=== PATIENT | female | born 1985 | race Caucasian/White ===

== ENCOUNTER 2017-03-30 08:35 | Emergency (ER) | payer OTHER ==
[~2017-03-30] VITALS: Ht 162.6 cm; Wt 95.3 kg
--- NOTE | 2017-03-30 09:12 | PHYS DOC ---
Past History Past Medical History: Asthma Past Surgical History: , Other Additional Past Surgical Histo: right ovarian removal for an ectopic Smoking: Non-smoker Alcohol Use: None Drug Use: None Adult General Chief Complaint Chief Complaint: FLU SYMPTOM HPI HPI Otherwise healthy 31-year-old female who complains of a 3 week history of intermittent cough that is nonproductive. About 3 weeks ago she was seen by her primary care doctor and placed on ten-day course of Augmentin for suspected bronchitis and a sinus infection. She had intermittent increased pressure nose as well as drainage from her throat causing a productive cough. Over the last several weeks this got better but now she's had return of symptoms. She works in a [employer] and she is exposed to sick contacts. SHE'S BEEN ATTEMPTING TO USE HER INHALER AT HOME TO TREAT HER TIGHTNESS ACROSS HER CHEST only to have the coughing causes chest pain with every cough. Patient says the pain is sharp and achy when she takes deep breaths since and coughs. There is no documented fever , chills, headache, neck pain. She does have a slight sore throat with every time she coughs. She's had no change in voice no anterior neck stiffness or pain. Patient denies any abdominal pain other than some soreness from all the coughing. Patient denies any recent travel outside the country, denies any need for steroids, denies any recent surgeries. Patient is not truly short of breath just hurts to breathe. Patient's has never been intubated for her asthma. Differential diagnosis: Acute myocardial ischemia, heart failure, cardiac tamponade, bronchospasm, pulmonary embolism, pneumothorax, pulmonary infection i.e. bronchitis or pneumonia, upper airway obstruction, anaphylaxis, aspiration , psychogenic, pulmonary contusion, toxidrome, pneumomediastinum, noncardiogenic pulmonary edema or ARDS, COPD, tuberculosis, cystic fibrosis, asthma, high altitude pulmonary edema, valvular dysfunction, cardiac dysrhythmia , stroke, neuromuscular diseases like myasthenia gravis gravis, ALS, Guillain- Castro syndrome, metabolic acidosis to include diabetic ketoacidosis, sepsis, and obstructive disorders like massive obesity Review of Systems Review of Systems Constitutional: Positive for subjective fevers and chills Eyes: Denies change in visual acuity, redness, or eye pain [] HENT: Positive for nasal congestion and sore throat Respiratory: Positive for cough that is productive without clear shortness of breath Cardiovascular: No additional information not addressed in HPI [] GI: Negative for abdominal pain, nausea, vomiting, bloody stools or diarrhea [] : Denies dysuria or hematuria [] Musculoskeletal: Denies back pain or joint pain patient does claim to have myalgias [] Integument: Denies rash or skin lesions [] Neurologic: Denies headache, focal weakness or sensory changes [] Endocrine: Denies polyuria or polydipsia [] All other systems were reviewed and found to be within normal limits, except as documented in this note. Current Medications Current Medications Current Medications Medications (Trade) Dose Ordered Sig/Dayna Start Time Stop Time Status Last Admin Dose Admin Guaifenesin (MUCINEX ER with DM) 1 tab BID 03/30/17 21:00 UNV Ketorolac Tromethamine (Toradol) 60 mg 1X ONCE 03/30/17 09:15 03/30/17 09:16 UNV Physical Exam Physical Exam Other vital signs recorded the chart patient noted to be not mildly tachypnea not hypoxic not tachycardic. Constitutional: Well developed, well nourished, patient is obese no acute distress, non-toxic appearance. [] HENT: Normocephalic, atraumatic, bilateral external ears normal, oropharynx moist there is mild erythema, no oral exudates, nose normal. Patient's turbinates are boggy but no mucoid discharge. Patient has no facial tenderness over the frontomaxillary sinuses [] Eyes: PERRLA, EOMI, conjunctiva normal, no discharge. [] Neck: Normal range of motion, no tenderness, supple, no stridor. No anterior lymphadenopathy [] Cardiovascular:Heart rate regular rhythm, no murmur [] Lungs & Thorax: Bilateral breath sounds clear to auscultation clear to auscultation bilaterally no wheezes rhonchi rales or crackles, no accessory muscle use no retractions[] Abdomen: Bowel sounds normal, soft, no tenderness, no masses, no pulsatile masses. [] Skin: Warm, dry, no erythema, no rash. Neurologic: Alert and oriented X 3, normal motor function, normal sensory function, no focal deficits noted. [] Psychologic: Affect normal, judgement normal, mood normal. [] Current Patient Data Vital Signs Vital Signs Date Time Temp Pulse Resp B/P (MAP) Pulse Ox O2 Delivery O2 Flow Rate FiO2 03/30/17 08:57 97.8 68 22 99 Room Air EKG EKG [] Radiology/Procedures Radiology/Procedures [] Course & Med Decision Making Course & Med Decision Making Pertinent Labs and Imaging studies reviewed. (See chart for details) Patient presents like URI-like symptoms with a nonproductive intermittently productive cough with sinus drainage sore throat and cough and chest wall pain from cough. Patient's lungs are clear to auscultation given recent antibiotics we will complete a PA and lateral chest x-ray as well as influenza swab. We will give her a dose of Toradol and some guaifenesin here while she waits for his results [] Time Is now 9:45 AM patient's chest x-ray reviewed by me read by radiology demonstrates no acute infiltrate. [address] [address] IMAGING REPORT Signed PATIENT: MINDI GARCIA ACCOUNT: [id number] : 1985 LOCATION: ER AGE: 31 SEX: F EXAM STATUS: REG ER ORD. PHYSICIAN: CHRIS THOMSON MD REASON: cough PROCEDURE: CHEST PA & LATERAL Chest, 2 views, 03/30/2017: History: Cough The heart size and pulmonary vascularity are normal. No pulmonary infiltrates are seen. There is no evidence of pleural fluid. Mild scattered spurs are present in the spine. IMPRESSION: No acute cardiopulmonary abnormality is detected. DICTATED AND SIGNED BY: BOZENA LEVI MD DATE: 03/30/17 0926 CC: CHRIS THOMSON MD; LESLIE NASCIMENTO DO ~ She is resting quietly as she waits for influenza swab results. Time is now 10:20 AM patient informs as well as negative for flu. Patient is resting quietly and will treat her as an upper respiratory tract infection with supportive medications discharge: I've spoken with the patient and/or caregivers. I've explained the patient's condition, diagnosis and treatment plan based on information available to me at this time. I've answered the patient's and/or caregivers questions and addressed any concerns. The patient and/or caregivers have a good understanding the patient's diagnosis, condition and treatment plan as can be expected at this point. Vital signs have been stabilized. The patient's condition is stable for discharge from the emergency department. The patient will pursue further outpatient evaluation with her primary care provider or other designated consulting physician as outlined in the discharge instructions. Patient and/or caregivers are agreeable to this plan of care and follow-up instructions have been explained in detail. The patient and/or caregivers have received these instructions in written format and expressed understanding of these discharge instructions. The patient and her caregivers are aware that if any significant change in condition or worsening of symptoms should prompt him to immediately return to this of the closest emergency department. If an emergent department is not readily available I would encourage him to call 911. Dragon Disclaimer Dragon Disclaimer This electronic medical record was generated, in whole or in part, using a voice recognition dictation system. Departure Departure: Impression: Primary Impression: Upper respiratory infection Disposition: HOME, SELF-CARE Condition: IMPROVED Referrals: LESLIE NASCIMENTO DO (PCP) Patient Instructions: Upper Respiratory Infection, Adult Additional Instructions: discharge: I've spoken with the patient and/or caregivers. I've explained the patient's condition, diagnosis and treatment plan based on information available to me at this time. I've answered the patient's and/or caregivers questions and addressed any concerns. The patient and/or caregivers have a good understanding the patient's diagnosis, condition and treatment plan as can be expected at this point. Vital signs have been stabilized. The patient's condition is stable for discharge from the emergency department. The patient will pursue further outpatient evaluation with her primary care provider or other designated consulting physician as outlined in the discharge instructions. Patient and/or caregivers are agreeable to this plan of care and follow-up instructions have been explained in detail. The patient and/or caregivers have received these instructions in written format and expressed understanding of these discharge instructions. The patient and her caregivers are aware that if any significant change in condition or worsening of symptoms should prompt him to immediately return to this of the closest emergency department. If an emergent department is not readily available I would encourage him to call 911. Scripts Naproxen Sodium (NAPROXEN SODIUM) 275 Mg Tablet 275 MG PO BID for 7 Days, #14 TAB Prov: CHRIS THOMSON MD 03/30/17 Guaifenesin/Dextromethorphan (MUCINEX DM ER 1,200-60 MG TAB) 1 Each Tbmp.12hr 1 TAB PO BID, #20 TAB 1 Refill Prov: CHRIS THOMSON MD 03/30/17 Diphenhydramine Hcl (BENADRYL) 25 Mg Capsule 25 MG PO QID for 7 Days, #28 CAP Prov: CHRIS THOMSON MD 03/30/17 CHRIS THOMSON MD Mar 30, 2017 09:12
--- NOTE | 2017-03-30 09:30 | RAD ---
Chest, 2 views, 03/30/2017: History: Cough The heart size and pulmonary vascularity are normal. No pulmonary infiltrates are seen. There is no evidence of pleural fluid. Mild scattered spurs are present in the spine. IMPRESSION: No acute cardiopulmonary abnormality is detected.
[2017-03-30] MEDS ORDERED: guaiFENesin DM 600/30MG 1 TAB TAB.ER.12H PO ONE (09:45)
[2017-03-30] MEDS ORDERED: KETOROLAC 60 MG/2 ML VIAL. IM ONE (09:45)
[2017-03-30 10:18] LABS: INFLUENZA A PATIENT NEGATIVE (NEGATIVE); INFLUENZA B PATIENT NEGATIVE (NEGATIVE)
[2017-03-30] MEDS ORDERED: NAPR275T59 PO (10:21)
[2017-03-30] MEDS ORDERED: DIPH25CA58 PO (10:21)
[2017-03-30] MEDS ORDERED: GUAI1TBM10 PO (10:21)
[2017-03-30 10:50] VITALS: BP 138/86
== END 2017-03-30 10:50 | disposition home or self-care (01) ==
LOC: ER 08:35
DX: J06.9 Acute upper respiratory infection, unspecified (principal); J45.909 Unspecified asthma, uncomplicated
CPT/HCPCS: 71046; 87804; 96372; 99285; J1885

== ENCOUNTER 2017-08-11 11:30 | Emergency (ER) | payer OTHER ==
[~2017-08-11] VITALS: Ht 162.6 cm; Wt 107.5 kg
[~2017-08-11 11:30] MED LIST: DIPH25CA58 PO; GUAI1TBM10 PO; NAPR275T59 PO
[2017-08-11] MEDS ORDERED: IV NORMAL SALINE 1,000ML 1,000 ML IV ONE (12:15)
[2017-08-11] MEDS ORDERED: ONDANSETRON PF 4 MG/2 ML VIAL. IV ONE (12:45)
[2017-08-11 12:47] LABS: BASO % 1 % (0-3); EOS # 0.1 x10^3/uL (0.0-0.7); EOS % 2 % (0-3); HEMATOCRIT 40.2 % (36.0-47.0); HEMOGLOBIN 14.1 g/dL (12.0-15.5); LYMPH # 1.8 x10^3/uL (1.0-4.8); LYMPH % 37 % (24-48); MEAN CORPUSCULAR HEMOGLOBIN 36 pg (25-35); MEAN CORPUSCULAR HGB CONC 35 g/dL (31-37); MEAN CORPUSCULAR VOLUME 102 fL (79-100); MONO # 0.4 x10^3/uL (0.0-1.1); MONO % 7 % (0-9); NEUT # 2.7 x10^3uL (1.8-7.7); NEUT % 54 % (31-73); PLATELET COUNT 213 x10^3/uL (140-400); RED BLOOD COUNT 3.96 x10^6/uL (3.50-5.40); RED CELL DISTRIBUTION WIDTH 12.5 % (11.5-14.5); WHITE BLOOD COUNT 5.1 x10^3/uL (4.0-11.0)
[2017-08-11 12:54] LABS: PREG TEST PT QUAL NEGATIVE (NEG)
[2017-08-11 12:58] LABS: BACTERIA,URINE 0 /HPF (0-FEW); BILIRUBIN,URINE NEG (NEG); CLARITY,URINE CLEAR; COLOR,URINE YELLOW; GLUCOSE,URINE NEG (NEG); NITRITE,URINE NEG (NEG); SQUAMOUS EPITHELIAL CELL,UR OCC /LPF; UROBILINOGEN,URINE 0.2 mg/dL (0.2 mg/dL); WBC,URINE 0 /HPF (0-4)
[2017-08-11 12:59] LABS: ALBUMIN 3.9 g/dL (3.4-5.0); ALBUMIN/GLOBULIN RATIO 1.3 (1.0-1.7); AMORPHOUS SEDIMENT,UR PRESENT /HPF; CALCIUM 8.5 mg/dL (8.5-10.1); CREATININE 0.6 mg/dL (0.6-1.0); GFR 115.9; POTASSIUM 3.9 mmol/L (3.5-5.1); TOTAL BILIRUBIN 0.5 mg/dL (0.2-1.0)
--- NOTE | 2017-08-11 13:59 | ED.ADGEN ---
Past History Past Medical History: Asthma Past Surgical History: , Other Additional Past Surgical Histo: right ovarian removal for an ectopic Smoking: Non-smoker Alcohol Use: None Drug Use: None Adult General Chief Complaint Chief Complaint Right-sided abdominal pain HPI HPI Patient is a 31-year-old female who presents with right-sided abdominal pain, nausea. Symptoms began yesterday gradually progress to a. Pain is described as aching is rated moderate to severe. It is worse palpation movement and ambulation. It is partially relieved with rest. No fever chills, no vomiting. No constipation arrives diarrhea. No material. No other acute symptoms or complaints. Review of Systems Review of Systems Review symptoms as per history of present illness. All other review symptoms are negative. All other systems were reviewed and found to be within normal limits, except as documented in this note. Current Medications Current Medications Current Medications Medications (Trade) Dose Ordered Sig/Dayna Start Time Stop Time Status Last Admin Dose Admin Fentanyl Citrate (Fentanyl 2ml Vial) 75 mcg 1X ONCE 08/11/17 12:45 08/11/17 12:46 DC 08/11/17 12:31 75 MCG Iohexol (Omnipaque 300 Mg/ml) 75 ml 1X ONCE 08/11/17 14:00 08/11/17 14:01 DC 08/11/17 13:48 75 ML Ondansetron HCl (Zofran) 4 mg 1X ONCE 08/11/17 12:45 08/11/17 12:46 DC 08/11/17 12:31 4 MG Sodium Chloride 1,000 ml @ 1,000 mls/hr 1X ONCE 08/11/17 12:15 08/11/17 13:14 DC 08/11/17 12:31 1,000 MLS/HR Allergies Allergies Allergies Coded Allergies Type Severity Reaction Last Updated Verified No Known Drug Allergies 03/30/17 No Physical Exam Physical Exam Constitutional: Well developed, well nourished anxious, moderate discomfort secondary to pain. [] HENT: Normocephalic, atraumatic, bilateral external ears normal, oropharynx moist, nose normal. [] Eyes: PERRLA, EOMI, conjunctiva normal, no discharge. [] Neck: Normal range of motion, no tenderness, supple, no stridor. [] Cardiovascular:Heart rate regular rhythm, no murmur [] Lungs & Thorax: Bilateral breath sounds clear to auscultation [] Abdomen: Bowel sounds normal, soft, fused right sided/flank pain, tenderness, obesity compromising exam.[] Skin: Warm, dry, no erythema, no rash. [] Back:R CVA tenderness. [] Extremities: No tenderness, no cyanosis, no clubbing, ROM intact, no edema. [] Neurologic: Alert and oriented X 3, normal motor function, normal sensory function, no focal deficits noted. [] Psychologic: Affect normal, judgement normal, mood normal. [] Current Patient Data Vital Signs Vital Signs Date Time Temp Pulse Resp B/P (MAP) Pulse Ox O2 Delivery O2 Flow Rate FiO2 08/11/17 15:33 70 18 136/71 (92) 98 Room Air 08/11/17 11:40 98.4 Lab Results Laboratory Tests Test 08/11/17 12:24 White Blood Count 5.1 x10^3/uL (4.0-11.0) Red Blood Count 3.96 x10^6/uL (3.50-5.40) Hemoglobin 14.1 g/dL (12.0-15.5) Hematocrit 40.2 % (36.0-47.0) Mean Corpuscular Volume 102 fL (79-100) H Mean Corpuscular Hemoglobin 36 pg (25-35) H Mean Corpuscular Hemoglobin Concent 35 g/dL (31-37) Red Cell Distribution Width 12.5 % (11.5-14.5) Platelet Count 213 x10^3/uL (140-400) Neutrophils (%) (Auto) 54 % (31-73) Lymphocytes (%) (Auto) 37 % (24-48) Monocytes (%) (Auto) 7 % (0-9) Eosinophils (%) (Auto) 2 % (0-3) Basophils (%) (Auto) 1 % (0-3) Neutrophils # (Auto) 2.7 x10^3uL (1.8-7.7) Lymphocytes # (Auto) 1.8 x10^3/uL (1.0-4.8) Monocytes # (Auto) 0.4 x10^3/uL (0.0-1.1) Eosinophils # (Auto) 0.1 x10^3/uL (0.0-0.7) Basophils # (Auto) 0.0 x10^3/uL (0.0-0.2) Urine Collection Type Unknown Urine Color Yellow Urine Clarity Clear Urine pH 7.5 Urine Specific Bradley 1.020 Urine Protein Neg (NEG-TRACE) Urine Glucose (UA) Neg mg/dL (NEG) Urine Ketones (Stick) Neg mg/dL (NEG) Urine Blood Mod (NEG) Urine Nitrite Neg (NEG) Urine Bilirubin Neg (NEG) Urine Urobilinogen Dipstick 0.2 mg/dL (0.2 mg/dL) Urine Leukocyte Esterase Neg (NEG) Urine RBC 1-2 /HPF (0-2) Urine WBC 0 /HPF (0-4) Urine Squamous Epithelial Cells Occ /LPF Urine Renal Epithelial Cells Occ /LPF Urine Amorphous Sediment Present /HPF Urine Bacteria 0 /HPF (0-FEW) Urine Mucus Slight /LPF Sodium Level 139 mmol/L (136-145) Potassium Level 3.9 mmol/L (3.5-5.1) Chloride Level 104 mmol/L (98-107) Carbon Dioxide Level 28 mmol/L (21-32) Anion Gap 7 (6-14) Blood Urea Nitrogen 10 mg/dL (7-20) Creatinine 0.6 mg/dL (0.6-1.0) Estimated GFR (Cockcroft-Gault) 115.9 BUN/Creatinine Ratio 17 (6-20) Glucose Level 98 mg/dL (70-99) Calcium Level 8.5 mg/dL (8.5-10.1) Total Bilirubin 0.5 mg/dL (0.2-1.0) Aspartate Amino Transferase (AST) 21 U/L (15-37) Alanine Aminotransferase (ALT) 34 U/L (14-59) Alkaline Phosphatase 59 U/L (46-116) Total Protein 7.0 g/dL (6.4-8.2) Albumin 3.9 g/dL (3.4-5.0) Albumin/Globulin Ratio 1.3 (1.0-1.7) Lipase 84 U/L (73-393) Serum Test, Qualitative Negative (NEG) Microbiology 08/11/17 Wet Prep - Final, Complete EKG EKG [] Radiology/Procedures Radiology/Procedures [CT abdomen pelvis: 6 cm right adnexal cyst, normal appendix, fatty infiltration of the liver. Ultrasound pelvis: Normal blood flow to ovaries, moderate distress right-sized ovarian cyst] Course & Med Decision Making Course & Med Decision Making Pertinent Labs and Imaging studies reviewed. (See chart for details) [Right pelvic pain with evidence of right ovarian cyst with good blood flow, clinical bacterial vaginosis with positive wet prep. Antibiotics and pain medication given with PCP/LEGAL ADMINISTRATOR follow-up recommended. Return precautions reviewed.] Final Impression Final Impression [1. Pelvic pain 2. R Ovarian cyst 3. Bacterial endocarditis] Dragon Disclaimer Dragon Disclaimer This electronic medical record was generated, in whole or in part, using a voice recognition dictation system. PHAN MORAN DO Aug 11, 2017 13:59
[2017-08-11] MEDS ORDERED: IOHEXOL 300 MG/ML 75 ML VIAL. IV ONE (14:00)
--- NOTE | 2017-08-11 14:07 | RAD ---
PQRS Compliance Statement: One or more of the following individualized dose reduction techniques were utilized for this examination: 1. Automated exposure control 2. Adjustment of the mA and/or kV according to patient size 3. Use of iterative reconstruction technique CT ABD PELV W/ IV CONTRST ONLY Clinical Indication: RIGHT FLANK PAIN FOR 3 DAYS Comparison: None. Technique: Helical CT imaging of the abdomen and pelvis is performed after 78 cc Omnipaque 300 IV contrast. Oral contrast not given. Findings: Lung bases clear. Cardiac size normal. Mild fatty infiltration of the liver, focal fatty sparing along the gallbladder fossa. Gallbladder, spleen, pancreas, adrenal glands, abdominal aorta, and kidneys are normal. Stomach unremarkable. No dilated small bowel. The appendix is normal. There is no colon wall thickening. No abdominal adenopathy or free fluid. The urinary bladder is normal. Uterus is normal. There is a 6 cm right adnexal cyst. Origin is probably ovarian. Left ovary unremarkable. No pelvic free fluid. No acute bone abnormality. IMPRESSION: 1. 6 cm right adnexal cyst. Suggest pelvic ultrasound for further evaluation. 2. Mild fatty infiltration of the liver. 3. The appendix is normal. Electronically signed by: Jd Jones MD (08/11/2017 2:03 PM) [id number]
--- NOTE | 2017-08-11 15:41 | RAD ---
US PELVIS W/TV Clinical Indication: Abnormality on CT. Right lower quadrant pain. Comparison: CT abdomen and pelvis with contrast, earlier same day. TECHNIQUE: Real-time ultrasound imaging of the pelvis using transabdominal and transvaginal window is performed. Findings: Uterus measures 10.1 x 5.5 x 4.1 cm transabdominally. The ovaries are identified transabdominally but are better evaluated transvaginally. Transvaginally the endometrial stripe measures 5 mm. There is an 8 mm nabothian cyst. There is right ovary functional cyst measuring 4.9 x 5.1 x 4.4 cm. Right ovary measures 6.2 x 5.7 x 5.8 cm. Left ovary measures 2.7 x 1.8 x 3.3 cm. There is normal blood flow in the ovaries. No cul-de-sac free fluid. No evidence of adnexal mass. IMPRESSION: Normal blood flow in the ovaries. There is a moderate sized right ovary functional cyst. Electronically signed by: Jd Jones MD (08/11/2017 3:37 PM) [id number]
[2017-08-11] MEDS ORDERED: METR500T PO (16:03)
[2017-08-11] MEDS ORDERED: HYDR-971 PO (16:03)
[2017-08-11 16:09] VITALS: BP 142/86
[2017-08-12 13:13] LABS: CHLAMYDIA PROBE Negative (Negative)
== END 2017-08-11 16:10 | disposition home or self-care (01) ==
LOC: ER 11:30
DX: N83.201 Unspecified ovarian cyst, right side (principal); I33.0 Acute and subacute infective endocarditis; J45.909 Unspecified asthma, uncomplicated
CPT/HCPCS: 36415; 74177; 76830; 76856; 80053; 81001; 83690; 84703; 85025; 87070; 87491; 87591; 96374; 96375; 99285; J2405; J3010; Q0111; Q9967; J7030

== ENCOUNTER 2017-09-03 14:57 | Emergency (ER) | payer SELFPAY ==
[~2017-09-03] VITALS: Ht 162.6 cm; Wt 107.5 kg
[~2017-09-03 14:57] MED LIST changes: +HYDR-971 PO; +METR500T PO
[2017-09-03] MEDS ORDERED: cloNIDine HCL 0.1 MG TABLET PO ONE (15:45)
[2017-09-03] MEDS ORDERED: ACETAMINOPHEN 500 MG TABLET PO ONE (15:45)
[2017-09-03] MEDS ORDERED: ONDANSETRON ODT 4 MG TAB.RAPDIS PO ONE (15:45)
--- NOTE | 2017-09-03 16:14 | ED.ADGEN ---
Past History Past Medical History: Asthma, Other Past Surgical History: , Other Additional Past Surgical Histo: right ovarian removal for an ectopic Smoking: Non-smoker Alcohol Use: None Drug Use: None Adult General Chief Complaint Chief Complaint Headache, nausea, dizziness HPI HPI Patient is a 32-year-old female presents with multiple medical complaints. Patient was evaluated at this ED one month ago and at [facility] yesterday for pelvic pain and diagnosed with bacterial vaginosis and ovarian cysts. States today while at work, she developed a headache began to feel lightheaded dizzy. Reports nausea. No sick. Near syncopal episodes. No blurred vision, chest pain shortness of breath. Reports lower abdominal pain unchanged from yesterday. Patient noted be hypertensive blood pressure 200s over 100s. Patient tearful and anxious. No other acute symptoms or complaints. Patient states she had extensive workup yesterday which was unremarkable at [facility].[] Review of Systems Review of Systems ROS as per HPI All other systems were reviewed and found to be within normal limits, except as documented in this note. Current Medications Current Medications Current Medications Medications (Trade) Dose Ordered Sig/Dayna Start Time Stop Time Status Last Admin Dose Admin Acetaminophen (Tylenol) 1,000 mg 1X ONCE 09/03/17 15:45 09/03/17 15:46 DC 09/03/17 15:53 1,000 MG Clonidine HCl (Catapres) 0.2 mg 1X ONCE 09/03/17 15:45 09/03/17 15:46 DC Ondansetron HCl (Zofran Odt) 4 mg 1X ONCE 09/03/17 15:45 09/03/17 15:46 DC 09/03/17 15:53 4 MG Allergies Allergies Allergies Coded Allergies Type Severity Reaction Last Updated Verified No Known Drug Allergies 03/30/17 No Physical Exam Physical Exam Constitutional: Well developed, well nourished, anxious, tearful. [] HENT: Normocephalic, atraumatic, bilateral external ears normal, oropharynx moist, , nose normal. [] Eyes: PERRLA, EOMI, conjunctiva normal, no discharge. [] Neck: Normal range of motion, no tenderness, supple, no stridor. [] Cardiovascular:Heart rate regular rhythm, no murmur [] Lungs & Thorax: Bilateral breath sounds clear to auscultation [] Abdomen: Bowel sounds normal, lower abdominal pains, habitus obscuring exam.[] Skin: Warm, dry, no erythema, no rash. [] Back: No tenderness, no CVA tenderness. [] Extremities: No tenderness no edema. [] Neurologic: Alert and oriented X 3, normal motor function, normal sensory function, no focal deficits noted. [] Psychologic: Affect normal, judgement normal, mood normal. [] Current Patient Data Vital Signs Vital Signs Date Time Temp Pulse Resp B/P (MAP) Pulse Ox O2 Delivery O2 Flow Rate FiO2 09/03/17 15:38 58 22 128/68 (88) 98 09/03/17 15:10 98.4 Room Air EKG EKG [] Radiology/Procedures Radiology/Procedures [] Course & Med Decision Making Course & Med Decision Making Pertinent Labs and Imaging studies reviewed. (See chart for details) [Patient anxious, tearful and hyperventilating likely contributing to dizziness. Symptoms addressed similar to previous migraines/anxiety attacks. Outpatient records from yesterday requested reviewed. Outpatient treatment PCP follow-up recommended..] Final Impression Final Impression [1. Chronic recurrent migraine [place] 2. Anxiety attak] Dragon Disclaimer Dragon Disclaimer This electronic medical record was generated, in whole or in part, using a voice recognition dictation system. PHAN MORAN DO Sep 03, 2017 16:14
[2017-09-03] MEDS ORDERED: PROC10TA57 PO (16:42)
[2017-09-03] MEDS ORDERED: BUTA1CAP31 PO (16:42)
[2017-09-03 16:50] VITALS: BP 140/75
== END 2017-09-03 16:52 | disposition home or self-care (01) ==
LOC: ER 14:57
DX: G43.909 Migraine, unspecified, not intractable, without status migrainosus (principal); R10.2 Pelvic and perineal pain; F41.9 Anxiety disorder, unspecified; J45.909 Unspecified asthma, uncomplicated
CPT/HCPCS: 99283; Q0162

== ENCOUNTER 2017-09-07 09:48 | Emergency (ER) | payer SELFPAY ==
[~2017-09-07] VITALS: Ht 162.6 cm; Wt 107.5 kg
[~2017-09-07 09:48] MED LIST changes: +BUTA1CAP31 PO; +PROC10TA57 PO
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
--- NOTE | 2017-09-07 10:14 | EKG ---
[address] [address] Test Date: 2017-09-07 Test Time: 10:08:33 Pat Name: MINDI GARCIA Department: Room: Gender: F Education Faculty Member: FLORECITA : 1985 Requested By: JOSSELYN ADKINS Order Number: [id number] Reading MD: Measurements Intervals [place] Rate: 60 P: 53 TX: 150 QRS: 56 QRSD: 78 T: 64 QT: 388 QTc: 388 Interpretive Statements SINUS RHYTHM NORMAL ECG RI6.01 No previous ECG available for comparison
--- NOTE | 2017-09-07 10:16 | RAD ---
Chest, 2 views, 09/07/2017: HISTORY: Shortness of breath, anxiety The heart size is normal. The lungs are clear. There is no evidence of pleural fluid. Mild spurring is present in the spine. IMPRESSION: No acute cardiopulmonary abnormality is detected. Electronically signed by: Miguel Roach MD (09/07/2017 10:13 AM) [facility]
[2017-09-07] MEDS ORDERED: ALBU8.5H8 INH (10:21)
[2017-09-07 10:34] VITALS: BP 156/100
== END 2017-09-07 10:30 | disposition home or self-care (01) ==
LOC: ER 09:48
DX: F41.9 Anxiety disorder, unspecified (principal); J45.909 Unspecified asthma, uncomplicated
CPT/HCPCS: 71046; 93005; 99284

== ENCOUNTER 2017-09-21 10:35 | Emergency (ER) | payer SELFPAY ==
[~2017-09-21] VITALS: Ht 162.6 cm; Wt 95.3 kg
[~2017-09-21 10:35] MED LIST changes: +ALBU8.5H8 INH
[2017-09-21] MEDS ORDERED: IV NORMAL SALINE 1,000ML 1,000 ML IV SCH (10:57)
[2017-09-21 11:23] LABS: BASO # 0.1 x10^3/uL (0.0-0.2); BASO % 1 % (0-3); EOS # 0.1 x10^3/uL (0.0-0.7); EOS % 3 % (0-3); HEMATOCRIT 41.5 % (36.0-47.0); HEMOGLOBIN 14.4 g/dL (12.0-15.5); LYMPH # 1.6 x10^3/uL (1.0-4.8); LYMPH % 33 % (24-48); MEAN CORPUSCULAR HEMOGLOBIN 35 pg (25-35); MEAN CORPUSCULAR HGB CONC 35 g/dL (31-37); MEAN CORPUSCULAR VOLUME 102 fL (79-100); MONO # 0.4 x10^3/uL (0.0-1.1); MONO % 8 % (0-9); NEUT # 2.6 x10^3uL (1.8-7.7); NEUT % 55 % (31-73); PLATELET COUNT 196 x10^3/uL (140-400); RED BLOOD COUNT 4.07 x10^6/uL (3.50-5.40); RED CELL DISTRIBUTION WIDTH 12.3 % (11.5-14.5); WHITE BLOOD COUNT 4.7 x10^3/uL (4.0-11.0)
[2017-09-21 11:29] LABS: AMPHETAMINE/METHAMPHETAMINE NEG (NEG); BARBITURATES NEG (NEG); BENZODIAZEPINES NEG (NEG); CANNABINOIDS POS (NEG); COCAINE NEG (NEG); METHADONE NEG (NEG); OPIATES NEG (NEG); PHENCYCLIDINE NEG (NEG)
[2017-09-21 11:34] LABS: BACTERIA,URINE FEW /HPF (0-FEW); BILIRUBIN,URINE NEG (NEG); CLARITY,URINE CLEAR; COLOR,URINE YELLOW; GLUCOSE,URINE NEG (NEG); NITRITE,URINE NEG (NEG); RBC,URINE 0 /HPF (0-2); SQUAMOUS EPITHELIAL CELL,UR OCC /LPF; UROBILINOGEN,URINE 0.2 mg/dL (0.2 mg/dL); WBC,URINE RARE /HPF (0-4)
[2017-09-21 11:39] LABS: ALBUMIN 3.7 g/dL (3.4-5.0); ALBUMIN/GLOBULIN RATIO 1.2 (1.0-1.7); CALCIUM 8.7 mg/dL (8.5-10.1); CREATININE 0.7 mg/dL (0.6-1.0); GFR 96.4; POTASSIUM 3.8 mmol/L (3.5-5.1); TOTAL BILIRUBIN 0.4 mg/dL (0.2-1.0); TOTAL PROTEIN 6.7 g/dL (6.4-8.2)
[2017-09-21] MEDS ORDERED: diphenhydrAMINE 50 MG/ML VIAL IVP ONE (12:00)
[2017-09-21] MEDS ORDERED: ONDANSETRON PF 4 MG/2 ML VIAL. IV ONE (12:00)
[2017-09-21] MEDS ORDERED: KETOROLAC 30 MG/ML VIAL. IV ONE (12:00)
[2017-09-21 12:29] VITALS: BP 151/100
--- NOTE | 2017-09-21 12:43 | RAD ---
Right lower extremity venous Doppler ultrasound History: Right thigh pain x3 days. Comparison: None. Procedure: Color flow Doppler, Doppler spectral analysis, and 2D images are obtained with and without compression in the area of the common femoral vein, superficial femoral vein - femoral vein junction, main femoral vein (superficial femoral vein) and popliteal vein. Veins of the proximal calf are also imaged. Findings: There is normal color flow, augmentation, and compressibility of all visualized vein segments. No evidence of deep venous thrombus is present. IMPRESSION: No evidence of right lower extremity deep venous thrombosis. Electronically signed by: Jd Jones MD (09/21/2017 12:39 PM) [id number]
[2017-09-21] MEDS ORDERED: percogesic PO (12:48)
[2017-09-21] MEDS ORDERED: ONDA4TAB10 SL (12:48)
--- NOTE | 2017-09-21 12:49 | PHYS DOC ---
Past History Past Medical History: Asthma, Migraines Past Surgical History: Additional Past Surgical Histo: right ovarian removal for an ectopic Smoking: Non-smoker Alcohol Use: None Drug Use: None Adult General Chief Complaint Chief Complaint: abdominal pain, headache, extremity pain [facility] HPI 32-year-old female patient complaining of multiple medical problem. Patient complaining of right lower quadrant and right side of abdominal pain as a chronic pain for 1.5 month that getting worse for the last 3 days and rated her pain 8/10. Patient complaining of nausea and anorexia without fever and chills, vomiting, diarrhea and constipation, urinary symptom. She also states she has history of migraine headache and for the last 3 days she has left parietal headache as a constant throbbing pain with phobia nausea. Rated her headache 6/ 10. Patient also complaining of right thigh pain for the last 2 days without injury that getting worse with activity rated her pain 8/10 without focal neuro deficit. Review of Systems Review of Systems Constitutional: Denies fever or chills [] Eyes: Denies change in visual acuity, redness, or eye pain [] HENT: Denies nasal congestion or sore throat [] Respiratory: Denies cough or shortness of breath [] Cardiovascular: No additional information not addressed in HPI [] GI: Reports abdominal pain, nausea, denies vomiting, bloody stools or diarrhea [ ] : Denies dysuria or hematuria [] Musculoskeletal: Denies back pain or joint pain [] Integument: Denies rash or skin lesions [] Neurologic: Reports headache, denies focal weakness or sensory changes [] Endocrine: Denies polyuria or polydipsia [] All other systems were reviewed and found to be within normal limits, except as documented in this note. Current Medications Current Medications Current Medications Medications (Trade) Dose Ordered Sig/Dayna Start Time Stop Time Status Last Admin Dose Admin Alprazolam (Xanax) 1 mg 1X ONCE 09/21/17 13:00 09/21/17 13:01 09/21/17 12:40 1 MG Diphenhydramine HCl (Benadryl) 50 mg 1X ONCE 09/21/17 12:00 09/21/17 12:01 DC 09/21/17 11:39 50 MG Ketorolac Tromethamine (Toradol) 30 mg 1X ONCE 09/21/17 12:00 09/21/17 12:01 DC 09/21/17 11:39 30 MG Ondansetron HCl (Zofran) 4 mg 1X ONCE 09/21/17 12:00 09/21/17 12:01 DC 09/21/17 11:38 4 MG Sodium Chloride 1,000 ml @ 1,000 mls/hr Q1H 09/21/17 10:57 09/21/17 11:56 DC 09/21/17 11:18 1,000 MLS/HR Allergies Allergies Allergies Coded Allergies Type Severity Reaction Last Updated Verified No Known Drug Allergies 03/30/17 No Physical Exam Physical Exam Constitutional: Well nourished, no acute distress, non-toxic appearance, obese . [] HENT: Normocephalic, atraumatic, oropharynx moist, no oral exudates, nose normal. [] Eyes: PERRLA, EOMI, conjunctiva normal, no discharge. [] Neck: Normal range of motion, no tenderness, supple, no stridor. [] Cardiovascular:Heart rate regular rhythm, no murmur [] Lungs & Thorax: Bilateral breath sounds clear to auscultation [] Abdomen: Bowel sounds normal, soft, suprapubic and recent of abdominal voluntary guarding, no tenderness, no masses, no pulsatile masses. [] Skin: Warm, dry, no erythema, no rash. [] Back: No tenderness, no CVA tenderness. [] Extremities: No tenderness, no cyanosis, no clubbing, ROM intact, no edema. [] Neurologic: Alert and oriented X 3, normal motor function, normal sensory function, no focal deficits noted. [] Psychologic: Affect normal, judgement normal, mood normal. [] Current Patient Data Vital Signs Vital Signs Date Time Temp Pulse Resp B/P (MAP) Pulse Ox O2 Delivery O2 Flow Rate FiO2 09/21/17 12:29 51 20 151/100 (117) 97 Room Air 09/21/17 10:35 97.6 Lab Results Laboratory Tests Test 09/21/17 10:11 09/21/17 10:55 09/21/17 11:05 POC Urine HCG, Qualitative hcg negative (Negative) Urine Collection Type Unknown Urine Color Yellow Urine Clarity Clear Urine pH 8.5 Urine Specific [place] 1.020 Urine Protein Neg (NEG-TRACE) Urine Glucose (UA) Neg mg/dL (NEG) Urine Ketones (Stick) Neg mg/dL (NEG) Urine Blood Trace (NEG) Urine Nitrite Neg (NEG) Urine Bilirubin Neg (NEG) Urine Urobilinogen Dipstick 0.2 mg/dL (0.2 mg/dL) Urine Leukocyte Esterase Neg (NEG) Urine RBC 0 /HPF (0-2) Urine WBC Rare /HPF (0-4) Urine Squamous Epithelial Cells Occ /LPF Urine Bacteria Few /HPF (0-FEW) Urine Mucus Slight /LPF Urine Opiates Screen Neg (NEG) Urine Methadone Screen Neg (NEG) Urine Barbiturates Neg (NEG) Urine Phencyclidine Screen Neg (NEG) Urine Amphetamine/Methamphetamine Neg (NEG) Urine Benzodiazepines Screen Neg (NEG) Urine Cocaine Screen Neg (NEG) Urine Cannabinoids Screen Pos (NEG) Urine Ethyl Alcohol Neg (NEG) White Blood Count 4.7 x10^3/uL (4.0-11.0) Red Blood Count 4.07 x10^6/uL (3.50-5.40) Hemoglobin 14.4 g/dL (12.0-15.5) Hematocrit 41.5 % (36.0-47.0) Mean Corpuscular Volume 102 fL (79-100) H Mean Corpuscular Hemoglobin 35 pg (25-35) Mean Corpuscular Hemoglobin Concent 35 g/dL (31-37) Red Cell Distribution Width 12.3 % (11.5-14.5) Platelet Count 196 x10^3/uL (140-400) Neutrophils (%) (Auto) 55 % (31-73) Lymphocytes (%) (Auto) 33 % (24-48) Monocytes (%) (Auto) 8 % (0-9) Eosinophils (%) (Auto) 3 % (0-3) Basophils (%) (Auto) 1 % (0-3) Neutrophils # (Auto) 2.6 x10^3uL (1.8-7.7) Lymphocytes # (Auto) 1.6 x10^3/uL (1.0-4.8) Monocytes # (Auto) 0.4 x10^3/uL (0.0-1.1) Eosinophils # (Auto) 0.1 x10^3/uL (0.0-0.7) Basophils # (Auto) 0.1 x10^3/uL (0.0-0.2) Sodium Level 141 mmol/L (136-145) Potassium Level 3.8 mmol/L (3.5-5.1) Chloride Level 105 mmol/L (98-107) Carbon Dioxide Level 28 mmol/L (21-32) Anion Gap 8 (6-14) Blood Urea Nitrogen 7 mg/dL (7-20) Creatinine 0.7 mg/dL (0.6-1.0) Estimated GFR (Cockcroft-Gault) 96.4 BUN/Creatinine Ratio 10 (6-20) Glucose Level 111 mg/dL (70-99) H Calcium Level 8.7 mg/dL (8.5-10.1) Total Bilirubin 0.4 mg/dL (0.2-1.0) Aspartate Amino Transferase (AST) 33 U/L (15-37) Alanine Aminotransferase (ALT) 50 U/L (14-59) Alkaline Phosphatase 54 U/L (46-116) Total Protein 6.7 g/dL (6.4-8.2) Albumin 3.7 g/dL (3.4-5.0) Albumin/Globulin Ratio 1.2 (1.0-1.7) Lipase 99 U/L (73-393) EKG EKG [] Radiology/Procedures Radiology/Procedures [][place] [address] IMAGING REPORT Signed PATIENT: MINDI GARCIA ACCOUNT: [id number] : 1985 LOCATION: ER AGE: 32 SEX: F EXAM STATUS: REG ER ORD. PHYSICIAN: VEE AMAYA MD REASON: right thigh pain PROCEDURE: VENOUS LOWER EXTREMITY RIGHT Right lower extremity venous Doppler ultrasound History: Right thigh pain x3 days. Comparison: None. Procedure: Color flow Doppler, Doppler spectral analysis, and 2D images are obtained with and without compression in the area of the common femoral vein, superficial femoral vein - femoral vein junction, main femoral vein (superficial femoral vein) and popliteal vein. Veins of the proximal calf are also imaged. Findings: There is normal color flow, augmentation, and compressibility of all visualized vein segments. No evidence of deep venous thrombus is present. IMPRESSION: No evidence of right lower extremity deep venous thrombosis. Electronically signed by: Jd Jones MD (09/21/2017 12:39 PM) [id number] DICTATED AND SIGNED BY: JD JONES MD DATE: 09/21/17 1237 CC: LESLIE NASCIMENTO DO; VEE AMAYA MD ~ Course & Med Decision Making Course & Med Decision Making Pertinent Labs and Imaging studies reviewed. (See chart for details) Evaluation of patient in ER showed 32-year-old female patient with complaining of multiple problems. Patient had unremarkable physical exam. Blood pressure was 160s over 100s in several checking and patient states she usually has had elevation of blood pressure when she is in pain. Patient instructed to record her blood pressure and follow up with her primary care physician. Patient had unremarkable CT abdomen and pelvis and labs and felt better with treatment in ER. [] Dragon Disclaimer Dragon Disclaimer This electronic medical record was generated, in whole or in part, using a voice recognition dictation system. Departure Departure: Impression: Primary Impression: Abdominal pain Additional Impressions: Migraine headache Myofascial muscle pain Marijuana abuse Anxiety Elevated systolic blood pressure reading without diagnosis of hypertension Disposition: HOME, SELF-CARE (At 1244) Condition: IMPROVED Referrals: LESLIE NASCIMENTO DO (PCP) Patient Instructions: Abdominal Pain, Form - Blood Pressure Record Sheet, How to Take Your Blood Pressure, [id number], Hypertension, Managing Your High Blood Pressure, Migraine Headache, Muscle Strain Additional Instructions: Drink plenty of liquids Follow-up with your primary care physician in 3-5 days Return to ER if not getting better Scripts Ondansetron (ZOFRAN ODT) 4 Mg Tab.rapdis 1 TAB SL Q8HRS, #15 TAB Prov: VEE AMAYA MD 09/21/17 [percogesic] No Conflict Check 1 TAB PO QID PRN for PAIN, #14 Prov: VEE AMAYA MD 09/21/17 Critical Care Time Critical care time was [80] minutes exclusive of procedures. Problem Qualifiers VEE AMAYA MD Sep 21, 2017 12:49
[2017-09-21] MEDS ORDERED: ALPRAZolam 0.25 MG TABLET PO ONE (13:00)
== END 2017-09-21 12:50 | disposition home or self-care (01) ==
LOC: ER 10:35
DX: R10.9 Unspecified abdominal pain (principal); G43.909 Migraine, unspecified, not intractable, without status migrainosus; M79.1 Myalgia; F41.9 Anxiety disorder, unspecified; J45.909 Unspecified asthma, uncomplicated; R03.0 Elevated blood-pressure reading, without diagnosis of hypertension
CPT/HCPCS: 36415; 80053; 80307; 81001; 81025; 83690; 85025; 93971; 96374; 96375; 99285; J1200; J1885; J2405; G0479; J7030

== ENCOUNTER 2017-10-20 19:21 | Emergency (ER) | payer SELFPAY ==
[~2017-10-20] VITALS: Ht 162.6 cm; Wt 95.3 kg
[~2017-10-20 19:21] MED LIST changes: +ONDA4TAB10 SL; +percogesic PO
[2017-10-20] MEDS ORDERED: IV NORMAL SALINE 1,000ML 1,000 ML IV SCH (20:09)
--- NOTE | 2017-10-20 20:14 | PHYS DOC ---
Past History Past Medical History: Asthma, Migraines Past Surgical History: Additional Past Surgical Histo: right ovarian removal for an ectopic Smoking: Non-smoker Alcohol Use: None Drug Use: None Adult General Chief Complaint Chief Complaint: ABDOMINAL PAIN HPI HPI Patient is a 32 year old female who presents with complaint of left-sided abdominal pain. Patient states her symptoms have been present over the past day. Patient states the pain is sharp and radiates towards her left flank. Patient denies any associated fever, nausea, diarrhea, bloody stools, or vaginal discharge. Patient states her last menstrual period was one approximately 1.5 months ago. Patient states she does have history of ovarian cysts but she states that this pain is different as it is more intense. Of note patient has had multiple visits to the emergency department for abdominal pain complaints. Patient admits that she has had more than 5 CTs of her abdomen over the past 2 years with multiple negative workups. Patient rates her pain currently as 9 out of 10. Patient has not taken any medications for her symptoms at this time. Review of Systems Review of Systems Constitutional: Denies fever or chills [] Eyes: Denies change in visual acuity, redness, or eye pain [] HENT: Denies nasal congestion or sore throat [] Respiratory: Denies cough or shortness of breath [] Cardiovascular: Denies chest pain or edema[] GI: Abdominal pain, denies nausea, vomiting, bloody stools or diarrhea [] : Denies dysuria or hematuria [] Musculoskeletal: Denies back pain or joint pain [] Integument: Denies rash or skin lesions [] Neurologic: Denies headache, focal weakness or sensory changes [] All other systems were reviewed and found to be within normal limits, except as documented in this note. Current Medications Current Medications Current Medications Medications (Trade) Dose Ordered Sig/Dayna Start Time Stop Time Status Last Admin Dose Admin Fentanyl Citrate (Fentanyl 2ml Vial) 50 mcg PRN Q15MIN PRN 10/20/17 20:15 10/21/17 20:14 UNV Ketorolac Tromethamine (Toradol 30mg Vial) 30 mg 1X ONCE 10/20/17 20:15 10/20/17 20:16 UNV Ondansetron HCl (Zofran) 4 mg 1X ONCE 10/20/17 20:15 10/20/17 20:16 UNV Sodium Chloride 1,000 ml @ 1,000 mls/hr Q1H 10/20/17 20:09 10/20/17 21:08 UNV Allergies Allergies Allergies Coded Allergies Type Severity Reaction Last Updated Verified No Known Drug Allergies 03/30/17 No Physical Exam Physical Exam Constitutional: Alert, afebrile, appears in moderate discomfort. [] HENT: Normocephalic, atraumatic, bilateral external ears normal, oropharynx moist, no oral exudates, nose normal. [] Eyes: PERRLA, EOMI, conjunctiva normal, no discharge. [] Neck: Normal range of motion, no tenderness, supple, no stridor. [] Cardiovascular:Heart rate regular rhythm, no murmur [] Lungs & Thorax: Bilateral breath sounds clear to auscultation [] Abdomen: Bowel sounds normal, soft, left lower quadrant tenderness to palpation with guarding, no rebound tenderness, no masses, no pulsatile masses. [] Skin: Warm, dry, no erythema, no rash. [] Back: No tenderness, no CVA tenderness. [] Extremities: No tenderness, no cyanosis, no clubbing, ROM intact, no edema. [] Neurologic: Alert and oriented X 3, normal motor function, normal sensory function, no focal deficits noted. [] Current Patient Data Vital Signs Vital Signs Date Time Temp Pulse Resp B/P (MAP) Pulse Ox O2 Delivery O2 Flow Rate FiO2 10/20/17 19:34 98.0 67 18 99 Room Air Lab Results Laboratory Tests Test 10/20/17 19:14 POC Urine HCG, Qualitative hcg negative (Negative) EKG EKG Not performed[] Radiology/Procedures Radiology/Procedures Not performed[] Course & Med Decision Making Course & Med Decision Making Pertinent Labs and Imaging studies reviewed. (See chart for details) The patient's lab work is unremarkable this time. Patient treated with Toradol, Bentyl, and Zofran as well as IV fluids. Patient states that she feels better at this time and appears more comfortable. Given patient's history of recurrent abdominal pain and history of multiple CT scans, I'm hesitant to do a CT study nor do I feel it warranted at this time. Patient's symptoms do not appear consistent with an acute abdomen. Patient will be treated with ibuprofen, Tylenol, and recommended follow-up in the next 2 days with primary doctor for reevaluation. Advised return to emergency department for any worsening symptoms. Patient was understanding and agreement with treatment plan. Dragon Disclaimer Dragon Disclaimer This electronic medical record was generated, in whole or in part, using a voice recognition dictation system. Departure Departure: Impression: Primary Impression: Abdominal pain Additional Impression: History of ovarian cyst Disposition: HOME, SELF-CARE Condition: IMPROVED Referrals: LESLIE NASCIMENTO DO (PCP) Patient Instructions: Abdominal Pain (Nonspecific) Additional Instructions: Below his be contact information for Dr. Morillo of [facility]. It is recommend that you call to schedule a follow-up visit in the next 1-2 weeks. Follow up with her primary doctor in the next 2 days for reevaluation. Return to emergency department for any worsening symptoms. Toney Morillo Jr, MD [facility], [place] [address] Scripts Ibuprofen (IBUPROFEN) 600 Mg Tablet 600 MG PO Q6HRS PRN for PAIN, #30 TAB Prov: SWEETIE CARDOZA MD 10/20/17 Problem Qualifiers Primary Impression: Abdominal pain Abdominal location: lower abdomen, unspecified Qualified Codes: R10.30 - Lower abdominal pain, unspecified SWEETIE CARDOZA MD Oct 20, 2017 20:14
[2017-10-20 20:22] LABS: AMORPHOUS SEDIMENT,UR PRESENT /HPF; BACTERIA,URINE 0 /HPF (0-FEW); BILIRUBIN,URINE NEG (NEG); CLARITY,URINE CLEAR; COLOR,URINE YELLOW; GLUCOSE,URINE NEG (NEG); NITRITE,URINE NEG (NEG); RBC,URINE 0 /HPF (0-2); SQUAMOUS EPITHELIAL CELL,UR OCC /LPF; UROBILINOGEN,URINE 0.2 mg/dL (0.2 mg/dL); WBC,URINE 0 /HPF (0-4)
[2017-10-20] MEDS ORDERED: KETOROLAC 30 MG/ML VIAL. IV ONE (20:30)
[2017-10-20] MEDS ORDERED: ONDANSETRON PF 4 MG/2 ML VIAL. IV ONE (20:30)
[2017-10-20 20:52] LABS: BASO % 1 % (0-3); EOS # 0.1 x10^3/uL (0.0-0.7); EOS % 1 % (0-3); HEMATOCRIT 40.6 % (36.0-47.0); HEMOGLOBIN 14.4 g/dL (12.0-15.5); LYMPH # 2.9 x10^3/uL (1.0-4.8); LYMPH % 40 % (24-48); MEAN CORPUSCULAR HEMOGLOBIN 36 pg (25-35); MEAN CORPUSCULAR HGB CONC 36 g/dL (31-37); MEAN CORPUSCULAR VOLUME 101 fL (79-100); MONO # 0.5 x10^3/uL (0.0-1.1); MONO % 8 % (0-9); NEUT # 3.6 x10^3uL (1.8-7.7); NEUT % 50 % (31-73); PLATELET COUNT 200 x10^3/uL (140-400); RED BLOOD COUNT 4.04 x10^6/uL (3.50-5.40); WHITE BLOOD COUNT 7.1 x10^3/uL (4.0-11.0)
[2017-10-20 21:06] LABS: ALBUMIN 3.5 g/dL (3.4-5.0); ALBUMIN/GLOBULIN RATIO 1.1 (1.0-1.7); CALCIUM 8.7 mg/dL (8.5-10.1); CREATININE 0.7 mg/dL (0.6-1.0); GFR 96.4; POTASSIUM 4.1 mmol/L (3.5-5.1); TOTAL BILIRUBIN 0.3 mg/dL (0.2-1.0); TOTAL PROTEIN 6.7 g/dL (6.4-8.2)
[2017-10-20] MEDS ORDERED: IBUP600T16 PO (21:26)
[2017-10-20 21:36] VITALS: BP 133/89
== END 2017-10-20 21:38 | disposition home or self-care (01) ==
LOC: ER 19:21
DX: R10.32 Left lower quadrant pain (principal); J45.909 Unspecified asthma, uncomplicated; G43.909 Migraine, unspecified, not intractable, without status migrainosus; Z98.890 Other specified postprocedural states
CPT/HCPCS: 36415; 80053; 81001; 81025; 83690; 85025; 96374; 96375; 99284; J1885; J2405; J3010; J7030

== ENCOUNTER 2017-12-01 17:43 | Emergency (ER) | payer OTHER ==
[~2017-12-01] VITALS: Ht 162.6 cm; Wt 97.5 kg
[~2017-12-01 17:43] MED LIST changes: +IBUP600T16 PO
[2017-12-01 17:56] VITALS: BP 128/78
[2017-12-01] MEDS ORDERED: DEXAMETHASONE 4 MG TABLET PO ONE (18:30)
[2017-12-01] MEDS ORDERED: PRED20TA PO (18:34)
[2017-12-01] MEDS ORDERED: BENZ100C PO (18:34)
--- NOTE | 2017-12-01 18:34 | PHYS DOC ---
Past History Past Medical History: Anxiety, Asthma, Migraines, Ovarian Cyst Past Surgical History: Additional Past Surgical Histo: right ovarian removal for an ectopic Smoking: Non-smoker Alcohol Use: None Drug Use: None Adult General Chief Complaint Chief Complaint: SORE THROAT HPI HPI Patient is a 32 year-old female who presents to the ED with sore throat, cough, and congestion. She states her symptoms began 4 days ago and have been progressively getting worse. She also endorses ear pain (R>L), sinus pressure, headache and yellow sputum production. She denies any fevers or chills. She states she has been taking Zicam, ibuprofen, and Tylenol, but they have only been helping minimally. Denies . Review of Systems Review of Systems Constitutional: Denies fever or chills Eyes: Denies change in visual acuity, redness, or eye pain HENT: Notes nasal congestion and sore throat Respiratory: Notes cough; Denies shortness of breath Cardiovascular: Denies chest pain or heart palpitations GI: Denies abdominal pain, nausea, vomiting, bloody stools or diarrhea : Denies dysuria or hematuria Musculoskeletal: Denies back pain or joint pain Integument: Notes dark purple skin "spot" above left clavicle Neurologic: Notes headache; Denies focal weakness or sensory changes Complete systems were reviewed and found to be within normal limits, except as documented in this note. Family History Family History Noncontributory Current Medications Current Medications Current Medications Medications (Trade) Dose Ordered Sig/Dayna Start Time Stop Time Status Last Admin Dose Admin Dexamethasone (Decadron) 10 mg 1X ONCE 12/01/17 18:30 12/01/17 18:31 Home meds: Alprazolam, Fioricet Allergies Allergies Allergies Coded Allergies Type Severity Reaction Last Updated Verified No Known Drug Allergies 03/30/17 No Physical Exam Physical Exam Constitutional: Well developed, well nourished, no acute distress HENT: Normocephalic, atraumatic, oropharynx moist, tympanic membranes slightly erythematous, nasal turbinates slightly boggy, pharynx with irritation and post nasal drip Eyes: PERRL, EOMI, conjunctiva normal, no discharge Neck: Normal range of motion, no tenderness, supple Cardiovascular: Heart rate regular rhythm, no murmur Lungs & Thorax: Bilateral breath sounds clear to auscultation Abdomen: Soft, nontender Skin: Warm, dry, no erythema, no rash, small 0.5cm purple hued left to base of left neck, appears similar to broken capillaries under skin, nonraised, nontender Back: No tenderness, no CVA tenderness Extremities: No tenderness, ROM intact, no edema Neurologic: Alert and oriented X 3, normal motor function, normal sensory function, no focal deficits noted Psychologic: Affect normal, judgement normal, mood normal Current Patient Data Vital Signs Vital Signs Date Time Temp Pulse Resp B/P (MAP) Pulse Ox O2 Delivery O2 Flow Rate FiO2 12/01/17 17:56 98.4 63 18 98 Room Air EKG EKG [] Radiology/Procedures Radiology/Procedures [] Course & Med Decision Making Course & Med Decision Making Patient is a 32 year-old female who presents to the ED with sore throat, cough, and congestion for the past 4 days. States Zicam, Tylenol, and ibuprofen have not been helping. Discussed viral vs. bacterial etiology. Patient's presentation is likely of viral etiology. Patient was given a one-time dose of dexamethasone. Provided with a prescription for prednisone and benzonatate for cough. Patient stable for discharge with outpatient follow-up with PCP. Discussed findings and plan with patient who acknowledges understanding and agreement. Dragon Disclaimer Dragon Disclaimer This electronic medical record was generated, in whole or in part, using a voice recognition dictation system. Departure Departure: Impression: Primary Impression: Acute URI Disposition: 01 HOME, SELF-CARE Condition: STABLE Referrals: LESLIE NASCIMENTO DO (PCP) Patient Instructions: Upper Respiratory Infection, Adult, [id number] Scripts Benzonatate (TESSALON PERLE) 100 Mg Capsule 1 CAP PO TID PRN for COUGH, #20 CAP Prov: KESHIA AG DO 12/01/17 Prednisone (PREDNISONE) 20 Mg Tablet 1 TAB PO BID, #8 TAB Please start on 12/02/17 Prov: KESHIA AG DO 12/01/17 KESHIA AG DO Dec 01, 2017 18:34
== END 2017-12-01 18:46 | disposition home or self-care (01) ==
LOC: ER 17:43
DX: J06.9 Acute upper respiratory infection, unspecified (principal); J45.909 Unspecified asthma, uncomplicated; G43.909 Migraine, unspecified, not intractable, without status migrainosus
CPT/HCPCS: 99283; J8540

== ENCOUNTER 2018-08-09 15:37 | Emergency (ER) | payer OTHER ==
[~2018-08-09] VITALS: Ht 162.6 cm; Wt 111.1 kg
[~2018-08-09 15:37] MED LIST changes: +ALBU2.5V8 INH; -ALBU8.5H8 INH; +BENZ100C PO; +HYDR-3165 PO; -HYDR-971 PO; +PRED20TA PO
[2018-08-09 15:40] VITALS: BP 147/94
[2018-08-09] MEDS ORDERED: IV NORMAL SALINE 1,000ML 1,000 ML IV SCH (16:17)
[2018-08-09] MEDS ORDERED: HYOSCYAMINE 0.125 MG TAB.RAPDIS PO ONE (16:30)
[2018-08-09] MEDS ORDERED: KETOROLAC 30 MG/ML VIAL. IV ONE (16:30)
[2018-08-09] MEDS ORDERED: PROCHLORPERAZINE 10 MG/2 ML VIAL. IV ONE (16:30)
[2018-08-09] MEDS ORDERED: AMOX1TAB61 PO (16:41)
[2018-08-09] MEDS ORDERED: MELO7.5T29 PO ×2 (16:41→17:44)
--- NOTE | 2018-08-09 16:41 | PHYS DOC ---
Past History Past Medical History: Anxiety, Asthma, Migraines, Ovarian Cyst Past Surgical History: , Other Additional Past Surgical Histo: right ovarian removal for an ectopic Smoking: Non-smoker Alcohol Use: None Drug Use: Marijuana Adult General Chief Complaint Chief Complaint: ABDOMINAL PAIN HPI HPI Patient is a 32-year-old female presents complaining of upper abdominal to left sided pain that radiates around to her left flank and back. This is been present for the past week and a half and has been getting worse over time. No improvement with antacids. Mild improvement with ibuprofen but getting worse over time. No nausea or vomiting. Worse with movement and laying on her left side. Improved with laying on her right side.. No fever. Not like her previous ovarian cysts. Symptoms are moderate to severe.[] Review of Systems Review of Systems Constitutional: Denies fever or chills [] Eyes: Denies change in visual acuity, redness, or eye pain [] HENT: Denies nasal congestion or sore throat [] Respiratory: Denies cough or shortness of breath [] Cardiovascular: No chest pain or palpitations[] GI: See history of present illness[] : Denies dysuria or hematuria [] Musculoskeletal: Denies back pain or joint pain [] Integument: Denies rash or skin lesions [] Neurologic: Denies headache, focal weakness or sensory changes [] Endocrine: Denies polyuria or polydipsia [] All other systems were reviewed and found to be within normal limits, except as documented in this note. Allergies Allergies Allergies Coded Allergies Type Severity Reaction Last Updated Verified No Known Drug Allergies 03/30/17 No Physical Exam Physical Exam Constitutional: Well developed, well nourished, no acute distress, non-toxic appearance. [] HENT: Normocephalic, atraumatic, bilateral external ears normal, oropharynx moist, no oral exudates, nose normal. [] Eyes: PERRLA, EOMI, conjunctiva normal, no discharge. [] Neck: Normal range of motion, no tenderness, supple, no stridor. [] Cardiovascular:Heart rate regular rhythm, no murmur [] Lungs & Thorax: Bilateral breath sounds clear to auscultation [] Abdomen: Bowel sounds normal, soft, left-sided abdominal tenderness in the upper quadrant to palpation. Able to sit up and lay back without any significant difficulty. No rebound, no guarding, no rigidity. no masses, no pulsatile masses. [] Skin: Warm, dry, no erythema, no rash. [] Back: No tenderness, no CVA tenderness. [] Extremities: No tenderness, no cyanosis, no clubbing, ROM intact, no edema. [] Neurologic: Alert and oriented X 3, normal motor function, normal sensory function, no focal deficits noted. [] Psychologic: Affect normal, judgement normal, mood normal. [] Current Patient Data Vital Signs Vital Signs Date Time Temp Pulse Resp B/P (MAP) Pulse Ox O2 Delivery O2 Flow Rate FiO2 08/09/18 15:40 98.4 65 22 98 Room Air EKG EKG [] Radiology/Procedures Radiology/Procedures EXAM: CT Abdomen and Pelvis without IV contrast CLINICAL HISTORY: Left-sided abdominal pain COMPARISON: 08/11/17 TECHNIQUE: Helical CT of the abdomen and pelvis without intravenous contrast. Axial, coronal and sagittal reformatted images were generated. PQRS compliance statement - One or more of the following individualized dose reduction techniques were utilized for this study: 1. Automated exposure control 2. Adjustment of the mA and/or kV according to patient size 3. Use of iterative reconstruction technique FINDINGS: Lack of intravenous contrast limits evaluation of solid organs, vasculature, and lymph nodes. Lower chest: Lung bases are clear. Abdomen and Pelvis: No focal liver lesion. Liver measures approximately 18.5 cm in length. Relative hepatic hypoattenuation may be seen with hepatic steatosis, with focal fatty sparing in the region of the gallbladder fossa. Spleen is unremarkable. Adrenal glands are normal. Pancreas is unremarkable. Kidneys are normal in size and shape. No renal tract calculus. No hydronephrosis. No hydroureter. Bladder is grossly unremarkable. Moderate colonic stool content is seen. Appendix is normal. No small or large bowel dilatation to suggest bowel obstruction. Uterus and adnexa are grossly unremarkable. Small fat-containing periumbilical hernia is seen. Aorta is normal in caliber. A few prominent vessels are seen in the left upper quadrant, possibly collaterals or ectatic splenic vein. No abdominal or pelvic lymphadenopathy by size criteria. No axillary lymphadenopathy. No abdominal ascites. Trace free pelvic fluid may be physiologic. Bones: Sclerotic foci within the pelvis and the right lesser trochanter may represent bone islands. Degenerative changes of spine are seen. IMPRESSION: 1. No renal tract calculus. No hydronephrosis. 2. Hepatic steatosis and mild hepatomegaly. 3. Prominent vessels in the left upper quadrant/splenic hilum, collaterals or tortuous splenic vein. 4. Small fat-containing periumbilical hernia. [] Course & Med Decision Making Course & Med Decision Making Pertinent Labs and Imaging studies reviewed. (See chart for details) ED course: Patient arrived, was placed in bed, and tolerated exam well. She was transported to and from radiology with any complications. She had some relief of her discomfort with the medications administered. After the return of the laboratory and imaging findings, these were discussed with the patient who voiced understanding. All questions were answered. She was discharged in improved condition. Medical decision making: There is no evidence of surgical pathology accounting for this discomfort at this time. No evidence of urinary tract infection, kidney stone, pyelonephritis, pancreatitis.[] Dragon Disclaimer Dragon Disclaimer This electronic medical record was generated, in whole or in part, using a voice recognition dictation system. Departure Departure: Impression: Primary Impression: Abdominal pain Disposition: HOME, SELF-CARE Condition: IMPROVED Referrals: LESLIE NASCIMENTO DO (PCP) Follow-up in 2 days Patient Instructions: Abdominal Pain Additional Instructions: Follow-up with your regular doctor in 2 days for a wound check. Take the medication as prescribed. Return to the ER if worsening pain, purulent drainage, or any other concerns. Scripts Metoclopramide Hcl (REGLAN) 10 Mg Tablet 10 MG PO QID for nausea and vomiting, #30 TAB Prov: FRANCOIS ORELLANA DO 08/09/18 Meloxicam (MELOXICAM) 7.5 Mg Tablet 7.5 MG PO DAILY for PAIN, #20 TAB Prov: FRANCOIS ORELLANA DO 08/09/18 Hyoscyamine Sulfate (LEVSIN) 0.125 Mg Tablet 0.125 MG PO QID for abdominal pain/cramping, #30 TAB Prov: FRANCOIS ORELLANA DO 08/09/18 Meloxicam (MELOXICAM) 7.5 Mg Tablet 7.5 MG PO DAILY for PAIN, #20 TAB Prov: FRANCOIS ORELLANA DO 08/09/18 Amoxicillin/Potassium Clav (AUGMENTIN 875-125 TABLET) 1 Each Tablet 1 TAB PO BID for dog bite, #14 TAB Prov: FRANCOIS ORELLANA DO 08/09/18 Problem Qualifiers Primary Impression: Abdominal pain Abdominal location: left upper quadrant Qualified Codes: R10.12 - Left upper quadrant pain FRANCOIS ORELLANA DO Aug 09, 2018 16:41
--- NOTE | 2018-08-09 17:04 | RAD ---
EXAM: CT Abdomen and Pelvis without IV contrast CLINICAL HISTORY: Left-sided abdominal pain COMPARISON: 08/11/17 TECHNIQUE: Helical CT of the abdomen and pelvis without intravenous contrast. Axial, coronal and sagittal reformatted images were generated. PQRS compliance statement - One or more of the following individualized dose reduction techniques were utilized for this study: 1. Automated exposure control 2. Adjustment of the mA and/or kV according to patient size 3. Use of iterative reconstruction technique FINDINGS: Lack of intravenous contrast limits evaluation of solid organs, vasculature, and lymph nodes. Lower chest: Lung bases are clear. Abdomen and Pelvis: No focal liver lesion. Liver measures approximately 18.5 cm in length. Relative hepatic hypoattenuation may be seen with hepatic steatosis, with focal fatty sparing in the region of the gallbladder fossa. Spleen is unremarkable. Adrenal glands are normal. Pancreas is unremarkable. Kidneys are normal in size and shape. No renal tract calculus. No hydronephrosis. No hydroureter. Bladder is grossly unremarkable. Moderate colonic stool content is seen. Appendix is normal. No small or large bowel dilatation to suggest bowel obstruction. Uterus and adnexa are grossly unremarkable. Small fat-containing periumbilical hernia is seen. Aorta is normal in caliber. A few prominent vessels are seen in the left upper quadrant, possibly collaterals or ectatic splenic vein. No abdominal or pelvic lymphadenopathy by size criteria. No axillary lymphadenopathy. No abdominal ascites. Trace free pelvic fluid may be physiologic. Bones: Sclerotic foci within the pelvis and the right lesser trochanter may represent bone islands. Degenerative changes of spine are seen. IMPRESSION: 1. No renal tract calculus. No hydronephrosis. 2. Hepatic steatosis and mild hepatomegaly. 3. Prominent vessels in the left upper quadrant/splenic hilum, collaterals or tortuous splenic vein. 4. Small fat-containing periumbilical hernia. Electronically signed by: Osbaldo Mckeon MD (08/09/2018 5:01 PM) [id number]
[2018-08-09 17:10] LABS: ALBUMIN 3.8 g/dL (3.4-5.0); ALBUMIN/GLOBULIN RATIO 1.2 (1.0-1.7); CREATININE 0.6 mg/dL (0.6-1.0); GFR 115.1; POTASSIUM 3.8 mmol/L (3.5-5.1); TOTAL BILIRUBIN 0.5 mg/dL (0.2-1.0)
[2018-08-09 17:11] LABS: BASO % 0 % (0-3); EOS # 0.1 x10^3/uL (0.0-0.7); EOS % 1 % (0-3); HEMOGLOBIN 14.7 g/dL (12.0-15.5); LYMPH % 31 % (24-48); MEAN CORPUSCULAR HEMOGLOBIN 36 pg (25-35); MEAN CORPUSCULAR HGB CONC 35 g/dL (31-37); MEAN CORPUSCULAR VOLUME 102 fL (79-100); MONO # 0.5 x10^3/uL (0.0-1.1); MONO % 8 % (0-9); NEUT # 3.9 x10^3uL (1.8-7.7); NEUT % 60 % (31-73); PLATELET COUNT 205 x10^3/uL (140-400); RED BLOOD COUNT 4.13 x10^6/uL (3.50-5.40); RED CELL DISTRIBUTION WIDTH 12.2 % (11.5-14.5); WHITE BLOOD COUNT 6.5 x10^3/uL (4.0-11.0)
[2018-08-09 17:28] LABS: BACTERIA,URINE 0 /HPF (0-FEW); BILIRUBIN,URINE NEG (NEG); CLARITY,URINE HAZY; COLOR,URINE AMBER; GLUCOSE,URINE NEG (NEG); NITRITE,URINE NEG (NEG); RBC,URINE 0 /HPF (0-2); SQUAMOUS EPITHELIAL CELL,UR OCC /LPF; UROBILINOGEN,URINE 0.2 mg/dL (0.2 mg/dL); WBC,URINE 0 /HPF (0-4)
[2018-08-09 17:37] LABS: BARBITURATES NEG (NEG); BENZODIAZEPINES NEG (NEG); CANNABINOIDS POS (NEG); COCAINE NEG (NEG); METHADONE NEG (NEG); OPIATES NEG (NEG); PHENCYCLIDINE NEG (NEG)
[2018-08-09 17:38] LABS: AMPHETAMINE/METHAMPHETAMINE NEG (NEG)
[2018-08-09] MEDS ORDERED: HYOS0.1264 PO (17:44)
[2018-08-09] MEDS ORDERED: METO10TA81 PO (17:44)
== END 2018-08-09 19:38 | disposition home or self-care (01) ==
LOC: ER 15:37
DX: R10.12 Left upper quadrant pain (principal); K76.0 Fatty (change of) liver, not elsewhere classified; K42.9 Umbilical hernia without obstruction or gangrene; I86.8 Varicose veins of other specified sites; F41.9 Anxiety disorder, unspecified; J45.909 Unspecified asthma, uncomplicated; G43.909 Migraine, unspecified, not intractable, without status migrainosus
CPT/HCPCS: 36415; 74176; 80053; 80307; 81001; 81025; 83690; 85025; 96374; 96375; 99285; J0780; J1885; J7030

== ENCOUNTER 2018-10-19 14:37 | Emergency (ER) | payer OTHER ==
[~2018-10-19] VITALS: Ht 162.6 cm; Wt 111.1 kg
[~2018-10-19 14:37] MED LIST changes: +AMOX1TAB61 PO; +HYOS0.1264 PO; +MELO7.5T29 PO; +METO10TA81 PO
[2018-10-19] MEDS ORDERED: IV NORMAL SALINE 1,000ML 1,000 ML IV ONE (15:00)
--- NOTE | 2018-10-19 15:08 | PHYS DOC ---
Past History Past Medical History: Anxiety, Asthma, Migraines, Ovarian Cyst Past Surgical History: , Other Additional Past Surgical Histo: right ovarian removal for an ectopic Smoking: Non-smoker Alcohol Use: None Drug Use: Marijuana Adult General Chief Complaint Chief Complaint: VAGINAL BLEEDING [facility] The patient is a pleasant 33-year-old female who presents for evaluation of vaginal bleeding, left lower quadrant abdominal soreness and left flank discomfort. She states her last period was approximately 1 month ago. She states that she took. She does 3 days ago and it was negative. She says she has had ovarian cysts in the problem which of cause similar symptoms. 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 She has an appointment with them on Wednesday. She says over the last 3 days or so the bleeding is been quite heavy compared to what she is used to however in the last hour or so it seems like the bleeding is stopping. She reports a history of next and had her right flubbing tube removed. She is alert and oriented �4, calm, and appears to be in no distress. She denies fevers or chills, diarrhea, vomiting, chest pain or shortness of breath, urinary complaints, or syncope. Review of Systems Review of Systems Constitutional: Denies fever or chills [] Eyes: Denies change in visual acuity, redness, or eye pain [] HENT: Denies nasal congestion or sore throat [] Respiratory: Denies cough or shortness of breath [] Cardiovascular: No additional information not addressed in HPI [] GI: Denies nausea, vomiting, bloody stools or diarrhea [] +LLQ abd pain, Left flank pain : Denies dysuria or hematuria [] vaginal bleeding Musculoskeletal: Denies back pain or joint pain [] Integument: Denies rash or skin lesions [] Neurologic: Denies headache, focal weakness or sensory changes [] Endocrine: Denies polyuria or polydipsia [] All other systems were reviewed and found to be within normal limits, except as documented in this note. Current Medications Current Medications Current Medications Medications (Trade) Dose Ordered Sig/Dayna Start Time Stop Time Status Last Admin Dose Admin Sodium Chloride 1,000 ml @ 1,000 mls/hr 1X ONCE 10/19/18 15:00 10/19/18 15:59 Allergies Allergies Allergies Coded Allergies Type Severity Reaction Last Updated Verified No Known Drug Allergies 03/30/17 No Physical Exam Physical Exam Constitutional: Well developed, well nourished, no acute distress, non-toxic appearance. [] obese, calm HENT: Normocephalic, atraumatic, bilateral external ears normal, oropharynx moist, no oral exudates, nose normal. [] Eyes: PERRLA, EOMI, conjunctiva normal, no discharge. [] Neck: Normal range of motion, no tenderness, supple, no stridor. [] Cardiovascular:Heart rate regular rhythm, no murmur [] Lungs & Thorax: Bilateral breath sounds clear to auscultation [] Abdomen: Bowel sounds normal, soft, no masses, no pulsatile masses. [] mild LLQ abd ttp, soft, no distention Skin: Warm, dry, no erythema, no rash. [] Back: No tenderness, no CVA tenderness. [] Extremities: No tenderness, no cyanosis, no clubbing, ROM intact, no edema. [] Neurologic: Alert and oriented X 3, normal motor function, normal sensory function, no focal deficits noted. [] Psychologic: Affect normal, judgement normal, mood normal. [] Current Patient Data Vital Signs Vital Signs Date Time Temp Pulse Resp B/P (MAP) Pulse Ox O2 Delivery O2 Flow Rate FiO2 10/19/18 14:52 98.2 72 18 98 Room Air EKG EKG [] Radiology/Procedures Radiology/Procedures [address] [address] IMAGING REPORT Signed PATIENT: MINDI GARCIA ACCOUNT: [id number] : 1985 LOCATION: ER AGE: 33 SEX: F EXAM STATUS: REG ER ORD. PHYSICIAN: TREMAINE CALDERA DO REASON: left flank pain, vaginal bleeding, LLQ pain, h/o ovarian cysts PROCEDURE: CT ABDOMEN PELVIS WO CONTRAST Study: CT abdomen and pelvis without contrast Indication: Left flank pain. Vaginal bleeding. Left lower quadrant pain. Comparison: Most recent comparison from 08/09/2018. Technique: Helical CT imaging performed of the abdomen and pelvis without the use of intravenous contrast. Sagittal and coronal reformats were obtained. Findings: Unchanged ill-defined millimetric nodule at the posterior aspect of the right lower lobe, image 14 series 2. The liver, gallbladder, pancreas, spleen, adrenal glands and kidneys are unchanged. The urinary bladder is mostly collapsed. Within normal limits appearance of the ovaries and uterus given patient age. Unremarkable stomach, small bowel, colon and appendix. No free fluid or air. No mesenteric or pelvic adenopathy. Unremarkable body wall soft tissues. No newly seen osseous abnormality. Unchanged osseous structures with scattered tortuous vessels redemonstrated at the left upper quadrant. Impression: No acute abnormality throughout the abdomen or pelvis. No significant interval change from the August 09, 2018 comparison. Electronically signed by: JONN MANJARREZ MD (10/19/2018 3:47 PM) [id number] DICTATED AND SIGNED BY: JONN MANJARREZ MD DATE: 10/19/18 1547 CC: TREMAINE CALDERA DO; LESLIE NASCIMENTO DO ~ [place] [address] IMAGING REPORT Signed PATIENT: MINDI GARCIA ACCOUNT: [id number] : 1985 LOCATION: ER AGE: 33 SEX: F EXAM STATUS: REG ER ORD. PHYSICIAN: TREMAINE CALDERA DO REASON: left adnexal pain PROCEDURE: US PELVIS W/TV STUDY: Ultrasound of the pelvis INDICATION: Left adnexal pain. COMPARISON: Same day CT abdomen/pelvis. Pelvic sonogram 08/11/2017. TECHNIQUE: Real-time grayscale and color Doppler imaging of the pelvis utilizing both transabdominal and transvaginal technique. FINDINGS: The uterus measures 8.9 x 5.2 x 5 cm. The endometrium measures approximately 0.4 cm in thickness. Scattered nabothian cysts with the largest measuring up to 0.9 cm. The right ovary is not visualized. The left ovary measures 4.5 x 3.1 x 2.8 cm with maintained Doppler flow. Small avascular cyst measuring 2.3 x 1.5 x 2.3 cm. No free fluid seen within the pelvis. IMPRESSION: 1. Within normal limits appearance of the uterus and endometrium given patient age. 2. The right ovary is not visualized. The left ovary maintains normal Doppler flow and exhibits an avascular, simple appearing cyst measuring 2.3 x 2.3 x 1.5 cm. Electronically signed by: JONN MANJARREZ MD (10/19/2018 4:26 PM) [id number] DICTATED AND SIGNED BY: JONN MANJARREZ MD DATE: 10/19/18 1803 CC: TREMAINE CALDERA DO; LESLIE NASCIMENTO DO ~ Course & Med Decision Making Course & Med Decision Making Pertinent Labs and Imaging studies reviewed. (See chart for details) @1625 - patient updated on lab results. She declines pelvic examination. She states the bleeding is leading up and she is feeling better. Awaiting pelvic ultrasound. @1658 - Patient updated on ultrasound results which are unremarkable. Patient again declines pelvic examination at this time. She states she is feeling better and wants to go home. She denies any worsening bleeding and states this just could be a bad a heavy menstrual cycle. The rest patient to return to the emergency Department immediately for new or worsening symptoms, to drink plenty of water, and to keep her appointment which she previously scheduled with her electric truck operator. She expresses verbal understanding and agreement with the plan and is stable for discharge. Dragon Disclaimer Dragon Disclaimer This electronic medical record was generated, in whole or in part, using a voice recognition dictation system. Departure Departure: Impression: Primary Impression: Vaginal bleeding Disposition: 01 HOME, SELF-CARE Condition: STABLE Referrals: LESLIE NASCIMENTO DO (PCP) Patient Instructions: Abdominal Pain, Uterine Bleeding, Dysfunctional Additional Instructions: Drink plenty of fluids at home. Take ibuprofen for pain relief as needed. Keep the appointment with your oncologist and return to the emergency Department immediately for new or worsening symptoms. TREMAINE CALDERA DO Oct 19, 2018 15:08
[2018-10-19 15:25] LABS: BASO # 0.1 x10^3/uL (0.0-0.2); BASO % 2 % (0-3); EOS # 0.1 x10^3/uL (0.0-0.7); EOS % 1 % (0-3); HEMATOCRIT 39.8 % (36.0-47.0); LYMPH % 31 % (24-48); MEAN CORPUSCULAR HEMOGLOBIN 37 pg (25-35); MEAN CORPUSCULAR HGB CONC 35 g/dL (31-37); MEAN CORPUSCULAR VOLUME 105 fL (79-100); MONO # 0.5 x10^3/uL (0.0-1.1); MONO % 7 % (0-9); NEUT # 3.9 x10^3uL (1.8-7.7); NEUT % 59 % (31-73); PLATELET COUNT 201 x10^3/uL (140-400); RED CELL DISTRIBUTION WIDTH 12.1 % (11.5-14.5); WHITE BLOOD COUNT 6.5 x10^3/uL (4.0-11.0)
[2018-10-19 15:38] LABS: ALBUMIN 3.9 g/dL (3.4-5.0); ALBUMIN/GLOBULIN RATIO 1.3 (1.0-1.7); BACTERIA,URINE MOD /HPF (0-FEW); BILIRUBIN,URINE SMALL (NEG); CALCIUM 8.9 mg/dL (8.5-10.1); CLARITY,URINE CLEAR; COLOR,URINE AMBER; CREATININE 0.6 mg/dL (0.6-1.0); GFR 114.4; GLUCOSE,URINE NEG (NEG); NITRITE,URINE NEG (NEG); POTASSIUM 4.2 mmol/L (3.5-5.1); RBC,URINE RARE /HPF (0-2); TOTAL BILIRUBIN 0.6 mg/dL (0.2-1.0); TOTAL PROTEIN 6.8 g/dL (6.4-8.2); UROBILINOGEN,URINE 4 mg/dL (0.2 mg/dL)
--- NOTE | 2018-10-19 15:49 | RAD ---
Study: CT abdomen and pelvis without contrast Indication: Left flank pain. Vaginal bleeding. Left lower quadrant pain. Comparison: Most recent comparison from 08/09/2018. Technique: Helical CT imaging performed of the abdomen and pelvis without the use of intravenous contrast. Sagittal and coronal reformats were obtained. Findings: Unchanged ill-defined millimetric nodule at the posterior aspect of the right lower lobe, image 14 series 2. The liver, gallbladder, pancreas, spleen, adrenal glands and kidneys are unchanged. The urinary bladder is mostly collapsed. Within normal limits appearance of the ovaries and uterus given patient age. Unremarkable stomach, small bowel, colon and appendix. No free fluid or air. No mesenteric or pelvic adenopathy. Unremarkable body wall soft tissues. No newly seen osseous abnormality. Unchanged osseous structures with scattered tortuous vessels redemonstrated at the left upper quadrant. Impression: No acute abnormality throughout the abdomen or pelvis. No significant interval change from the August 09, 2018 comparison. Electronically signed by: JONN MANJARREZ MD (10/19/2018 3:47 PM) [facility]
--- NOTE | 2018-10-19 16:29 | RAD ---
STUDY: Ultrasound of the pelvis INDICATION: Left adnexal pain. COMPARISON: Same day CT abdomen/pelvis. Pelvic sonogram 08/11/2017. TECHNIQUE: Real-time grayscale and color Doppler imaging of the pelvis utilizing both transabdominal and transvaginal technique. FINDINGS: The uterus measures 8.9 x 5.2 x 5 cm. The endometrium measures approximately 0.4 cm in thickness. Scattered nabothian cysts with the largest measuring up to 0.9 cm. The right ovary is not visualized. The left ovary measures 4.5 x 3.1 x 2.8 cm with maintained Doppler flow. Small avascular cyst measuring 2.3 x 1.5 x 2.3 cm. No free fluid seen within the pelvis. IMPRESSION: 1. Within normal limits appearance of the uterus and endometrium given patient age. 2. The right ovary is not visualized. The left ovary maintains normal Doppler flow and exhibits an avascular, simple appearing cyst measuring 2.3 x 2.3 x 1.5 cm. Electronically signed by: JONN MANJARREZ MD (10/19/2018 4:26 PM) [id number]
[2018-10-19 17:15] VITALS: BP 140/86
== END 2018-10-19 17:14 | disposition home or self-care (01) ==
LOC: ER 14:37
DX: N93.9 Abnormal uterine and vaginal bleeding, unspecified (principal); R10.32 Left lower quadrant pain; J45.909 Unspecified asthma, uncomplicated; G43.909 Migraine, unspecified, not intractable, without status migrainosus; Z98.890 Other specified postprocedural states
CPT/HCPCS: 36415; 74176; 76830; 76856; 80053; 81001; 81025; 85025; 87086; 99285-25; J7030

== ENCOUNTER 2018-11-18 08:30 | Emergency (ER) | payer OTHER ==
[~2018-11-18] VITALS: Ht 162.6 cm; Wt 101.8 kg
[2018-11-18 08:39] VITALS: BP 141/112
[2018-11-18] MEDS ORDERED: MELO7.5T29 PO (08:52)
[2018-11-18] MEDS ORDERED: SULF1TAB24 PO (08:52)
--- NOTE | 2018-11-18 08:53 | PHYS DOC ---
Past History Past Medical History: No Pertinent History Past Surgical History: , Other Additional Past Surgical Histo: ECTOPIC Smoking: Non-smoker Alcohol Use: None Drug Use: Marijuana Adult General Chief Complaint Chief Complaint: SKIN RASH/ABSCESS HPI HPI Patient is a 33-year-old female presents complaining of a boil and cellulitis on her left lower abdomen. This started 3-4 days ago and has been getting worse over time. She has had cellulitis previously when she had complications following right-sided ectopic surgery. She reports subjective chills, has not taken her temperature at home. Last dose of ibuprofen was yesterday. Mild purulent drainage from the area. No nausea or vomiting. Some generalized malaise is present.[] Review of Systems Review of Systems Constitutional: Denies fever, see history of present illness[] Eyes: Denies change in visual acuity, redness, or eye pain [] HENT: Denies nasal congestion or sore throat [] Respiratory: Denies cough or shortness of breath [] Cardiovascular: No chest pain or palpitations[] GI: Denies abdominal pain, nausea, vomiting, bloody stools or diarrhea [] : Denies dysuria or hematuria [] Musculoskeletal: Denies back pain or joint pain [] Integument: See history of present illness[] Neurologic: Denies headache, focal weakness or sensory changes [] Endocrine: Denies polyuria or polydipsia [] All other systems were reviewed and found to be within normal limits, except as documented in this note. Allergies Allergies Allergies Coded Allergies Type Severity Reaction Last Updated Verified No Known Drug Allergies 11/18/18 No Physical Exam Physical Exam Constitutional: Well developed, well nourished, no acute distress, non-toxic appearance. [] HENT: Normocephalic, atraumatic, bilateral external ears normal, oropharynx moist, no oral exudates, nose normal. [] Eyes: PERRLA, EOMI, conjunctiva normal, no discharge. [] Neck: Normal range of motion, no tenderness, supple, no stridor. [] Cardiovascular:Heart rate regular rhythm, no murmur [] Lungs & Thorax: Bilateral breath sounds clear to auscultation [] Abdomen: Bowel sounds normal, soft, no tenderness, no masses, no pulsatile masses. [] Skin: Warm, dry, no rash. Erythema left lower abdomen 10 x 4 cm, longest in the transverse direction. There is an infected hair follicle draining clear fluid at this time at the center of this region, no purulent drainage, there is no evidence of an abscess. [] Back: No tenderness, no CVA tenderness. [] Extremities: No tenderness, no cyanosis, no clubbing, ROM intact, no edema. [] Neurologic: Alert and oriented X 3, normal motor function, normal sensory function, no focal deficits noted. [] Psychologic: Affect normal, judgement normal, mood normal. [] Current Patient Data Vital Signs Vital Signs Date Time Temp Pulse Resp B/P (MAP) Pulse Ox O2 Delivery O2 Flow Rate FiO2 11/18/18 08:39 98.2 71 18 99 Room Air EKG EKG [] Radiology/Procedures Radiology/Procedures [] Course & Med Decision Making Course & Med Decision Making Pertinent Labs and Imaging studies reviewed. (See chart for details) ED course: Patient arrived, was placed in bed, and tolerated exam well. Findings were discussed with the patient who voiced understanding. All questions were answered. She was discharged in improved condition. Medical decision making: Patient appears to have a cellulitis in the left lower quadrant of her abdomen. There is no evidence of an abscess. No evidence of systemic toxicity.[] Dragon Disclaimer Dragon Disclaimer This electronic medical record was generated, in whole or in part, using a voice recognition dictation system. Departure Departure: Impression: Primary Impression: Cellulitis Disposition: 01 HOME, SELF-CARE Condition: IMPROVED Referrals: LESLIE NASCIMENTO DO (PCP) Follow-up in 2 days Patient Instructions: Cellulitis Additional Instructions: Follow-up with your regular doctor in 2 days. Take the medication as prescribed. Apply warm compresses to the affected area for 15 minutes at a time, at least 4 times a day. Return to the ER if worsening pain, fever of more than 101�, or any other concerns. Scripts Meloxicam (MELOXICAM) 7.5 Mg Tablet 7.5 MG PO DAILY for PAIN, #20 TAB Prov: FRANCOIS ORELLANA DO 11/18/18 Sulfamethoxazole/Trimethoprim (BACTRIM DS TABLET) 1 Each Tablet 1 TAB PO BID for cellulitis, #20 TAB Prov: FRANCOIS ORELLANA DO 11/18/18 Problem Qualifiers Primary Impression: Cellulitis Site of cellulitis: trunk Site of cellulitis of trunk: abdominal wall Qualified Codes: L03.311 - Cellulitis of abdominal wall ESTEBANFRANCOIS DO Nov 18, 2018 08:53
== END 2018-11-18 08:57 | disposition home or self-care (01) ==
LOC: ER 08:30
DX: L03.311 Cellulitis of abdominal wall (principal); Z98.890 Other specified postprocedural states
CPT/HCPCS: 99283

== ENCOUNTER 2018-12-15 17:43 | Emergency (ER) | payer OTHER ==
[~2018-12-15] VITALS: Ht 162.6 cm; Wt 101.8 kg
[~2018-12-15 17:43] MED LIST changes: +SULF1TAB24 PO
[2018-12-15] MEDS ORDERED: KETOROLAC 15 MG/ML VIAL. IVP ONE (18:00)
[2018-12-15] MEDS ORDERED: IV NORMAL SALINE 1,000ML 1,000 ML IV ONE (18:00)
[2018-12-15] MEDS ORDERED: ONDANSETRON PF 4 MG/2 ML VIAL. IVP ONE ×2 (18:00→20:00)
[2018-12-15] MEDS ORDERED: FAMOTIDINE 20 MG/2 ML VIAL IVP ONE (18:00)
[2018-12-15 18:24] LABS: BASO # 0.1 x10^3/uL (0.0-0.2); BASO % 1 % (0-3); EOS % 0 % (0-3); HEMOGLOBIN 16.7 g/dL (12.0-15.5); LYMPH # 2.3 x10^3/uL (1.0-4.8); LYMPH % 21 % (24-48); MEAN CORPUSCULAR HEMOGLOBIN 36 pg (25-35); MEAN CORPUSCULAR HGB CONC 34 g/dL (31-37); MEAN CORPUSCULAR VOLUME 106 fL (79-100); MONO # 0.6 x10^3/uL (0.0-1.1); MONO % 6 % (0-9); NEUT # 7.7 x10^3uL (1.8-7.7); NEUT % 72 % (31-73); PLATELET COUNT 246 x10^3/uL (140-400); RED BLOOD COUNT 4.64 x10^6/uL (3.50-5.40); RED CELL DISTRIBUTION WIDTH 12.6 % (11.5-14.5); WHITE BLOOD COUNT 10.7 x10^3/uL (4.0-11.0)
[2018-12-15 18:38] LABS: ALBUMIN 4.1 g/dL (3.4-5.0); ALBUMIN/GLOBULIN RATIO 1.1 (1.0-1.7); CALCIUM 9.2 mg/dL (8.5-10.1); CREATININE 0.7 mg/dL (0.6-1.0); GFR 95.8; MAGNESIUM 2.1 mg/dL (1.8-2.4); POTASSIUM 3.8 mmol/L (3.5-5.1); TOTAL BILIRUBIN 0.6 mg/dL (0.2-1.0); TOTAL PROTEIN 7.8 g/dL (6.4-8.2)
--- NOTE | 2018-12-15 18:49 | PHYS DOC ---
Past History Past Medical History: Asthma Past Surgical History: , Other Additional Past Surgical Histo: ECTOPIC Smoking: Non-smoker Alcohol Use: None Drug Use: Marijuana Adult General Chief Complaint Chief Complaint: FLU SYMPTOM HPI HPI 33-year-old female presents with 3 day history of generalized malaise and weakness. Reports associated nausea and vomiting which started today. Patient reports unable to keep anything down. Reports she thinks she might have passed out. Denies fever or chills. Denies trauma. Denies known sick contacts. Reports she is uncertain regarding . Review of Systems Review of Systems Constitutional: Denies fever or chills; reports generalized malaise Eyes: Denies redness or eye pain HENT: Denies nasal congestion or sore throat Respiratory: Denies cough or shortness of breath Cardiovascular: Denies chest pain or palpitations GI: Reports nausea and vomiting : Denies dysuria or hematuria Musculoskeletal: Denies back pain or joint pain Integument: Denies rash or skin lesions Neurologic: Reports headache and dizziness with syncopal episode; denies focal weakness or sensory changes Complete systems were reviewed and found to be within normal limits, except as documented in this note. Current Medications Current Medications Current Medications Medications (Trade) Dose Ordered Sig/Dayna Start Time Stop Time Status Last Admin Dose Admin Famotidine (Pepcid Vial) 20 mg 1X ONCE 12/15/18 18:00 12/15/18 18:01 DC 12/15/18 18:00 20 MG Ketorolac Tromethamine (Toradol 15mg Vial) 15 mg 1X ONCE 12/15/18 18:00 12/15/18 18:01 DC 12/15/18 18:00 15 MG Ondansetron HCl (Zofran) 4 mg 1X ONCE 12/15/18 18:00 12/15/18 18:01 DC 12/15/18 18:00 4 MG Sodium Chloride 1,000 ml @ 1,000 mls/hr 1X ONCE 12/15/18 18:00 12/15/18 18:59 12/15/18 18:00 1,000 MLS/HR Allergies Allergies Allergies Coded Allergies Type Severity Reaction Last Updated Verified No Known Drug Allergies 11/18/18 No Physical Exam Physical Exam Constitutional: Well developed, well nourished, uncomfortable, ill but non-toxic appearance HENT: Normocephalic, atraumatic, oropharynx tacky Eyes: PERRL, EOMI, conjunctiva normal, no discharge Neck: Normal range of motion, no midline tenderness, supple Cardiovascular: Heart rate normal, regular rhythm Lungs & Thorax: Bilateral breath sounds clear to auscultation, no wheezing Abdomen: Soft, no tenderness, no guarding/rebound tenderness/distention Skin: Warm, dry, no erythema, no rash Back: No tenderness, no CVA tenderness Extremities: No tenderness, ROM intact, no edema Neurologic: Alert and oriented X 3, normal motor function, normal sensory function, no focal deficits noted Psychologic: Affect normal, judgement normal Current Patient Data Vital Signs Vital Signs Date Time Temp Pulse Resp B/P (MAP) Pulse Ox O2 Delivery O2 Flow Rate FiO2 12/15/18 17:54 152/95 (114) 12/15/18 17:50 97.7 57 16 100 Room Air Lab Results Laboratory Tests Test 12/15/18 18:00 White Blood Count 10.7 x10^3/uL (4.0-11.0) Red Blood Count 4.64 x10^6/uL (3.50-5.40) Hemoglobin 16.7 g/dL (12.0-15.5) H Hematocrit 49.0 % (36.0-47.0) H Mean Corpuscular Volume 106 fL (79-100) H Mean Corpuscular Hemoglobin 36 pg (25-35) H Mean Corpuscular Hemoglobin Concent 34 g/dL (31-37) Red Cell Distribution Width 12.6 % (11.5-14.5) Platelet Count 246 x10^3/uL (140-400) Neutrophils (%) (Auto) 72 % (31-73) Lymphocytes (%) (Auto) 21 % (24-48) L Monocytes (%) (Auto) 6 % (0-9) Eosinophils (%) (Auto) 0 % (0-3) Basophils (%) (Auto) 1 % (0-3) Neutrophils # (Auto) 7.7 x10^3uL (1.8-7.7) Lymphocytes # (Auto) 2.3 x10^3/uL (1.0-4.8) Monocytes # (Auto) 0.6 x10^3/uL (0.0-1.1) Eosinophils # (Auto) 0.0 x10^3/uL (0.0-0.7) Basophils # (Auto) 0.1 x10^3/uL (0.0-0.2) Sodium Level 143 mmol/L (136-145) Potassium Level 3.8 mmol/L (3.5-5.1) Chloride Level 106 mmol/L (98-107) Carbon Dioxide Level 25 mmol/L (21-32) Anion Gap 12 (6-14) Blood Urea Nitrogen 7 mg/dL (7-20) Creatinine 0.7 mg/dL (0.6-1.0) Estimated GFR (Cockcroft-Gault) 95.8 BUN/Creatinine Ratio 10 (6-20) Glucose Level 107 mg/dL (70-99) H Calcium Level 9.2 mg/dL (8.5-10.1) Magnesium Level 2.1 mg/dL (1.8-2.4) Total Bilirubin 0.6 mg/dL (0.2-1.0) Aspartate Amino Transferase (AST) 12 U/L (15-37) L Alanine Aminotransferase (ALT) 21 U/L (14-59) Alkaline Phosphatase 61 U/L (46-116) Total Protein 7.8 g/dL (6.4-8.2) Albumin 4.1 g/dL (3.4-5.0) Albumin/Globulin Ratio 1.1 (1.0-1.7) Lipase 84 U/L (73-393) EKG EKG @1807 Sinus bradycardia at 48bpm, NO ST elevation, QRS 78ms, QT/QTc 440/393ms Radiology/Procedures Radiology/Procedures PROCEDURE: CT HEAD WO CONTRAST CT head without contrast PQRS statement: CT scans at this facility use dose reduction including either automated exposure control, iterative reconstructions, and /or weight based radiation dosing via mA and kV modification when appropriate to reduce radiation dose to as low as reasonably achievable. HISTORY: Dizziness, syncope, fell and hit head. TECHNIQUE: Noncontrast imaging skull base to vertex was acquired. FINDINGS: No intracranial hemorrhage, mass, hydrocephalus, extra-axial fluid collections or infarction. No acute ischemic change. Mild mucosal thickening and fluid right sphenoid sinus extending outside the [id number]. Orbits, mastoids and bones are unremarkable. IMPRESSION: No acute intracranial CT abnormality. Mild fluid right sphenoid sinus could indicate sinusitis. Electronically signed by: Luis Whitehead MD (12/15/2018 7:24 PM) [facility] Course & Med Decision Making Course & Med Decision Making Pertinent Labs and Imaging studies reviewed. (See chart for details) Patient presents with generalized malaise with report of associated nausea and vomiting and reported syncopal episode. Abdomen non-peritoneal. Neurologically intact. Patient appears dehydrated. IV fluid hydration provided. Labs obtained and posted to chart. CT head without acute process. EKG stable. Symptomatic treatment provided with interval improvement of symptoms. Patient stable for discharge with outpatient follow-up with PCP. Discussed findings and plan with patient, who acknowledges understanding and agreement. Dragon Disclaimer Dragon Disclaimer This electronic medical record was generated, in whole or in part, using a voice recognition dictation system. Departure Departure: Impression: Primary Impression: Nausea and vomiting Additional Impressions: Syncope Dehydration Disposition: HOME, SELF-CARE Condition: IMPROVED Referrals: LESLIE NASCIMENTO DO (PCP) Patient Instructions: Dehydration, Adult, [id number], Nausea and Vomiting, Qbby-dc-Hilb, Syncope, [id number]-Vkhm Scripts Famotidine (PEPCID) 20 Mg Tablet 1 TAB PO BID for gastritis for 7 Days, #14 TAB Prov: KESHIA AG DO 12/15/18 Ondansetron (ONDANSETRON ODT) 4 Mg Tab.rapdis 1 TAB PO PRN Q6-8HRS PRN for NAUSEA, #16 TAB Prov: KESHIA AG DO 12/15/18 Hyoscyamine Sulfate (LEVSIN-SL) 0.125 Mg Tab.subl 0.125 MG SL Q6HRS PRN for PAIN, #20 TAB Prov: KESHIA AG DO 12/15/18 Problem Qualifiers Primary Impression: Nausea and vomiting Vomiting type: unspecified Vomiting Intractability: non-intractable Qualified Codes: R11.2 - Nausea with vomiting, unspecified Additional Impressions: Syncope Syncope type: unspecified Qualified Codes: R55 - Syncope and collapse KESHIA AG DO Dec 15, 2018 18:49
[2018-12-15 19:05] LABS: PREG TEST PT QUAL NEGATIVE (NEG)
--- NOTE | 2018-12-15 19:27 | RAD ---
CT head without contrast PQRS statement: CT scans at this facility use dose reduction including either automated exposure control, iterative reconstructions, and /or weight based radiation dosing via mA and kV modification when appropriate to reduce radiation dose to as low as reasonably achievable. HISTORY: Dizziness, syncope, fell and hit head. TECHNIQUE: Noncontrast imaging skull base to vertex was acquired. FINDINGS: No intracranial hemorrhage, mass, hydrocephalus, extra-axial fluid collections or infarction. No acute ischemic change. Mild mucosal thickening and fluid right sphenoid sinus extending outside the [id number]. Orbits, mastoids and bones are unremarkable. IMPRESSION: No acute intracranial CT abnormality. Mild fluid right sphenoid sinus could indicate sinusitis. Electronically signed by: Luis Whitehead MD (12/15/2018 7:24 PM) [facility]
[2018-12-15 20:33] LABS: AMORPHOUS SEDIMENT,UR PRESENT /HPF; BACTERIA,URINE 0 /HPF (0-FEW); BILIRUBIN,URINE NEG (NEG); CLARITY,URINE CLOUDY; COLOR,URINE YELLOW; GLUCOSE,URINE NEG (NEG); NITRITE,URINE NEG (NEG); RBC,URINE 0 /HPF (0-2); SQUAMOUS EPITHELIAL CELL,UR OCC /LPF; UROBILINOGEN,URINE 0.2 mg/dL (0.2 mg/dL)
[2018-12-15] MEDS ORDERED: HYOS0.1265 SL (20:36)
[2018-12-15] MEDS ORDERED: FAMO-63 PO (20:36)
[2018-12-15] MEDS ORDERED: ONDA4TAB12 PO (20:36)
[2018-12-15 20:50] VITALS: BP 147/67
--- NOTE | 2018-12-16 12:31 | EKG ---
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
== END 2018-12-15 20:50 | disposition home or self-care (01) ==
LOC: ER 17:43
DX: E86.0 Dehydration (principal); R55 Syncope and collapse; J45.909 Unspecified asthma, uncomplicated; Z98.890 Other specified postprocedural states
CPT/HCPCS: 36415; 70450; 80053; 81001; 83690; 83735; 84703; 85025; 93005; 96361; 96374; 96375; 96376; 99285; J1885; J2405; J3010; J3490; J7030

== ENCOUNTER 2018-12-29 18:13 | Observation (INO) | payer OTHER ==
[~2018-12-29] VITALS: Ht 162.6 cm; Wt 96.2 kg
[~2018-12-29 18:13] MED LIST changes: +FAMO-63 PO; +HYOS0.1265 SL; +ONDA4TAB12 PO
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
[2018-12-29] MEDS ORDERED: ONDANSETRON PF 4 MG/2 ML VIAL. IVP ONE (18:45)
[2018-12-29 19:37] LABS: BASO % 1 % (0-3); EOS % 0 % (0-3); HEMATOCRIT 40.1 % (36.0-47.0); HEMOGLOBIN 13.8 g/dL (12.0-15.5); LYMPH # 0.8 x10^3/uL (1.0-4.8); LYMPH % 13 % (24-48); MEAN CORPUSCULAR HEMOGLOBIN 36 pg (25-35); MEAN CORPUSCULAR HGB CONC 34 g/dL (31-37); MEAN CORPUSCULAR VOLUME 105 fL (79-100); MONO # 0.3 x10^3/uL (0.0-1.1); MONO % 5 % (0-9); NEUT % 82 % (31-73); PLATELET COUNT 199 x10^3/uL (140-400); RED BLOOD COUNT 3.83 x10^6/uL (3.50-5.40); WHITE BLOOD COUNT 6.2 x10^3/uL (4.0-11.0)
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
[2018-12-29 19:50] LABS: ALBUMIN 3.7 g/dL (3.4-5.0); CALCIUM 8.7 mg/dL (8.5-10.1); CREATININE 0.6 mg/dL (0.6-1.0); DIRECT BILIRUBIN 0.2 mg/dL (0.0-0.2); GFR 114.4; MAGNESIUM 1.9 mg/dL (1.8-2.4); POTASSIUM 3.5 mmol/L (3.5-5.1); TOTAL BILIRUBIN 0.5 mg/dL (0.2-1.0)
--- NOTE | 2018-12-29 20:05 | RAD ---
Study: CHEST PA LATERAL Indication: Dizziness. Comparison: 09/07/2017 Findings: Unremarkable cardiomediastinal silhouette and nathalie. No lobar consolidation, pleural effusion or pneumothorax. No free air under the diaphragm. Impression: No acute radiographic abnormality of the chest. No significant change from 09/07/2017. Electronically signed by: JONN MANJARREZ MD (12/29/2018 8:03 PM) [facility]
[2018-12-29] MEDS ORDERED: IV RINGERS SOLUTION,LACTATED 1,000 ML IV ONE (20:30)
[2018-12-29 20:45] LABS: SEDIMENTATION RATE 23 (0-25)
[2018-12-29 20:53] LABS: BARBITURATES NEG (NEG); BENZODIAZEPINES NEG (NEG); CANNABINOIDS POS (NEG); COCAINE NEG (NEG); METHADONE NEG (NEG); OPIATES NEG (NEG); PHENCYCLIDINE NEG (NEG)
[2018-12-29 20:54] LABS: AMPHETAMINE/METHAMPHETAMINE NEG (NEG)
[2018-12-29 20:58] LABS: BACTERIA,URINE FEW /HPF (0-FEW); BILIRUBIN,URINE NEG (NEG); CLARITY,URINE HAZY; COLOR,URINE YELLOW; GLUCOSE,URINE NEG (NEG); NITRITE,URINE NEG (NEG); RBC,URINE OCC /HPF (0-2); UROBILINOGEN,URINE 1 mg/dL (0.2 mg/dL); WBC,URINE OCC /HPF (0-4)
[2018-12-29 20:59] LABS: AMORPHOUS SEDIMENT,UR PRESENT /HPF; SQUAMOUS EPITHELIAL CELL,UR OCC /LPF
[2018-12-29 22:05] VITALS: BP 150/90
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
[2018-12-29] MEDS: ACETAMINOPHEN 325 MG TABLET PO PRN (22:28)
[2018-12-29] MEDS: ONDANSETRON PF 4 MG/2 ML VIAL. IV PRN (22:28)
[2018-12-30] MEDS ORDERED: AMOX1TAB11 PO (00:34)
--- NOTE | 2018-12-30 03:30 | EKG ---
[address] [address] Test Date: 2018-12-29 Test Time: 18:59:03 Pat Name: MINDI GARCIA Department: Room: 123 A Gender: F Self Pay Collector: ANDI : 1985 Requested By: JARON CARRILLO Order Number: [id number] Reading MD: Jemal King Measurements Intervals [place] Rate: 64 P: 49 ME: 148 QRS: 17 QRSD: 82 T: 27 QT: 426 QTc: 444 Interpretive Statements SINUS RHYTHM Electronically Signed On 01-17-2019 15:43:22 COMPUTER HARDWARE TECHNICIAN by Jemal King
[2018-12-30] MEDS ORDERED: BUTA1CAP31 PO (03:59)
[2018-12-30] MEDS: ONDANSETRON PF 4 MG/2 ML VIAL. IV PRN ×2 (04:11→08:26)
[2018-12-30] MEDS: ACETAMINOPHEN 325 MG TABLET PO PRN (04:11)
[2018-12-30] MEDS ORDERED: ALBUTEROL SULFATE 2.5 MG/3 ML NEBU. NEB PRN (05:00)
[2018-12-30] MEDS ORDERED: IBUPROFEN 600 MG TABLET. PO PRN (05:00)
[2018-12-30 05:20] VITALS: BP 151/95
[2018-12-30 06:19] LABS: BASO % 0 % (0-3); EOS # 0.1 x10^3/uL (0.0-0.7); EOS % 1 % (0-3); HEMATOCRIT 38.6 % (36.0-47.0); HEMOGLOBIN 13.3 g/dL (12.0-15.5); LYMPH # 1.6 x10^3/uL (1.0-4.8); LYMPH % 27 % (24-48); MEAN CORPUSCULAR HEMOGLOBIN 36 pg (25-35); MEAN CORPUSCULAR HGB CONC 34 g/dL (31-37); MEAN CORPUSCULAR VOLUME 105 fL (79-100); MONO # 0.6 x10^3/uL (0.0-1.1); MONO % 10 % (0-9); NEUT # 3.6 x10^3uL (1.8-7.7); NEUT % 62 % (31-73); PLATELET COUNT 182 x10^3/uL (140-400); RED BLOOD COUNT 3.68 x10^6/uL (3.50-5.40); WHITE BLOOD COUNT 5.9 x10^3/uL (4.0-11.0)
[2018-12-30 06:20] LABS: CREATININE 0.6 mg/dL (0.6-1.0); GFR 114.4; POTASSIUM 3.6 mmol/L (3.5-5.1)
[2018-12-30] MEDS ORDERED: FLU VAX QS 2019-20 (36MOS+)/PF 0.5 ML SYRINGE. VAX IM ONE (09:00)
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
[2018-12-30 10:49] VITALS: BP 136/91
--- NOTE | 2018-12-30 13:13 | NUR ---
Pt is feeling better, is going to leave AMA. Feels she needs to get to her daughter, hospitalist has not been around yet. Pt is stable. Pt signed AMA forms, IV out and tele off. Pt escorted to front doors by nurse. Security notified.
== END 2018-12-30 13:45 | disposition left against medical advice (07) ==
LOC: ER 18:13 → 1 SOUTH 20:00 → INTOOBSV 20:00
PROVIDERS: ADMIT Internal Medicine; ATTEND Internal Medicine
DX: S06.0X9A Concussion with loss of consciousness of unspecified duration, initial encounter (principal); I10 Essential (primary) hypertension; R73.9 Hyperglycemia, unspecified; D53.9 Nutritional anemia, unspecified; R42 Dizziness and giddiness; J45.909 Unspecified asthma, uncomplicated; Z98.891 History of uterine scar from previous surgery; Y09 Assault by unspecified means; Y93.89 Activity, other specified; Y92.89 Other specified places as the place of occurrence of the external cause; Z23 Encounter for immunization
CPT/HCPCS: 36415; 70450; 70486; 71046; 72125; 80048; 80076; 80307; 81001; 82550; 83690; 83735; 83880; 84443; 84484; 85025; 85379; 85610; 85651; 85730; 90471; 90686; 93005; 96361; 96374; 96376; 99284; G0378; G0379; J2405; J7120

== ENCOUNTER 2019-02-02 05:38 | Emergency (ER) | payer OTHER ==
[~2019-02-02] VITALS: Ht 162.6 cm; Wt 101.8 kg
[2019-02-02 05:38] VITALS: BP 144/93
[~2019-02-02 05:38] MED LIST changes: +AMOX1TAB11 PO
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
== END 2019-02-02 06:23 | disposition home or self-care (01) ==
LOC: ER 05:38
DX: S10.93XA Contusion of unspecified part of neck, initial encounter (principal); J45.909 Unspecified asthma, uncomplicated; G43.909 Migraine, unspecified, not intractable, without status migrainosus; Y08.89XA Assault by other specified means, initial encounter; Y93.89 Activity, other specified; Y92.89 Other specified places as the place of occurrence of the external cause; Y99.8 Other external cause status
CPT/HCPCS: 99281

== ENCOUNTER 2019-07-22 07:00 | Emergency (ER) | payer OTHER ==
[~2019-07-22] VITALS: Ht 162.6 cm; Wt 101.8 kg
[2019-07-22 07:52] LABS: BASO % 1 % (0-3); EOS # 0.1 x10^3/uL (0.0-0.7); EOS % 3 % (0-3); HEMATOCRIT 42.6 % (36.0-47.0); HEMOGLOBIN 14.6 g/dL (12.0-15.5); LYMPH # 1.8 x10^3/uL (1.0-4.8); LYMPH % 42 % (24-48); MEAN CORPUSCULAR HEMOGLOBIN 36 pg (25-35); MEAN CORPUSCULAR HGB CONC 34 g/dL (31-37); MEAN CORPUSCULAR VOLUME 105 fL (79-100); MONO # 0.4 x10^3/uL (0.0-1.1); MONO % 9 % (0-9); NEUT % 45 % (31-73); PLATELET COUNT 207 x10^3/uL (140-400); RED BLOOD COUNT 4.06 x10^6/uL (3.50-5.40); RED CELL DISTRIBUTION WIDTH 12.3 % (11.5-14.5); WHITE BLOOD COUNT 4.3 x10^3/uL (4.0-11.0)
[2019-07-22 07:59] LABS: CALCIUM 8.4 mg/dL (8.5-10.1); CREATININE 0.7 mg/dL (0.6-1.0); GFR 95.8; POTASSIUM 4.2 mmol/L (3.5-5.1)
--- NOTE | 2019-07-22 08:01 | RAD ---
INDICATION: Cough COMPARISON: December 29, 2018 FINDINGS: Single view of chest obtained. No definite focal airspace consolidation. Some limitation at left lung base secondary to overlying cardiac silhouette obscuring. IMPRESSION: * No definite focal airspace consolidation. Electronically signed by: Rj Barrett MD (07/22/2019 7:58 AM) [id number]
[2019-07-22 08:05] LABS: ALBUMIN 3.5 g/dL (3.4-5.0); ALBUMIN/GLOBULIN RATIO 1.1 (1.0-1.7); TOTAL BILIRUBIN 0.2 mg/dL (0.2-1.0); TOTAL PROTEIN 6.6 g/dL (6.4-8.2)
[2019-07-22 08:34] VITALS: BP 123/70
--- NOTE | 2019-07-22 08:34 | PHYS DOC ---
Past History Past Medical History: Asthma, Migraines Past Surgical History: , Oophorectomy Additional Past Surgical Histo: ECTOPIC Smoking: Non-smoker Alcohol Use: None Drug Use: Marijuana General Adult EDM: Chief Complaint: COUGH HPI: HPI: 33-year-old female presents with 3-day history of cough. The patient has had a worsening cough for the last 3 days. She is also had a low level headache, body aches, and general fatigue for about 5 days. 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 She was sent home from work due to her coughing. Patient denies fever chills. She has also had some right ear and throat pain. She is able to eat and drink normally. Review of Systems: Review of Systems: Constitutional: Denies fever or chills Eyes: Denies change in visual acuity HENT: Right ear pain and sore throat Respiratory: Cough without shortness of breath Cardiovascular: Denies chest pain or edema GI: Denies abdominal pain, nausea, vomiting, bloody stools or diarrhea : Denies dysuria Musculoskeletal: Denies back pain or joint pain Integument: Denies rash Neurologic: Denies headache, focal weakness or sensory changes Endocrine: Denies polyuria or polydipsia Lymphatic: Denies swollen glands Psychiatric: Denies depression or anxiety Heart Score: Risk Factors: Risk Factors: DM, Current or recent (<one month) smoker, HTN, HLP, family history of CAD, obesity. Risk Scores: Score 0 - 3: 2.5% MACE over next 6 weeks - Discharge Home Score 4 - 6: 20.3% MACE over next 6 weeks - Admit for Clinical Observation Score 7 - 10: 72.7% MACE over next 6 weeks - Early Invasive Strategies Allergies: Allergies: Allergies Coded Allergies Type Severity Reaction Last Updated Verified No Known Drug Allergies 11/18/18 No Physical Exam: PE: Constitutional: Well developed, well nourished, no acute distress, non-toxic appearance. [] HENT: Normocephalic, atraumatic, bilateral external ears normal, oropharynx moist, no oral exudates, nose normal. Fluid behind the right tympanic membrane worse than left, no acute otitis. [] Eyes: PERRLA, EOMI, conjunctiva normal, no discharge. [] Neck: Normal range of motion, no tenderness, supple, no stridor. [] Cardiovascular: Heart rate regular rhythm, no murmur [] Lungs & Thorax: Deferred due to isolation precautions [] Abdomen: Bowel sounds normal, soft, no tenderness, no masses, no pulsatile masses. [] Skin: Warm, dry, no erythema, no rash. [] Back: No tenderness, no CVA tenderness. [] Extremities: No tenderness, no cyanosis, no clubbing, ROM intact, no edema. [] Neurologic: Alert and oriented X 3, normal motor function, normal sensory function, no focal deficits noted. [] Psychologic: Affect normal, judgement normal, mood normal. [] Current Patient Data: Labs: Laboratory Tests Test 07/22/19 07:37 White Blood Count 4.3 x10^3/uL (4.0-11.0) Red Blood Count 4.06 x10^6/uL (3.50-5.40) Hemoglobin 14.6 g/dL (12.0-15.5) Hematocrit 42.6 % (36.0-47.0) Mean Corpuscular Volume 105 fL (79-100) H Mean Corpuscular Hemoglobin 36 pg (25-35) H Mean Corpuscular Hemoglobin Concent 34 g/dL (31-37) Red Cell Distribution Width 12.3 % (11.5-14.5) Platelet Count 207 x10^3/uL (140-400) Neutrophils (%) (Auto) 45 % (31-73) Lymphocytes (%) (Auto) 42 % (24-48) Monocytes (%) (Auto) 9 % (0-9) Eosinophils (%) (Auto) 3 % (0-3) Basophils (%) (Auto) 1 % (0-3) Neutrophils # (Auto) 2.0 x10^3uL (1.8-7.7) Lymphocytes # (Auto) 1.8 x10^3/uL (1.0-4.8) Monocytes # (Auto) 0.4 x10^3/uL (0.0-1.1) Eosinophils # (Auto) 0.1 x10^3/uL (0.0-0.7) Basophils # (Auto) 0.0 x10^3/uL (0.0-0.2) D-Dimer (Gaviota) 0.46 mg/L (0.00-0.50) Sodium Level 140 mmol/L (136-145) Potassium Level 4.2 mmol/L (3.5-5.1) Chloride Level 105 mmol/L (98-107) Carbon Dioxide Level 25 mmol/L (21-32) Anion Gap 10 (6-14) Blood Urea Nitrogen 8 mg/dL (7-20) Creatinine 0.7 mg/dL (0.6-1.0) Estimated GFR (Cockcroft-Gault) 95.8 BUN/Creatinine Ratio 11 (6-20) Glucose Level 90 mg/dL (70-99) Calcium Level 8.4 mg/dL (8.5-10.1) L Total Bilirubin 0.2 mg/dL (0.2-1.0) Aspartate Amino Transferase (AST) 8 U/L (15-37) L Alanine Aminotransferase (ALT) 17 U/L (14-59) Alkaline Phosphatase 56 U/L (46-116) Total Protein 6.6 g/dL (6.4-8.2) Albumin 3.5 g/dL (3.4-5.0) Albumin/Globulin Ratio 1.1 (1.0-1.7) Group A Streptococcus Rapid Negative (NEGATIVE) Vital Signs: Vital Signs Date Time Temp Pulse Resp B/P (MAP) Pulse Ox O2 Delivery O2 Flow Rate FiO2 07/22/19 07:13 97.0 65 16 121/68 (85) 99 Room Air EKG: EKG: [] Radiology/Procedures: Radiology/Procedures: [] Impressions: INDICATION: Cough COMPARISON: December 29, 2018 FINDINGS: Single view of chest obtained. No definite focal airspace consolidation. Some limitation at left lung base secondary to overlying cardiac silhouette obscuring. IMPRESSION: * No definite focal airspace consolidation. Electronically signed by: Troy Barrett MD (07/22/2019 7:58 AM) [id number] DICTATED AND SIGNED BY: TROY BARRETT MD DATE: 07/22/19 0758 CC: PHAN LAMBERT DO; LESLIE NASCIMENTO DO ~ Course & Med Decision Making: Course & Med Decision Making Pertinent Labs and Imaging studies reviewed. (See chart for details) The patient's chest x-ray is negative for acute findings. Her labs are unremarkable. Her symptoms are consistent with COVID-19. She may be COVID-19 positive, but she does not meet criteria for our testing or for admission. She will follow-up with the health department for testing on Wednesday. I will give her a note for work. She is stable for discharge at this time. [] Levi Disclaimer: Levi Disclaimer: This electronic medical record was generated, in whole or in part, using a voice recognition dictation system. Departure Departure: Impression: Primary Impression: Suspected 2019 novel coronavirus infection Disposition: HOME/RESIDENCE PRIOR TO ADM Condition: STABLE Referrals: LESLIE NASCIMENTO DO (PCP) Patient Instructions: Viral Syndrome PHAN LAMBERT DO July 22, 2019 08:34
== END 2019-07-22 08:44 | disposition home or self-care (01) ==
LOC: ER 07:00
DX: R05 Cough (principal); G43.909 Migraine, unspecified, not intractable, without status migrainosus; R53.83 Other fatigue; J45.909 Unspecified asthma, uncomplicated; F12.90 Cannabis use, unspecified, uncomplicated; Z90.89 Acquired absence of other organs; Z98.890 Other specified postprocedural states; Z20.828 Contact with and (suspected) exposure to other viral communicable diseases
CPT/HCPCS: 36415; 71045; 80053; 85025; 85379; 87070; 87880; 99284

== ENCOUNTER 2019-09-03 01:42 | Emergency (ER) | payer OTHER ==
[~2019-09-03] VITALS: Ht 162.6 cm; Wt 101.8 kg
--- NOTE | 2019-09-03 02:01 | PHYS DOC ---
Past History Past Medical History: Asthma, Migraines Past Surgical History: , Oophorectomy Additional Past Surgical Histo: ECTOPIC Smoking: Non-smoker Alcohol Use: None Drug Use: Marijuana General Adult HPI: HPI: ". .. I got a bug bite on this Rt. breast .. I ve been on anti biotics Clinda... something... 6 or seven days.. and it not gone yet... " Patient is a 34 year old female who presents with above hx and complaints insect bite Rt breast 12 x 16 cm with a central indurated area that is approximately 4 x 4 cm. No axillary adenopathy. No focal area of fluctuation. Patient stated this started after a small insect bite that has gotten more infected over the past 6 to 7 days. Has been on was bleed week clindamycin for the last 6 to 7 days with no improvement.. There is no striations. The nipple is normal in a ppearance as compared to left breast nipple. No axillary adenopathy. The patient follow s with Dr. Guillaume. No history of immunosuppression. Patient has had previous episode of MRSA. Patient denies any recent travel outside the [place] area. Patient denies any history of ill contacts. Patient's tetanus is up-to-date as of 3 years ago.. Review of Systems: Review of Systems: Constitutional: Denies fever or chills Eyes: Denies change in visual acuity HENT: Denies nasal congestion or sore throat Respiratory: Denies cough or shortness of breath Cardiovascular: Denies chest pain or edema GI: Denies abdominal pain, nausea, vomiting, bloody stools or diarrhea : Denies dysuria Musculoskeletal: Denies back pain or joint pain Integument: Complains of right breast insect bite and cellulitis Neurologic: Denies headache, focal weakness or sensory changes Endocrine: Denies polyuria or polydipsia Lymphatic: Denies swollen glands Psychiatric: Denies depression or anxiety Heart Score: Risk Factors: Risk Factors: DM, Current or recent (<one month) smoker, HTN, HLP, family history of CAD, obesity. Risk Scores: Score 0 - 3: 2.5% MACE over next 6 weeks - Discharge Home Score 4 - 6: 20.3% MACE over next 6 weeks - Admit for Clinical Observation Score 7 - 10: 72.7% MACE over next 6 weeks - Early Invasive Strategies Family History: Family History: Noncontributory Current Medications: Current Meds: See nursing for home meds Allergies: Allergies: Allergies Coded Allergies Type Severity Reaction Last Updated Verified No Known Drug Allergies 11/18/18 No Physical Exam: PE: Constitutional: Moderately acute distress, non-toxic appearance. [] HENT: Normocephalic, atraumatic, bilateral external ears normal, oropharynx moist, no oral exudates, nose normal. [] Eyes: PERRLA, EOMI, conjunctiva normal, no discharge. [] Neck: Normal range of motion, no tenderness, supple, no stridor. [] Cardiovascular:Heart rate regular rhythm, no murmur [] Lungs & Thorax: Bilateral breath sounds equal apex with few scattered wheezes auscultation []. Right breast insect bite and cellulitis as per HPI Abdomen: Bowel sounds normal, soft, no tenderness, no masses, no pulsatile masses. Morbidly obese. Skin: Warm, dry, no erythema, no rash.. Cellulitis as per HPI Back: No tenderness, no CVA tenderness. [] Extremities: No tenderness, no cyanosis, no clubbing, ROM intact, trace ankle edema. [] Neurologic: Alert and oriented X 3, normal motor function, normal sensory function, no focal deficits noted. [] Psychologic: Affect anxious, judgement normal, mood normal. [] EKG: EKG: [] Radiology/Procedures: Radiology/Procedures: [] Course & Med Decision Making: Course & Med Decision Making Pertinent Labs and Imaging studies reviewed. (See chart for details) Patient to use very warm moist salt compresses or Epson salt compresses 4 times a day to area of cellulitis. Patient then to massage area with Polysporin 4 times a day. Patient to take Bactrim DS twice a day for the next 10 days. Must follow-up primary care. Return if any concerns. Warned patient if this area does not improve significantly over the next 7 days may need IV antibiotics or may be possible consideration for biopsy of area on the remote chance that this could be a carcinogenic type lesion. Must follow-up. Impression : 1. Right breast insect bite and cellulitis [] Dragon Disclaimer: Levi Disclaimer: This electronic medical record was generated, in whole or in part, using a voice recognition dictation system. Departure Departure: Disposition: 01 HOME/RESIDENCE PRIOR TO ADM Condition: STABLE Referrals: ADRIAN QUIROGA MD (PCP) Scripts Fluconazole (DIFLUCAN) 100 Mg Tablet 100 MG PO DAILY for oost antibiotic, #3 TAB Prov: JARON CARRILLO MD 09/03/19 Sulfamethoxazole/Trimethoprim (BACTRIM DS TABLET) 1 Each Tablet 1 TAB PO BID for cellultis for 10 Days, #20 TAB 0 Refills Prov: JARON CARRILLO MD 09/03/19 Justification of Admission: Justification of Admission: Justification of Admission Dx: N/A Dragon Disclaimer This chart was dictated in whole or in part using Voice Recognition software in a busy, high-work load, and often noisy Emergency Department environment. It may contain unintended and wholly unrecognized errors or omissions. JARON CARRILLO MD Sep 03, 2019 02:01
[2019-09-03 02:42] VITALS: BP 134/88
[2019-09-03] MEDS ORDERED: FLUC100T7 PO (02:45)
[2019-09-03] MEDS ORDERED: SULF1TAB24 PO (02:45)
[2019-09-03] MEDS ORDERED: SMZ/TMP 800/160MG TABLET. PO ONE (03:00)
[2019-09-03] MEDS ORDERED: cefTRIAXone IM 1 GM VIAL IM ONE (03:00)
== END 2019-09-03 03:05 | disposition home or self-care (01) ==
LOC: ER 01:42
DX: S20.161A Insect bite (nonvenomous) of breast, right breast, initial encounter (principal); N61.0 Mastitis without abscess; J45.909 Unspecified asthma, uncomplicated; G43.909 Migraine, unspecified, not intractable, without status migrainosus; W57.XXXA Bitten or stung by nonvenomous insect and other nonvenomous arthropods, initial encounter; Y93.89 Activity, other specified; Y92.89 Other specified places as the place of occurrence of the external cause; Y99.8 Other external cause status
CPT/HCPCS: 96372; 99283; J0696

== ENCOUNTER 2019-09-12 14:09 | Emergency (ER) | payer OTHER ==
[~2019-09-12] VITALS: Ht 162.6 cm; Wt 101.8 kg
[~2019-09-12 14:09] MED LIST changes: +FLUC100T7 PO
[2019-09-12 14:32] VITALS: BP 159/81
[2019-09-12] MEDS ORDERED: IV NORMAL SALINE 1,000ML 1,000 ML IV SCH (15:32)
[2019-09-12] MEDS ORDERED: PROCHLORPERAZINE 10 MG/2 ML VIAL. IV ONE (15:45)
[2019-09-12] MEDS ORDERED: diphenhydrAMINE 50 MG/ML VIAL IVP ONE (15:45)
[2019-09-12 16:24] LABS: BASO % 0 % (0-3); EOS # 0.1 x10^3/uL (0.0-0.7); EOS % 1 % (0-3); HEMATOCRIT 40.9 % (36.0-47.0); HEMOGLOBIN 14.2 g/dL (12.0-15.5); LYMPH # 1.3 x10^3/uL (1.0-4.8); LYMPH % 21 % (24-48); MEAN CORPUSCULAR HEMOGLOBIN 37 pg (25-35); MEAN CORPUSCULAR HGB CONC 35 g/dL (31-37); MEAN CORPUSCULAR VOLUME 105 fL (79-100); MONO # 0.4 x10^3/uL (0.0-1.1); MONO % 7 % (0-9); NEUT # 4.3 x10^3uL (1.8-7.7); NEUT % 71 % (31-73); PLATELET COUNT 180 x10^3/uL (140-400); RED CELL DISTRIBUTION WIDTH 12.3 % (11.5-14.5); WHITE BLOOD COUNT 6.2 x10^3/uL (4.0-11.0)
[2019-09-12 16:28] LABS: CALCIUM 8.4 mg/dL (8.5-10.1); CREATININE 0.8 mg/dL (0.6-1.0); GFR 81.6
[2019-09-12 16:33] LABS: ALBUMIN 3.5 g/dL (3.4-5.0); ALBUMIN/GLOBULIN RATIO 1.2 (1.0-1.7); TOTAL BILIRUBIN 0.2 mg/dL (0.2-1.0); TOTAL PROTEIN 6.5 g/dL (6.4-8.2)
[2019-09-12 16:41] LABS: BACTERIA,URINE 0 /HPF (0-FEW); BILIRUBIN,URINE NEG (NEG); CLARITY,URINE CLEAR; COLOR,URINE YELLOW; GLUCOSE,URINE NEG (NEG); NITRITE,URINE NEG (NEG); RBC,URINE 0 /HPF (0-2); SQUAMOUS EPITHELIAL CELL,UR FEW /LPF; UROBILINOGEN,URINE 0.2 mg/dL (0.2 mg/dL); WBC,URINE OCC /HPF (0-4)
--- NOTE | 2019-09-12 17:02 | PHYS DOC ---
Past History Past Medical History: Asthma, Migraines Past Surgical History: , Oophorectomy Additional Past Surgical Histo: ECTOPIC Smoking: Non-smoker Alcohol Use: None Drug Use: Marijuana Adult General Chief Complaint Chief Complaint: WEAKNESS/GENERALIZED HPI HPI Patient is a 34 year old female who presents with complaint of headache, fatigue, and abdominal pain. Patient states that her headache and fatigue have been present over the past 3 to 5 days. Notes that she has been having recurrent left-sided abdominal pain which has been present over the past 3 weeks. She states that she followed with her primary care physician and did undergo COVID testing on September 08. She was told that her results were negative. She states however that she still has been feeling significant fatigue and body aches. She states that her abdominal pain has been sharp and intermittent. States that she had x-rays of her abdomen done by her primary physician and was told that she showed evidence of constipation. She states that she started on a laxative but notes that her pain symptoms have still been "coming and going." Denies any fever, shortness of breath, cough, or chest pain currently. No known exposure to any individuals confirmed or suspected to have COVID-19. Review of Systems Review of Systems Constitutional: Fatigue, body aches, denies fever [] Eyes: Denies change in visual acuity, redness, or eye pain [] HENT: Denies nasal congestion or sore throat [] Respiratory: Denies cough or shortness of breath [] Cardiovascular: Denies chest pain or edema [] GI: Abdominal pain, denies nausea, vomiting, bloody stools or diarrhea [] : Denies dysuria or hematuria [] Musculoskeletal: Denies back pain or joint pain [] Integument: Denies rash or skin lesions [] Neurologic: Headache, denies focal weakness or sensory changes [] All other systems were reviewed and found to be within normal limits, except as documented in this note. Current Medications Current Medications Current Medications Medications (Trade) Dose Ordered Sig/Dayna Start Time Stop Time Status Last Admin Dose Admin Diphenhydramine HCl (Benadryl) 12.5 mg 1X ONCE 09/12/19 15:45 09/12/19 15:46 DC 09/12/19 16:17 12.5 MG Prochlorperazine Edisylate (Compazine) 10 mg 1X ONCE 09/12/19 15:45 09/12/19 15:46 DC 09/12/19 16:17 10 MG Sodium Chloride 1,000 ml @ 1,000 mls/hr Q1H 09/12/19 15:32 09/12/19 16:31 DC 09/12/19 16:16 1,000 MLS/HR Allergies Allergies Allergies Coded Allergies Type Severity Reaction Last Updated Verified No Known Drug Allergies 11/18/18 No Physical Exam Physical Exam Constitutional: Alert, afebrile, appears in mild discomfort. [] HENT: Normocephalic, atraumatic, bilateral external ears normal, oropharynx moist, no oral exudates, nose normal. [] Eyes: PERRLA, EOMI, conjunctiva normal, no discharge. [] Neck: Normal range of motion, no tenderness, supple, no stridor. [] Cardiovascular:Heart rate regular rhythm, no murmur [] Lungs & Thorax: Bilateral breath sounds clear to auscultation [] Abdomen: Bowel sounds normal, soft, mild left upper and lower quadrant tenderness to palpation with no guarding or rebound tenderness, no masses, no pulsatile masses. [] Skin: Warm, dry, no erythema, no rash. [] Back: No tenderness, no CVA tenderness. [] Extremities: No tenderness, no cyanosis, no clubbing, ROM intact, no edema. [] Neurologic: Alert and oriented X 3, normal motor function, normal sensory function, no focal deficits noted. [] Current Patient Data Vital Signs Vital Signs Date Time Temp Pulse Resp B/P (MAP) Pulse Ox O2 Delivery O2 Flow Rate FiO2 09/12/19 14:32 97.6 68 16 159/81 (107) 97 Room Air Lab Results Laboratory Tests Test 09/12/19 15:40 09/12/19 15:47 Urine Collection Type Void Urine Color Yellow Urine Clarity Clear Urine pH 7.0 Urine Specific [place] 1.015 Urine Protein Neg (NEG-TRACE) Urine Glucose (UA) Neg mg/dL (NEG) Urine Ketones (Stick) Neg mg/dL (NEG) Urine Blood Neg (NEG) Urine Nitrite Neg (NEG) Urine Bilirubin Neg (NEG) Urine Urobilinogen Dipstick 0.2 mg/dL (0.2 mg/dL) Urine Leukocyte Esterase Neg (NEG) Urine RBC 0 /HPF (0-2) Urine WBC Occ /HPF (0-4) Urine Squamous Epithelial Cells Few /LPF Urine Bacteria 0 /HPF (0-FEW) White Blood Count 6.2 x10^3/uL (4.0-11.0) Red Blood Count 3.90 x10^6/uL (3.50-5.40) Hemoglobin 14.2 g/dL (12.0-15.5) Hematocrit 40.9 % (36.0-47.0) Mean Corpuscular Volume 105 fL (79-100) H Mean Corpuscular Hemoglobin 37 pg (25-35) H Mean Corpuscular Hemoglobin Concent 35 g/dL (31-37) Red Cell Distribution Width 12.3 % (11.5-14.5) Platelet Count 180 x10^3/uL (140-400) Neutrophils (%) (Auto) 71 % (31-73) Lymphocytes (%) (Auto) 21 % (24-48) L Monocytes (%) (Auto) 7 % (0-9) Eosinophils (%) (Auto) 1 % (0-3) Basophils (%) (Auto) 0 % (0-3) Neutrophils # (Auto) 4.3 x10^3uL (1.8-7.7) Lymphocytes # (Auto) 1.3 x10^3/uL (1.0-4.8) Monocytes # (Auto) 0.4 x10^3/uL (0.0-1.1) Eosinophils # (Auto) 0.1 x10^3/uL (0.0-0.7) Basophils # (Auto) 0.0 x10^3/uL (0.0-0.2) Sodium Level 140 mmol/L (136-145) Potassium Level 4.0 mmol/L (3.5-5.1) Chloride Level 106 mmol/L (98-107) Carbon Dioxide Level 28 mmol/L (21-32) Anion Gap 6 (6-14) Blood Urea Nitrogen 11 mg/dL (7-20) Creatinine 0.8 mg/dL (0.6-1.0) Estimated GFR (Cockcroft-Gault) 81.6 BUN/Creatinine Ratio 14 (6-20) Glucose Level 107 mg/dL (70-99) H Calcium Level 8.4 mg/dL (8.5-10.1) L Total Bilirubin 0.2 mg/dL (0.2-1.0) Aspartate Amino Transferase (AST) 12 U/L (15-37) L Alanine Aminotransferase (ALT) 20 U/L (14-59) Alkaline Phosphatase 53 U/L (46-116) Total Protein 6.5 g/dL (6.4-8.2) Albumin 3.5 g/dL (3.4-5.0) Albumin/Globulin Ratio 1.2 (1.0-1.7) Lipase 125 U/L (73-393) EKG EKG Not performed [] Radiology/Procedures Radiology/Procedures Not performed [] Course & Med Decision Making Course & Med Decision Making Pertinent Labs and Imaging studies reviewed. (See chart for details) Patient was given IV fluids, Compazine, and Zofran in the emergency department. Patient's vital signs remained stable and patient is in no acute distress on reevaluation. Blood work appears stable. Medical screening examination was completed with no acute life-threatening or surgical process identified. The patient is stable for discharge home at this time. Prescribed Bentyl and Zofran for treatment of ongoing abdominal symptoms which are suspicious for possible irritable bowel syndrome. Advised that the patient follow with her primary doctor in 2 days for reevaluation and return to the emergency department for any worsening symptoms. Patient voiced understanding and agreement with treatment plan. [] Dragon Disclaimer Dragon Disclaimer This electronic medical record was generated, in whole or in part, using a voice recognition dictation system. Departure Departure: Impression: Primary Impression: Abdominal pain Additional Impressions: Fatigue Headache Disposition: 01 HOME/RESIDENCE PRIOR TO ADM Condition: STABLE Referrals: ADRIAN QUIROGA MD (PCP) Patient Instructions: Abdominal Pain (Nonspecific), Fatigue, General Headache Without Cause Additional Instructions: Follow-up with your primary care physician within the next 2 days for reevaluation. Return to the emergency department for any worsening symptoms. Scripts Dicyclomine Hcl (DICYCLOMINE HCL) 20 Mg Tablet 1 TAB PO TID, #30 TAB 0 Refills Prov: SWEETIE CARDOZA MD 09/12/19 Ondansetron (ONDANSETRON ODT) 4 Mg Tab.rapdis 1 TAB PO PRN Q6-8HRS, #16 TAB Prov: SWEETIE CARDOZA MD 09/12/19 Justification of Admission: Justification of Admission: Justification of Admission Dx: N/A Problem Qualifiers Primary Impression: Abdominal pain Abdominal location: unspecified location Qualified Codes: R10.9 - Unspecified abdominal pain Additional Impressions: Fatigue Fatigue type: unspecified Qualified Codes: R53.83 - Other fatigue Headache Headache type: unspecified Headache chronicity pattern: unspecified pattern Intractability: not intractable Qualified Codes: R51 - Headache SWEETIE CARDOZA MD Sep 12, 2019 17:02
[2019-09-12] MEDS ORDERED: ONDA4TAB12 PO (17:36)
[2019-09-12] MEDS ORDERED: DICY20TA3 PO (17:36)
== END 2019-09-12 18:09 | disposition home or self-care (01) ==
LOC: ER 14:09
DX: R10.32 Left lower quadrant pain (principal); G43.909 Migraine, unspecified, not intractable, without status migrainosus; R53.83 Other fatigue; J45.909 Unspecified asthma, uncomplicated; F12.90 Cannabis use, unspecified, uncomplicated; Z90.89 Acquired absence of other organs; Z98.890 Other specified postprocedural states
CPT/HCPCS: 36415; 80053; 81001; 83690; 85025; 96374; 96375; 99284; J0780; J1200; J7030; 81025

== ENCOUNTER 2019-10-12 10:42 | Emergency (ER) | payer OTHER ==
[~2019-10-12] VITALS: Ht 162.6 cm; Wt 101.8 kg
[~2019-10-12 10:42] MED LIST changes: +DICY20TA3 PO
[2019-10-12 10:50] VITALS: BP 141/89
--- NOTE | 2019-10-12 11:11 | PHYS DOC ---
Past History Past Medical History: Asthma, Migraines Past Surgical History: , Oophorectomy Additional Past Surgical Histo: ECTOPIC Smoking: Non-smoker Alcohol Use: None Drug Use: Marijuana General Adult EDM: Chief Complaint: HIP PAIN HPI: HPI: 34-year-old female past medical history significant for migraine headaches, obesity, history of ectopic in 2017 and seasonal allergies, presents to the ED with complaints of left hip pain that radiates down the anterior thigh, started yesterday after patient was wrestling with her boyfriend. Patient states she felt as if her leg twisted inwards and she arched her back when she felt a pop in her left hip. No relief with Tylenol or ibuprofen last night. Pain worsens with twisting motions of the hip, no pain with thigh extension/flexion. No prior injury to the left hip or pelvis. Is able to bear weight. Last menstrual period was 4 days ago. Saw her primary care physician 2 weeks ago for her migraines (Dr. Quiroga). ROS: Denies associated fever, chills, headache, neck stiffness, sore throat, cough, chest pain, dyspnea, saddle anesthesia, urinary bowel retention or incontinence, leg swelling, rash, hemoptysis, nausea, vomiting, diarrhea, abdominal pain. Current Medications: Current Meds: Current Medications Medications (Trade) Dose Ordered Sig/Dayna Start Time Stop Time Status Last Admin Dose Admin Lidocaine (Lidoderm) 1 patch DAILY 10/13/19 09:00 UNV Allergies: Allergies: Allergies Coded Allergies Type Severity Reaction Last Updated Verified No Known Drug Allergies 11/18/18 No Physical Exam: PE: Constitutional: Well developed, well nourished, no acute distress, non-toxic appearance. [] HENT: Normocephalic, atraumatic, bilateral external ears normal, oropharynx moist, no oral exudates, nose normal. [] Eyes: EOMI, conjunctiva normal, no discharge. [] Neck: Normal range of motion, no tenderness, supple, no stridor. [] Cardiovascular:Heart rate regular rhythm, no murmur [] Lungs & Thorax: Bilateral breath sounds clear to auscultation [] Abdomen: Bowel sounds normal, soft, no tenderness, no masses, no pulsatile masses. [] Skin: Warm, dry, no erythema, no rash. [] Back: No midline tenderness, no CVA tenderness. [] Extremities: No tenderness, no cyanosis, no clubbing, ROM intact, no edema, +left ASIS and proximal femur ttp, straight leg negative bl, equal LE pulses, normal flexion/extension of left hip - pain illicited with internal/external hip rotation Neurologic: Alert and oriented X 3, normal motor function, normal sensory function, no focal deficits noted. [] no ataxic gait Psychologic: Affect normal, judgement normal, mood normal. [] EKG: EKG: [] Radiology/Procedures: Radiology/Procedures: [] IMAGING REPORT Signed PATIENT: MINDI GARCIA ACCOUNT: [id number] : 1985 LOCATION: ER AGE: 34 SEX: F EXAM STATUS: REG ER ORD. PHYSICIAN: SIDDHARTH ALEX DO REASON: hip pain PROCEDURE: HIP LEFT 2V WITH PELVIS Study: CR HIP LEFT 2V WITH PELVIS Indication: Hip pain. Comparison: CT abdomen/pelvis 10/19/2018 Findings: Hip joint spaces are maintained. No acute fracture. Bone islands redemonstrated within the left femoral neck and superior pubic ramus. No abnormality seen across the sacroiliac joints. The arcuate lines are intact. Impression: No acute fracture or advanced arthrosis throughout the pelvis. Electronically signed by: JONN MANJARREZ MD (10/12/2019 11:20 AM) [id number] DICTATED AND SIGNED BY: JONN MANJARREZ MD DATE: 10/12/19 1120 CC: ADRIAN QUIROGA MD; SIDDHARTH ALEX DO ~ Course & Med Decision Making: Course & Med Decision Making Pertinent Labs and Imaging studies reviewed. (See chart for details) Concern for left hip pain from a suspected hyperextension vs twisting motion, no bone avulsion on left hip xray imaging. Pt with steady gait, in no distress. Will treat conservatively with muscle relaxers, Tylenol and Motrin o [id number] and rice instructions. Encouraged urgent outpatient follow-up with PMD and orthopedic (if sxs persist > 10-14 days) surgery. Life-threatening processes were considered but are low suspicion at this time, given history and physical exam. All patient's questions were answered and pt was stable at time of discharge. Differential includes aortic dissection, cauda equina syndrome, transverse myelitis, spinal cord compression, epidural abscess or hematoma, osteomyelitis, disc herniation, surgical abdomen, stable or unstable fracture, renal colic, musculoskeletal injury, traumatic injury, intraabdominal or pelvic bleeding, neurologic deficit spoken with the patient and her caregivers. I explained the patient's condition, diagnoses and treatment plan based on the information available to me at this time. I have answered the patient and her caregiver's questions and a ddressed any concerns. The patient and her caregivers have a good understanding of patient's diagnosis, condition and treatment plan as can be expected at this point. Vital signs have been stable. Patient's condition is stable and appropriate for discharge from the emergency department. Patient will pursue further outpatient evaluation with primary care physician or other designated or consulting physician as outlined in the discharge instructions. The patient and/or caregivers are agreeable to this plan of care and follow-up instructions have been explained in detail. The patient and/or caregivers have received these instructions in written form and have expressed an understanding of the discharge instructions. The patient and/or caregivers are aware that any significant change of condition or worsening of symptoms should prompt immediate return to this or the closest emergency department or call to 911. Omate Disclaimer: DragIntrinsity Disclaimer: This electronic medical record was generated, in whole or in part, using a voice recognition dictation system. Departure Departure: Impression: Primary Impression: Hip pain, left Additional Impression: Sprain and strain of hip Disposition: 01 HOME/RESIDENCE PRIOR TO ADM Condition: STABLE Referrals: ADRIAN QUIROGA MD (PCP) Patient Instructions: Hip Pain Additional Instructions: Charlie Hood MD-orthopedic surgery [address] [address] Scripts Lidocaine/Menthol (LIDOPATCH) 1 Each Adh..patch 1 JEAN-PAUL TP BID for pain for 30 Days, #8 EACH 0 Refills Prov: SIDDHARTH ALEX DO 10/12/19 Cyclobenzaprine Hcl (CYCLOBENZAPRINE HCL) 5 Mg Tablet 1 TAB PO TID for pain, #20 TAB Prov: SIDDHARTH ALEX DO 10/12/19 Justification of Admission: Justification of Admission: Justification of Admission Dx: N/A SIDDHARTH ALEX DO Oct 12, 2019 11:11
[2019-10-12] MEDS: LIDOCAINE (700MG/PATCH) PATCH. TD SCH (11:19)
--- NOTE | 2019-10-12 11:23 | RAD ---
Study: CR HIP LEFT 2V WITH PELVIS Indication: Hip pain. Comparison: CT abdomen/pelvis 10/19/2018 Findings: Hip joint spaces are maintained. No acute fracture. Bone islands redemonstrated within the left femoral neck and superior pubic ramus. No abnormality seen across the sacroiliac joints. The arcuate lines are intact. Impression: No acute fracture or advanced arthrosis throughout the pelvis. Electronically signed by: JONN MANJARREZ MD (10/12/2019 11:20 AM) [id number]
[2019-10-12] MEDS ORDERED: LIDO1ADH TP (11:51)
[2019-10-12] MEDS ORDERED: CYCL5TAB PO (11:51)
== END 2019-10-12 12:03 | disposition home or self-care (01) ==
LOC: ER 10:42
DX: S73.102A Unspecified sprain of left hip, initial encounter (principal); G43.909 Migraine, unspecified, not intractable, without status migrainosus; J45.909 Unspecified asthma, uncomplicated; E66.9 Obesity, unspecified; Z68.38 Body mass index [BMI] 38.0-38.9, adult; X50.1XXA Overexertion from prolonged static or awkward postures, initial encounter; Y93.89 Activity, other specified; Y92.89 Other specified places as the place of occurrence of the external cause; Y99.8 Other external cause status
CPT/HCPCS: 73502; 99283-25

== ENCOUNTER 2020-03-05 05:39 | Emergency (ER) | payer OTHER ==
[~2020-03-05] VITALS: Ht 162.6 cm; Wt 104.0 kg
[~2020-03-05 05:39] MED LIST changes: +CYCL5TAB PO; +LIDO1ADH TP
[2020-03-05] MEDS ORDERED: ONDANSETRON PF 4 MG/2 ML VIAL. ONE (06:18)
--- NOTE | 2020-03-05 06:20 | EKG ---
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
[2020-03-05] MEDS ORDERED: KETOROLAC 15 MG/ML VIAL. IVP ONE (06:30)
[2020-03-05] MEDS ORDERED: IV NORMAL SALINE 1,000ML 1,000 ML IV ONE (06:30)
[2020-03-05] MEDS ORDERED: ONDANSETRON PF 4 MG/2 ML VIAL. IVP ONE (06:30)
[2020-03-05] MEDS ORDERED: diphenhydrAMINE 50 MG/ML VIAL IVP ONE (06:30)
[2020-03-05] MEDS ORDERED: PROCHLORPERAZINE 10 MG/2 ML VIAL. IV ONE (06:30)
[2020-03-05 06:59] LABS: BASO % 0 % (0-3); EOS # 0.1 x10^3/uL (0.0-0.7); EOS % 2 % (0-3); HEMATOCRIT 42.5 % (36.0-47.0); HEMOGLOBIN 14.8 g/dL (12.0-15.5); LYMPH # 1.9 x10^3/uL (1.0-4.8); LYMPH % 27 % (24-48); MEAN CORPUSCULAR HEMOGLOBIN 36 pg (25-35); MEAN CORPUSCULAR HGB CONC 35 g/dL (31-37); MEAN CORPUSCULAR VOLUME 103 fL (79-100); MONO # 0.4 x10^3/uL (0.0-1.1); MONO % 6 % (0-9); NEUT # 4.4 x10^3uL (1.8-7.7); NEUT % 64 % (31-73); PLATELET COUNT 229 x10^3/uL (140-400); RED BLOOD COUNT 4.13 x10^6/uL (3.50-5.40); RED CELL DISTRIBUTION WIDTH 12.3 % (11.5-14.5); WHITE BLOOD COUNT 6.9 x10^3/uL (4.0-11.0)
--- NOTE | 2020-03-05 07:06 | PHYS DOC ---
Past History Past Medical History: Asthma, Migraines Past Surgical History: , Oophorectomy Additional Past Surgical Histo: ECTOPIC Smoking: Non-smoker Alcohol Use: None Drug Use: Marijuana General Adult EDM: Chief Complaint: HEADACHE HPI: HPI: Patient is a 34-year-old female coming in for multiple complaints. Patient states she was also seen at the urgent care yesterday and had a Covid swab done. Patient is complaining of chest pain, back pain, neck pain worse on the right, nausea and dry heaving, headache. States the headache has been gradually worsening since yesterday is worse when she coughs. Complaining of body aches. Denies any fever, diarrhea or urinary changes. She states she did get her flu vaccine this year. Denies any sick contacts. Review of Systems: Review of Systems: All other systems within normal limits except for as noted in the HPI Current Medications: Current Meds: Current Medications Medications (Trade) Dose Ordered Sig/Dayna Start Time Stop Time Status Last Admin Dose Admin Diphenhydramine HCl (Benadryl) 50 mg 1X ONCE 03/05/20 06:30 03/05/20 06:31 DC 03/05/20 06:57 50 MG Ketorolac Tromethamine (Toradol 15mg Vial) 15 mg 1X ONCE 03/05/20 06:30 03/05/20 06:31 DC 03/05/20 06:58 15 MG Ondansetron HCl (Zofran) 4 mg STK-MED ONCE 03/05/20 06:18 03/05/20 06:19 DC Prochlorperazine Edisylate (Compazine) 10 mg 1X ONCE 03/05/20 06:30 03/05/20 06:31 DC 03/05/20 06:57 10 MG Sodium Chloride 1,000 ml @ 1,000 mls/hr 1X ONCE 03/05/20 06:30 03/05/20 07:29 03/05/20 06:58 1,000 MLS/HR Allergies: Allergies: Allergies Coded Allergies Type Severity Reaction Last Updated Verified No Known Drug Allergies 11/18/18 No Physical Exam: PE: Constitutional: Well developed, well nourished, no acute distress, non-toxic appearance. [] HENT: Normocephalic, atraumatic, bilateral external ears normal, oropharynx moist, no oral exudates, nose normal. [] Eyes: PERRLA, EOMI, conjunctiva normal, no discharge. [] Neck: Normal range of motion, mild right-sided tenderness, no C-spine tenderness, no rigidity, supple, no stridor. [] Cardiovascular:Heart rate regular rhythm, no murmur [] Lungs & Thorax: Bilateral breath sounds clear to auscultation [] Abdomen: Bowel sounds normal, soft, mild generalized tenderness, no guarding or rebound, no masses, no pulsatile masses. [] Skin: Warm, dry, no erythema, no rash. [] Back: No tenderness, no CVA tenderness. [] Extremities: No tenderness, no cyanosis, no clubbing, ROM intact, no edema. [] Neurologic: Alert and oriented X 3, normal motor function, normal sensory function, no focal deficits noted. [] Psychologic: Affect normal, judgement normal, mood normal. [] Current Patient Data: Labs: Laboratory Tests Test 03/05/20 06:32 03/05/20 06:40 POC Urine HCG, Qualitative hcg negative (Negative) White Blood Count 6.9 x10^3/uL (4.0-11.0) Red Blood Count 4.13 x10^6/uL (3.50-5.40) Hemoglobin 14.8 g/dL (12.0-15.5) Hematocrit 42.5 % (36.0-47.0) Mean Corpuscular Volume 103 fL (79-100) H Mean Corpuscular Hemoglobin 36 pg (25-35) H Mean Corpuscular Hemoglobin Concent 35 g/dL (31-37) Red Cell Distribution Width 12.3 % (11.5-14.5) Platelet Count 229 x10^3/uL (140-400) Neutrophils (%) (Auto) 64 % (31-73) Lymphocytes (%) (Auto) 27 % (24-48) Monocytes (%) (Auto) 6 % (0-9) Eosinophils (%) (Auto) 2 % (0-3) Basophils (%) (Auto) 0 % (0-3) Neutrophils # (Auto) 4.4 x10^3uL (1.8-7.7) Lymphocytes # (Auto) 1.9 x10^3/uL (1.0-4.8) Monocytes # (Auto) 0.4 x10^3/uL (0.0-1.1) Eosinophils # (Auto) 0.1 x10^3/uL (0.0-0.7) Basophils # (Auto) 0.0 x10^3/uL (0.0-0.2) Vital Signs: Vital Signs Date Time Temp Pulse Resp B/P (MAP) Pulse Ox O2 Delivery O2 Flow Rate FiO2 03/05/20 05:39 62 18 158/102 (120) 97 Room Air EKG: EKG: Normal sinus rhythm, 58 bpm, no ST elevation or depression, no ectopy, normal axis, normal intervals [] Radiology/Procedures: Radiology/Procedures: EXAM: XR CHEST 2V INDICATION: Reason: chest pain, cough, nausea, headache / Spl. Instructions: / History: . TECHNIQUE: PA and lateral views COMPARISON: 07/22/2019 chest x-ray FINDINGS: The heart size is normal. The great vessels appear unremarkable. There is no hilar or mediastinal mass. The lungs are clear. There is no pleural effusion or pneumothorax. There are no significant osseous abnormalities. IMPRESSION: No active cardiopulmonary disease.[] Heart Score: Risk Factors: Risk Factors: DM, Current or recent (<one month) smoker, HTN, HLP, family history of CAD, obesity. Risk Scores: Score 0 - 3: 2.5% MACE over next 6 weeks - Discharge Home Score 4 - 6: 20.3% MACE over next 6 weeks - Admit for Clinical Observation Score 7 - 10: 72.7% MACE over next 6 weeks - Early Invasive Strategies Course & Med Decision Making: Course & Med Decision Making Pertinent Labs and Imaging studies reviewed. (See chart for details) Discussed symptomatic treatment and isolation until Covid test that was done yesterday comes back. Patient's headache improved with medications and she is ready go home [] Dragon Disclaimer: Dragon Disclaimer: This electronic medical record was generated, in whole or in part, using a voice recognition dictation system. Departure Departure: Impression: Primary Impression: Viral syndrome Disposition: 01 DC HOME SELF CARE/HOMELESS Condition: IMPROVED Referrals: ADRIAN QUIROGA MD (PCP) Additional Instructions: You have been tested for or diagnosed with COVID-19. It is an infection caused by a new type of coronavirus. COVID-19 will cause cold-like or mild flu symptoms in most. It can cause more severe symptoms like problems breathing in some. There is no treatment for COVID-19. The body will clear the infection over time. Self-care will help to ease discomfort. Steps to Take: Self-Care Rest as needed. Healthy habits may help you feel better. Steps include: Choose healthy foods including fruits and vegetables. Drink water throughout the day. Get plenty of sleep each night. If you smoke, try to quit. It may ease breathing. Avoid alcohol. Keep Others Healthy The virus can spread to others. Droplets are released every time you sneeze or cough. The droplets can get into the mouth, nose, or eyes of people near you and lead to infection. To lower the chances of spreading COVID-19 to others: Stay at home until your doctor has said it is safe to leave. If you tested positive this will mean staying isolated until both of the following are true: At least 7 days have passed since the start of illness. You are free of fever for at least 72 hours without the use of medicine. During this time: - Avoid public areas, events, or transportation. Do not return to work or school until your doctor has said it is safe to do so. - Call ahead if you need to go to a medical center. Let them know you may have COVID-19. It will help them guide you where to go. They may also ask you to wear a facemask when you come to the office. - If you call for emergency medical services, let them know you may have COVID- 19. While at home: - Try to avoid close contact with others. Stay about 6 feet away. - If possible, spend most of your time in a separate room from others. - Use a face mask if you will be in close contact with others such as sharing a room or vehicle. - Have someone wipe down common surfaces in the home. Use household division service manager every day on areas like doorknobs, counters, or sinks. - Cough or sneeze into a tissue. Throw the tissue away right after use. If a tissue is not available, cough or sneeze into your elbow. - Wash your hands often. Wash them after sneezing or coughing. Use soap and water and wash for at least 20 seconds. Alcohol based hand mold cleaner can be used if soap and water is not available. - Do not prepare food for others. Avoid sharing personal items like forks, spoons, or toothbrushes. - Avoid close contact with pets while you are sick. There is no evidence of the virus passing to pets. This is a safety step until more is known about this virus. Isolation can be frustrating. Social interaction can help. Keep in touch with friends and family through phone and tech options. You can still interact with others in your home, just keep a safe distance of about 6 feet. Follow-up: Your doctors office will check in with you to see if there are any changes in your health. You may be asked to keep track of symptoms to share with them. They will also let you know when you are clear to be in public again. Problems to Look Out For: Contact your doctor if your recovery is not going as you expect. Get emergency care if you have problems such as: - Trouble breathing - Nonstop chest pain or pressure - Changes in awareness, confusion, or problems waking - Lips or face have bluish color - Worsening of symptoms If you think you have an emergency, call for emergency medical services right aw ay. As taken from [facility] Scripts Ondansetron (ONDANSETRON ODT) 4 Mg Tab.rapdis 1 TAB PO PRN Q6-8HRS for nausea, #16 TAB Prov: LITTLE MERCHANT MD 03/05/20 LITTLE MERCHANT MD Mar 05, 2020 07:05
[2020-03-05 07:11] LABS: BILIRUBIN,URINE NEG (NEG); CLARITY,URINE CLOUDY; COLOR,URINE YELLOW; GLUCOSE,URINE NEG (NEG); NITRITE,URINE NEG (NEG); UROBILINOGEN,URINE 0.2 mg/dL (0.2 mg/dL)
[2020-03-05 07:12] LABS: CALCIUM 8.9 mg/dL (8.5-10.1); CREATININE 0.7 mg/dL (0.6-1.0); GFR 95.2; POTASSIUM 3.9 mmol/L (3.5-5.1)
[2020-03-05 07:12] LABS: BACTERIA,URINE MOD /HPF (0-FEW); SQUAMOUS EPITHELIAL CELL,UR MANY /LPF
[2020-03-05 07:18] LABS: ALBUMIN 3.8 g/dL (3.4-5.0); ALBUMIN/GLOBULIN RATIO 1.1 (1.0-1.7); TOTAL BILIRUBIN 0.3 mg/dL (0.2-1.0); TOTAL PROTEIN 7.3 g/dL (6.4-8.2)
--- NOTE | 2020-03-05 07:50 | RAD ---
EXAM: XR CHEST 2V INDICATION: Reason: chest pain, cough, nausea, headache / Spl. Instructions: / History: . TECHNIQUE: PA and lateral views COMPARISON: 07/22/2019 chest x-ray FINDINGS: The heart size is normal. The great vessels appear unremarkable. There is no hilar or mediastinal mass. The lungs are clear. There is no pleural effusion or pneumothorax. There are no significant osseous abnormalities. IMPRESSION: No active cardiopulmonary disease. Electronically signed by: Reshma Li MD (03/05/2020 7:48 AM) [id number]
[2020-03-05 08:36] LABS: INFLUENZA A PATIENT NEGATIVE (NEGATIVE); INFLUENZA B PATIENT NEGATIVE (NEGATIVE)
[2020-03-05] MEDS ORDERED: ONDA4TAB12 PO (08:49)
[2020-03-05 09:14] VITALS: BP 131/81
== END 2020-03-05 09:15 | disposition home or self-care (01) ==
LOC: ER 05:39
DX: B34.9 Viral infection, unspecified (principal); J45.909 Unspecified asthma, uncomplicated; G43.909 Migraine, unspecified, not intractable, without status migrainosus
CPT/HCPCS: 36415; 71046; 80053; 81001; 81025; 83690; 85025; 87086; 87804; 93005; 96361; 96374; 96375; 99285; J0780; J1200; J1885; J2405; J7030

== ENCOUNTER 2020-08-23 17:27 | Emergency (ER) | payer OTHER ==
[~2020-08-23] VITALS: Ht 162.6 cm; Wt 100.0 kg
[2020-08-23 17:45] VITALS: BP 133/81
[2020-08-23] MEDS ORDERED: diphenhydrAMINE HCL 25 MG CAPSULE PO ONE (18:00)
--- NOTE | 2020-08-23 18:03 | PHYS DOC ---
Past History Past Medical History: Asthma, Migraines (KATH PITTMAN APRN) Past Surgical History: , Oophorectomy Additional Past Surgical Histo: ECTOPIC (KATH PITTMAN APRN) Smoking: Non-smoker Alcohol Use: None Drug Use: Marijuana (KATH PITTMAN APRN) General Adult EDM: Chief Complaint: ALLERGIC REACTION HPI: HPI: Patient is a 35-year-old female who presents to the ER with a rash to her abdomen, back, and buttocks that started this morning. Patient reports that she was diagnosed with bronchitis and an upper respiratory infection 4 days ago and was prescribed Zithromax and prednisone. She is on day 3 of 5 of her Zithromax and she believes that is the cause of her allergic reaction. She reports the rash is itchy and is not painful. She denies shortness of breath or difficulty swallowing or breathing. She had no treatment prior to arrival. (KATH PITTMAN APRN) Review of Systems: Review of Systems: 14 body systems of the review of systems have been reviewed. See HPI for pertinent positive and negative responses, otherwise all other systems are negative, nonpertinent or noncontributory (KATH PITTMAN APRN) Allergies: Allergies: Allergies Coded Allergies Type Severity Reaction Last Updated Verified No Known Drug Allergies 11/18/18 No (KATH PITTMAN APRN) Physical Exam: PE: Constitutional: Well developed, well nourished, no acute distress, non-toxic appearance. [] HENT: Normocephalic, atraumatic, bilateral external ears normal, oropharynx moist, no oral exudates, nose normal, turbinates swollen, patient able to speak in clear sentences and able to maintain secretions. [] Eyes: PERRLA,conjunctiva normal, no discharge. [] Neck: Normal range of motion, no tenderness, supple, no stridor. [] Cardiovascular:Heart rate regular rhythm, no murmur [] Lungs & Thorax: Wheezing noted in right upper lobe with auscultation, patient is nonlabored and not hypoxic. [] Skin: Warm, dry. Patient has erythematous papular rash to abdomen, back, and buttocks. Extremities: No tenderness, no cyanosis, no clubbing, ROM intact, no edema. [] Neurologic: Alert and oriented X 3, normal motor function, normal sensory function, no focal deficits noted. [] Psychologic: Affect normal, judgement normal, mood normal. [] (KATH PITTMAN APRN) EKG: EKG: [] (KATH PITTMAN APRN) Radiology/Procedures: Radiology/Procedures: [] (KATH PITTMAN APRN) Heart Score: C/O Chest Pain: No Risk Factors: Risk Factors: DM, Current or recent (<one month) smoker, HTN, HLP, family history of CAD, obesity. Risk Scores: Score 0 - 3: 2.5% MACE over next 6 weeks - Discharge Home Score 4 - 6: 20.3% MACE over next 6 weeks - Admit for Clinical Observation Score 7 - 10: 72.7% MACE over next 6 weeks - Early Invasive Strategies (KATH PITTMAN APRN) Course & Med Decision Making: Course & Med Decision Making Pertinent Labs and Imaging studies reviewed. (See chart for details) Patient is a 35-year-old female that was seen in the ER for a rash to her abdomen, back, and buttocks that she believes is due to her Zithromax which she was recently prescribed. Patient is in no acute distress is any increased shortness of breath. Patient was given Benadryl p.o. in the ER. Patient was told to discontinue the Zithromax, continue prednisone and follow-up with her primary care provider. Patient discharged home with an albuterol inhaler due to mild wheezing noted on auscultation is most likely attributed to her upper respiratory infection or bronchitis. Patient is agreeable to plan of care (KATH PITTMAN APRN) Dragon Disclaimer: Dragon Disclaimer: This electronic medical record was generated, in whole or in part, using a voice recognition dictation system. (KATH PITTMAN APRN) Departure Departure: Impression: Primary Impression: Allergic dermatitis Disposition: HOME / SELF CARE / HOMELESS Condition: GOOD Referrals: ADRIAN QUIROGA MD (PCP) Patient Instructions: Contact Dermatitis, [id number]-[id number] Additional Instructions: Thank you for choosing [facility] [place] and allowing me to participate in your care. As we have discussed, your findings indicate an allergic reaction to the medications that you were placed on. As we have discussed, the treatment includes discontinuation of Zithromax and the addition of Benadryl. You did have mild wheezing noted during your physical exam please use the albuterol inhaler 1 to 2 puffs every 6-8 hours as needed for shortness of breath. Please follow up with your primary care provider tomorrow regarding your ER visit. If your symptoms worsen or you develop rash that does not resolve, fever, body aches, increased shortness of breath, chest pain, nausea, vomiting, difficulty swallowing, please return. Scripts Albuterol Sulfate (PROAIR HFA INHALER) 8.5 Gm Hfa.aer.ad 2 PUFF IH PRN Q4-6HRS PRN for wheezing for 21 Days, #1 INHALER 0 Refills Prov: KATH PITTMAN APRN 08/23/20 Attending Signature Attending Signature I have participated in the care of this patient and I have reviewed and agree with all pertinent clinical information above including history, exam, and recommendations. (JARON CARRILLO MD) Attending Signature Attending Signature I have participated in the care of this patient and I have reviewed and agree with all pertinent clinical information above including history, exam, and recommendations. (JARON CARRILLO MD) KATH PITTMAN APRN Aug 23, 2020 18:03 JARON CARRILLO MD Aug 24, 2020 05:05
[2020-08-23] MEDS ORDERED: ALBU2.5V8 IH (18:37)
== END 2020-08-23 18:55 | disposition home or self-care (01) ==
LOC: ER 17:27
DX: L23.9 Allergic contact dermatitis, unspecified cause (principal); J45.909 Unspecified asthma, uncomplicated; F12.10 Cannabis abuse, uncomplicated
CPT/HCPCS: 99283; Q0163; 99282

== ENCOUNTER 2020-08-25 23:02 | Emergency (ER) | payer OTHER ==
[~2020-08-25] VITALS: Ht 162.6 cm; Wt 104.0 kg
[~2020-08-25 23:02] MED LIST changes: +ALBU2.5V8 IH
--- NOTE | 2020-08-26 02:03 | PHYS DOC ---
Past History Past Medical History: Asthma, Bronchitis, Ectopic , Migraines Past Surgical History: , Oophorectomy, Other Additional Past Surgical Histo: ECTOPIC Smoking: Non-smoker Alcohol Use: None Drug Use: Marijuana General Adult EDM: Chief Complaint: SKIN RASH/ABSCESS HPI: HPI: "..I got the red spots everywhere... they itch and burn.. I recently had bronchitis.. and I was on Azithromax.. but then they stopped it because .. they thought I had an allergic reaction..." Patient is a 35 year old female who presents with above hx and complaints of rash. Patient has multiple small 1 cm circumference lesions over her body with localized inflammation. Appear to be insect bite-like more consistently with chigger bites. Does have a history of recently out in the grass approximately 3 days ago before onset of bite jane. Patient was recently started on Zithromax for complaints of chest cold. Patient states this drug was stopped when she developed the red areas on her skin. Patient negative COVID. Pt. follows with Dr. Hayes No recent travel. No specific ill contacts. No history immunosuppression. Review of Systems: Review of Systems: Constitutional: Denies fever or chills Eyes: Denies change in visual acuity HENT: Denies nasal congestion or sore throat Respiratory: Denies cough or shortness of breath Cardiovascular: Denies chest pain or edema GI: Denies abdominal pain, nausea, vomiting, bloody stools or diarrhea : Denies dysuria Musculoskeletal: Denies back pain or joint pain Integument: Complains of multiple small inflamed insect bites Neurologic: Denies headache, focal weakness or sensory changes Endocrine: Denies polyuria or polydipsia Lymphatic: Denies swollen glands Psychiatric: Denies depression or anxiety Family History: Family History: Noncontributory presentation Current Medications: Current Meds: See nursing for home meds Allergies: Allergies: Allergies Coded Allergies Type Severity Reaction Last Updated Verified No Known Drug Allergies 11/18/18 No Physical Exam: PE: Constitutional: Moderate acute distress, non-toxic appearance. [] HENT: Normocephalic, atraumatic, bilateral external ears normal, oropharynx moist, no oral exudates, nose normal. [] Eyes: PERRLA, EOMI, conjunctiva normal, no discharge. [] Neck: Normal range of motion, no tenderness, supple, no stridor. [] Cardiovascular:Heart rate regular rhythm, no murmur [] Lungs & Thorax: Bilateral breath sounds equal apex of few scattered wheezes on auscultation [] Abdomen: Bowel sounds normal, soft, no tenderness, no masses, no pulsatile masses. Obese. Skin: Warm, dry, no erythema, multiple areas that appeared to be chigger bites that have become inflamed and cellulitic. Back: No tenderness, no CVA tenderness. [] Extremities: No tenderness, no cyanosis, no clubbing, ROM intact, no edema. [] Neurologic: Alert and oriented X 3, normal motor function, normal sensory function, no focal deficits noted. [] Psychologic: Affect anxious, judgement normal, mood normal. [] EKG: EKG: [] Radiology/Procedures: Radiology/Procedures: [] Heart Score: C/O Chest Pain: N/A Risk Factors: Risk Factors: DM, Current or recent (<one month) smoker, HTN, HLP, family history of CAD, obesity. Risk Scores: Score 0 - 3: 2.5% MACE over next 6 weeks - Discharge Home Score 4 - 6: 20.3% MACE over next 6 weeks - Admit for Clinical Observation Score 7 - 10: 72.7% MACE over next 6 weeks - Early Invasive Strategies Course & Med Decision Making: Course & Med Decision Making Pertinent Labs and Imaging studies reviewed. (See chart for details) Patient to wash skin lesions 4 times a day after washing to massage and Polysporin at each lesion site. Patient take Benadryl 50 mg with 4 times a day for itching. Patient take Bactrim DS twice a day for the next 10 days. Follow- up primary care. Return if any concerns. May also take ibuprofen for discomfort. Impression: 1. Chigger Bites 2. Localized Cellulitis 3. Hx of Bronchitis [] Dragon Disclaimer: Dragon Disclaimer: This electronic medical record was generated, in whole or in part, using a voice recognition dictation system. Departure Departure: Referrals: ADRIAN HAYES MD (PCP) Scripts Sulfamethoxazole/Trimethoprim (BACTRIM DS TABLET) 1 Each Tablet 1 TAB PO BID for cellulitis for 10 Days, #20 TAB 0 Refills Prov: JARON CARRILLO MD 08/26/20 Levi Disclaimer This chart was dictated in whole or in part using Voice Recognition software in a busy, high-work load, and often noisy Emergency Department environment. It may contain unintended and wholly unrecognized errors or omissions. JARON CARRILLO MD Aug 26, 2020 02:03
[2020-08-26] MEDS ORDERED: SULF1TAB24 PO (02:57)
[2020-08-26] MEDS ORDERED: SMZ/TMP 800/160MG TABLET. PO ONE (03:00)
[2020-08-26 03:30] VITALS: BP 164/114
== END 2020-08-26 03:30 | disposition home or self-care (01) ==
LOC: ER 23:02
DX: S30.861A Insect bite (nonvenomous) of abdominal wall, initial encounter (principal); S80.862A Insect bite (nonvenomous), left lower leg, initial encounter; S80.861A Insect bite (nonvenomous), right lower leg, initial encounter; L03.818 Cellulitis of other sites; J45.909 Unspecified asthma, uncomplicated; G43.909 Migraine, unspecified, not intractable, without status migrainosus; W57.XXXA Bitten or stung by nonvenomous insect and other nonvenomous arthropods, initial encounter; Y93.89 Activity, other specified; Y92.89 Other specified places as the place of occurrence of the external cause; Y99.8 Other external cause status
CPT/HCPCS: 99283

== ENCOUNTER 2021-03-28 16:47 | Emergency (ER) | payer OTHER ==
[~2021-03-28] VITALS: Ht 162.6 cm; Wt 108.3 kg
[~2021-03-28 16:47] MED LIST changes: +DICY20TA PO; -DICY20TA3 PO
[2021-03-28] MEDS ORDERED: CEFDINIR 300 MG CAPSULE PO STA (17:22)
[2021-03-28] MEDS ORDERED: CEFD300C PO (17:38)
--- NOTE | 2021-03-28 17:39 | PHYS DOC ---
Past History Past Medical History: Asthma, Bronchitis, Ectopic , Migraines Past Surgical History: , Oophorectomy, Other Additional Past Surgical Histo: ECTOPIC Smoking: Non-smoker Alcohol Use: None Drug Use: Marijuana General Adult EDM: Chief Complaint: EARACHE/EAR PAIN HPI: HPI: 35-year-old female presents with right ear pain. She has had this pain for 2 days. It is much worse today than yesterday. She is concerned about infection. She has not had an ear infection in many years. She denies fever or chills. She has no other complaints this time. Review of Systems: Review of Systems: Constitutional: Denies fever or chills Eyes: Denies change in visual acuity HENT: Right ear pain Respiratory: Denies cough or shortness of breath Cardiovascular: Denies chest pain or edema GI: Denies abdominal pain, nausea, vomiting, bloody stools or diarrhea : Denies dysuria Musculoskeletal: Denies back pain or joint pain Integument: Denies rash Neurologic: Denies headache, focal weakness or sensory changes Endocrine: Denies polyuria or polydipsia Lymphatic: Denies swollen glands Psychiatric: Denies depression or anxiety Current Medications: Current Meds: Current Medications Medications (Trade) Dose Ordered Sig/Dayna Start Time Stop Time Status Last Admin Dose Admin Cefdinir (Omnicef) 600 mg ONCE STAT 03/28/21 17:22 03/28/21 17:23 UNV Allergies: Allergies: Allergies Coded Allergies Type Severity Reaction Last Updated Verified No Known Drug Allergies 03/28/21 No Physical Exam: PE: Constitutional: Well developed, well nourished, morbidly obese, no acute distress, non-toxic appearance. [] HENT: Normocephalic, atraumatic, bilateral external ears normal, oropharynx moist, no oral exudates, nose normal. Left tympanic membrane normal. Right tympanic membrane erythematous and bulging. [] Eyes: PERRLA, EOMI, conjunctiva normal, no discharge. [] Neck: Normal range of motion, no tenderness, supple, no stridor. [] Cardiovascular: Heart rate regular rhythm, no murmur [] Lungs & Thorax: Bilateral breath sounds clear to auscultation [] Abdomen: Bowel sounds normal, soft, no tenderness, no masses, no pulsatile masses. [] Skin: Warm, dry, no erythema, no rash. [] Back: No tenderness, no CVA tenderness. [] Extremities: No tenderness, no cyanosis, no clubbing, ROM intact, no edema. [] Neurologic: Alert and oriented X 3, normal motor function, normal sensory function, no focal deficits noted. [] Psychologic: Affect normal, judgement normal, mood normal. [] Current Patient Data: Vital Signs: Vital Signs Date Time Temp Pulse Resp B/P (MAP) Pulse Ox O2 Delivery O2 Flow Rate FiO2 03/28/21 17:20 97.9 75 18 149/106 (120) 96 Room Air EKG: EKG: [] Radiology/Procedures: Radiology/Procedures: [] Heart Score: C/O Chest Pain: N/A Risk Factors: Risk Factors: DM, Current or recent (<one month) smoker, HTN, HLP, family history of CAD, obesity. Risk Scores: Score 0 - 3: 2.5% MACE over next 6 weeks - Discharge Home Score 4 - 6: 20.3% MACE over next 6 weeks - Admit for Clinical Observation Score 7 - 10: 72.7% MACE over next 6 weeks - Early Invasive Strategies Course & Med Decision Making: Course & Med Decision Making Pertinent Labs and Imaging studies reviewed. (See chart for details) The patient appears to have a right otitis media. I will treat her with cefdinir for 10 days. We will give the first dose in the emergency room. She is stable for discharge at this time. [] Dragon Disclaimer: Dragon Disclaimer: This electronic medical record was generated, in whole or in part, using a voice recognition dictation system. Departure Departure: Impression: Primary Impression: Right otitis media Disposition: HOME / SELF CARE / HOMELESS Condition: STABLE Referrals: ADRIAN QUIROGA MD (PCP) Patient Instructions: Otitis Media, Adult, [id number] Scripts Cefdinir (CEFDINIR) 300 Mg Capsule 2 CAP PO DAILY for ear infection for 9 Days, #18 CAP Prov: PHAN LAMBERT DO 03/28/21 PHAN LAMBERT DO Mar 28, 2021 17:39
[2021-03-28 17:46] VITALS: BP 126/95
== END 2021-03-28 17:45 | disposition home or self-care (01) ==
LOC: ER 16:47
DX: H66.91 Otitis media, unspecified, right ear (principal); J45.909 Unspecified asthma, uncomplicated; G43.909 Migraine, unspecified, not intractable, without status migrainosus
CPT/HCPCS: 99283

== ENCOUNTER 2021-06-14 08:09 | Emergency (ER) | payer OTHER ==
[~2021-06-14] VITALS: Ht 162.6 cm; Wt 110.0 kg
[~2021-06-14 08:09] MED LIST changes: +CEFD300C PO
--- NOTE | 2021-06-14 09:05 | PHYS DOC ---
Past History Past Medical History: Asthma, Bronchitis, Ectopic , Migraines Additional Past Medical Histor: ovarian cysts Past Surgical History: , Oophorectomy, Other Additional Past Surgical Histo: ECTOPIC Smoking: Non-smoker Alcohol Use: None Drug Use: Marijuana Social History Narrative: rare General Adult EDM: Chief Complaint: MULTIPLE COMPLAINTS HPI: HPI: Patient is a 35-year-old female presenting with multiple complaints. Patient states she has had cold and flulike symptoms with a productive cough, body aches headache diarrhea for the past 2 days. Patient is also complaining of left to her patient states that she has been having dark red vaginal discharge since her period ended. Patient's daughter was sick last week with similar symptoms and diagnosed with otitis media and bronchitis. Patient has not had her flu or Covid vaccines. Denies any urinary complaints. Last p.o. intake yesterday Review of Systems: Review of Systems: All other systems within normal limits except for as noted in the HPI Allergies: Allergies: Allergies Coded Allergies Type Severity Reaction Last Updated Verified No Known Drug Allergies 03/28/21 No Physical Exam: PE: Constitutional: Well developed, well nourished, no acute distress, non-toxic appearance. [] HENT: Normocephalic, atraumatic, bilateral external ears normal, nose normal. [] Eyes: PERRLA, conjunctiva normal, no discharge. [] Neck: No rigidity, supple, no stridor. [] Cardiovascular: Regular rate and rhythm, brisk cap refill [] Lungs & Thorax: Non labored symmetric respirations, no tachypnea or respiratory distress [] Abdomen: Soft, nondistended, tenderness in left lower quadrant. Skin: Warm, dry, no erythema, no rash. [] Back: Unremarkable, left CVA tenderness Extremities: No deformities, range of motion grossly intact, no lower extremity edema [] Neurologic: Alert and oriented X 3, no focal deficits noted. [] Psychologic: Affect normal, judgement normal, mood normal. [] Current Patient Data: Labs: RUN DATE: 06/14/21 [facility] *LIVE* PAGE 1 RUN TIME: 1105 Specimen Inquiry PATIENT: MINDI GARCIA ACCT: [id number] LOC: WING U: [id number] AGE/SX: 35/F ROOM: RE06/14/[address]: LITTLE MERCHANT MD : 1985 BED: DIS: STATUS: REG ER TLOC: -- SPEC #: [id number] CRISTELA: 06/14/21-5 STATUS: COMP REQ #: [id number] RECD: 06/14/21-[address] [facility] [address]: LITTLE MERCHANT MD SOURCE: VAGINAL ENTR: 06/14/[address] [facility] [address]: ADRIAN QUIROGA MD SPDESC: ORDERED: WET PREP COMMENTS: Has specimen been collected/obtained? Y Procedure Result WET PREP Final YEAST NONE SEEN TRICHOMONAS NONE SEEN CLUE CELLS NONE SEEN ALTERED GENNA ALTERED GENNA PRESENT SUGGESTIVE OF BACTERIAL VAGINOSIS WBCS OCCASIONAL SQUAMOUS EPS MODERATE Laboratory Tests Test 06/14/21 07:57 POC Urine HCG, Qualitative hcg negative (Negative) Vital Signs: Vital Signs Date Time Temp Pulse Resp B/P (MAP) Pulse Ox O2 Delivery O2 Flow Rate FiO2 06/14/21 08:20 98.0 73 18 144/97 (113 97 EKG: EKG: [] Radiology/Procedures: Radiology/Procedures: [place] [address] IMAGING REPORT Signed PATIENT: MINDI GARCIA ACCOUNT: [id number] : 1985 LOCATION: ER AGE: 35 SEX: F EXAM STATUS: REG ER ORD. PHYSICIAN: LITTLE MERCHANT MD REASON: ovarian cyst, r/o torsion PROCEDURE: PELVIS COMPLETE US PELVIS COMPLETE History: ovarian cyst, r/o torsion Comparison: CT chest abdomen and pelvis/ Technique: Sonographic examination of the pelvis was performed with transabdominal technique. Findings: Uterus- Uterine parenchyma: Homogeneous without fibroids. Uterine measurements: 10.1 x 5.2 x 6.3 cm Cervix: Unremarkable. Endometrium- Endometrial Stripe: No abnormal fluid collections in the endometrial cavity, no obvious mass, and no abnormal blood flow within the endometrium by Doppler. Thickness: 6 mm. Adnexa- Right Ovary: Identified and appears normal. Size: 2.3 x 1.6 x 1.8 cm Doppler: Normal. Left Ovary: Contains a 3.0 x 2.8 x 3.3 cm anechoic cyst. Size: 4.6 x 3.7 x 4.6 cm Doppler: Normal. Other: No abnormal adnexal masses. No abnormal free fluid in the pelvis. Impression: 1. No acute pelvic findings. No evidence of ovarian torsion. Benign 3.3 cm left ovarian cyst. Electronically signed by: Josr Maldonado MD (06/14/2021 12:30 PM) [id number] DICTATED AND SIGNED BY: JOSR MALDONADO MD DATE: 06/14/21 1228 CC: LITTLE MERCHANT MD; ADRIAN QUIROGA MD ~ [][address] [address] IMAGING REPORT Signed PATIENT: MINDI GARCIA ACCOUNT: [id number] : 1985 LOCATION: ER AGE: 35 SEX: F EXAM STATUS: REG ER ORD. PHYSICIAN: LITTLE MERCHANT MD REASON: cough, LLQ and left flank pain PROCEDURE: CT CHEST ABD PELVIS W/CONTRAST PQRS Compliance Statement: One or more of the following individualized dose reduction techniques were utilized for this examination: 1. Automated exposure control 2. Adjustment of the mA and/or kV according to patient size 3. Use of iterative reconstruction technique Exam performed: CT chest abdomen pelvis with contrast HISTORY: Cough, left lower quadrant abdominal pain DATE OF SERVICE: 06/14/2021. COMPARISON: CT abdomen and pelvis from 2019 TECHNIQUE: Contiguous helical acquisitions are obtained through the chest, abdomen and pelvis during intravenous administration of 75 cc of Omnipaque 300. Sagittal and coronal reformatted images are obtained and reviewed. FINDINGS: CT of chest: Structures at the thoracic inlet including both lobes of the thyroid gland appear normal. The neck and intrathoracic great vessels appear normal in course and caliber. No mediastinal or hilar adenopathy is seen. Aorta is normal in caliber, mild ectasia of the ascending aorta noted. Heart size is normal without pericardial effusion interrogation of lungs demonstrates no infiltrates or suspicious nodules. A tiny 2 to 3 mm faint nodule in the medial right lower lobe has been present since the prior CT abdomen pelvis from 2019 and is considered benign. There is no pleural effusion or pneumothorax. Interrogation of bone wind ows is unremarkable. CT abdomen and pelvis: The lung bases are essentially clear. The visualized heart is normal. The liver, gallbladder, spleen and pancreas appear normal. Both adrenal glands and bilateral kidneys are normal in size with symmetric excretion of contrast via both kidneys. There is no hydronephrosis or nephrolithiasis. Aorta is normal in caliber without aneurysm. No retroperitoneal or mesenteric lymphadenopathy seen. The small and large bowel loops are nondilated and unremarkable. Visualiz ed appendix is normal. The uterus is anteverted. Bilateral ovarian cysts are seen, greater on the left. The left cyst measures up to 3.8 cm. There is no free fluid. Interrogation of bone windows is unremarkable. IMPRESSION: CT CHEST: No acute findings seen in the chest. CT abdomen and pelvis: Bilateral ovarian cysts, greater on the left. These are perhaps physiological, however evaluation with abdominal ultrasound may be obtained. Electronically signed by: Cristo Snyder MD (06/14/2021 10:01 AM) [facility] DICTATED AND SIGNED BY: CRISTO SNYDER MD DATE: 06/14/21951 CC: LITTLE MERCHANT MD; ADRINA QUIROGA MD ~ Heart Score: C/O Chest Pain: No Risk Factors: Risk Factors: DM, Current or recent (<one month) smoker, HTN, HLP, family history of CAD, obesity. Risk Scores: Score 0 - 3: 2.5% MACE over next 6 weeks - Discharge Home Score 4 - 6: 20.3% MACE over next 6 weeks - Admit for Clinical Observation Score 7 - 10: 72.7% MACE over next 6 weeks - Early Invasive Strategies Course & Med Decision Making: Course & Med Decision Making Pertinent Labs and Imaging studies reviewed. (See chart for details) [] Dragon Disclaimer: Dragon Disclaimer: This electronic medical record was generated, in whole or in part, using a voice recognition dictation system. Departure Departure: Impression: Primary Impression: Bacterial vaginosis Additional Impression: Ovarian cyst Disposition: HOME / SELF CARE / HOMELESS Condition: STABLE Referrals: ADRIAN QUIROGA MD (PCP) Patient Instructions: Bacterial Vaginosis, Izdi-ox-Koyy Scripts Metronidazole (METRONIDAZOLE) 500 Mg Tablet 1 TAB PO BID for antibiotic for 7 Days, #14 TAB 0 Refills Prov: LITTLE MERCHANT MD 06/14/21 Ibuprofen (IBUPROFEN) 800 Mg Tablet 1 TAB PO PRN Q8HRS PRN for PAIN, #30 TAB Prov: LITTLE MERCHANT MD 06/14/21 Hydrocodone/Acetaminophen (Hydrocodone-Acetamin 5-325 mg) 1 Each Tablet 1 EACH PO PRN Q6-8HRS PRN for PAIN, #8 TAB Prov: LITTLE MERCHANT MD 06/14/21 LITTLE MERCHANT MD Jun 14, 2021 09:05
[2021-06-14] MEDS ORDERED: IV NORMAL SALINE 1,000ML 1,000 ML IV ONE (09:15)
[2021-06-14] MEDS ORDERED: KETOROLAC 15 MG/ML VIAL. IVP ONE (09:15)
[2021-06-14] MEDS ORDERED: IOHEXOL 300 MG/ML 75 ML VIAL. IV ONE (09:15)
[2021-06-14] MEDS ORDERED: ONDANSETRON PF 4 MG/2 ML VIAL. IVP ONE (09:15)
[2021-06-14 09:18] LABS: BASO % 1 % (0-3); EOS # 0.1 x10^3/uL (0.0-0.7); EOS % 3 % (0-3); HEMATOCRIT 40.1 % (36.0-47.0); HEMOGLOBIN 13.8 g/dL (12.0-15.5); LYMPH # 1.3 x10^3/uL (1.0-4.8); LYMPH % 29 % (24-48); MEAN CORPUSCULAR HEMOGLOBIN 35 pg (25-35); MEAN CORPUSCULAR HGB CONC 35 g/dL (31-37); MEAN CORPUSCULAR VOLUME 102 fL (79-100); MONO # 0.3 x10^3/uL (0.0-1.1); MONO % 7 % (0-9); NEUT # 2.6 x10^3uL (1.8-7.7); NEUT % 61 % (31-73); PLATELET COUNT 188 x10^3/uL (140-400); RED BLOOD COUNT 3.91 x10^6/uL (3.50-5.40); RED CELL DISTRIBUTION WIDTH 12.2 % (11.5-14.5); WHITE BLOOD COUNT 4.3 x10^3/uL (4.0-11.0)
[2021-06-14 09:26] LABS: CALCIUM 8.5 mg/dL (8.5-10.1); CREATININE 0.6 mg/dL (0.6-1.0); GFR 113.1; POTASSIUM 4.2 mmol/L (3.5-5.1)
[2021-06-14 09:31] LABS: BACTERIA,URINE FEW /HPF (0-FEW); CLARITY,URINE CLEAR; COLOR,URINE YELLOW; GLUCOSE,URINE NEG (NEG); NITRITE,URINE NEG (NEG); RBC,URINE OCC /HPF (0-2); SQUAMOUS EPITHELIAL CELL,UR FEW /LPF; WBC,URINE OCC /HPF (0-4)
[2021-06-14 09:32] LABS: ALBUMIN 3.6 g/dL (3.4-5.0); ALBUMIN/GLOBULIN RATIO 1.2 (1.0-1.7); TOTAL BILIRUBIN 0.6 mg/dL (0.2-1.0); TOTAL PROTEIN 6.7 g/dL (6.4-8.2)
--- NOTE | 2021-06-14 10:04 | RAD ---
PQRS Compliance Statement: One or more of the following individualized dose reduction techniques were utilized for this examinat ion: 1. Automated exposure control 2. Adjustment of the mA and/or kV according to patient size 3. Use of iterative reconstruction technique Exam performed: CT chest abdomen pelvis with contrast HISTORY: Cough, left lower quadrant abdominal pain DATE OF SERVICE: 06/14/2021. COMPARISON: CT abdomen and pelvis from 2019 TECHNIQUE: Contiguous helical acquisitions are obtained through the chest, abdomen and pelvis during intravenous administration of 75 cc of Omnipaque 300. Sagittal and coronal reformatted images are obt ained and reviewed. FINDINGS: CT of chest: Structures at the thoracic inlet including both lobes of the thyroid gland appear normal. The neck an d intrathoracic great vessels appear normal in course and caliber. No mediastinal or hilar adenopathy is seen. Aorta is normal in caliber, mild ectasia of the ascending aorta noted. Heart size is normal without pericardial effusion interrogation of lungs demonstrates no infiltrates or suspicious nodule s. A tiny 2 to 3 mm faint nodule in the medial right lower lobe has been present since the prior CT a bdomen pelvis from 2019 and is considered benign. There is no pleural effusion or pneumothorax. Inter rogation of bone windows is unremarkable. CT abdomen and pelvis: The lung bases are essentially clear. The visualized heart is normal. The liver, gallbladder, spleen and pancreas appear normal. Both adrenal glands and bilateral kidneys are normal in size with symmetric excretion of contrast via both kidneys. There is no hydronephrosis or nephrolithiasis. Aorta is normal in caliber without aneurysm. No retroperitoneal or mesenteric lym phadenopathy seen. The small and large bowel loops are nondilated and unremarkable. Visualized append ix is normal. The uterus is anteverted. Bilateral ovarian cysts are seen, greater on the left. The left cyst measur es up to 3.8 cm. There is no free fluid. Interrogation of bone windows is unremarkable. IMPRESSION: CT CHEST: No acute findings seen in the chest. CT abdomen and pelvis: Bilateral ovarian cysts, greater on the left. These are perhaps physiological, however evaluation wit h abdominal ultrasound may be obtained. Electronically signed by: Chanell Snyder MD (06/14/2021 10:01 AM) [facility]
[2021-06-14 11:11] LABS: INFLUENZA A PATIENT NEGATIVE (NEGATIVE); INFLUENZA B PATIENT NEGATIVE (NEGATIVE)
--- NOTE | 2021-06-14 12:33 | RAD ---
US PELVIS COMPLETE History: ovarian cyst, r/o torsion Comparison: CT chest abdomen and pelvis/ Technique: Sonographic examination of the pelvis was performed with transabdominal technique. Findings: Uterus- Uterine parenchyma: Homogeneous without fibroids. Uterine measurements: 10.1 x 5.2 x 6.3 cm Cervix: Unremarkable. Endometrium- Endometrial Stripe: No abnormal fluid collections in the endometrial cavity, no obvious mass, and no abnormal blood flow within the endometrium by Doppler. Thickness: 6 mm. Adnexa- Right Ovary: Identified and appears normal. Size: 2.3 x 1.6 x 1.8 cm Doppler: Normal. Left Ovary: Contains a 3.0 x 2.8 x 3.3 cm anechoic cyst. Size: 4.6 x 3.7 x 4.6 cm Doppler: Normal. Other: No abnormal adnexal masses. No abnormal free fluid in the pelvis. Impression: 1. No acute pelvic findings. No evidence of ovarian torsion. Benign 3.3 cm left ovarian cyst. Electronically signed by: Josr Olivarez MD (06/14/2021 12:30 PM) [id number]
[2021-06-14] MEDS ORDERED: HYDR-2759 PO (12:54)
[2021-06-14] MEDS ORDERED: IBUP800T19 PO (12:54)
[2021-06-14] MEDS ORDERED: METR-34 PO (12:54)
[2021-06-14 15:00] VITALS: BP 143/83
[2021-06-16 12:11] LABS: CHLAMYDIA PROBE Negative (Negative)
== END 2021-06-14 15:07 | disposition home or self-care (01) ==
LOC: ER 08:09
DX: N76.0 Acute vaginitis (principal); B96.89 Other specified bacterial agents as the cause of diseases classified elsewhere; N83.202 Unspecified ovarian cyst, left side; J45.909 Unspecified asthma, uncomplicated; G43.909 Migraine, unspecified, not intractable, without status migrainosus; Z20.822 Contact with and (suspected) exposure to COVID-19
CPT/HCPCS: 71260; 74177; 76856; 80053; 81001; 81025; 83690; 85025; 86140; 87428; 87491; 87591; 96361; 96374; 96375; 99285; J1885; J2405; J3010; J7030; Q0111; Q9967

== ENCOUNTER 2021-06-29 19:09 | Emergency (ER) | payer OTHER ==
[~2021-06-29] VITALS: Ht 162.6 cm; Wt 110.0 kg
[~2021-06-29 19:09] MED LIST changes: +HYDR-2759 PO; +IBUP800T19 PO; +METR-34 PO
--- NOTE | 2021-06-29 19:39 | PHYS DOC ---
Past History Past Medical History: Asthma, Bronchitis, Ectopic , Migraines Additional Past Medical Histor: ovarian cysts Past Surgical History: , Oophorectomy, Other Additional Past Surgical Histo: ECTOPIC Smoking: Non-smoker Alcohol Use: None Drug Use: Marijuana General Adult EDM: Chief Complaint: CHEST PAIN HPI: HPI: Patient is a 35-year-old female who presents with multiple complaints. She reports having dental pain for several days. She reports having left arm cramping and pain since this morning. This pain has been constant and unremitting. No tingling or motor motor weakness reported. She also reports lower chest and upper abdominal discomfort, she describes constant, unremitting pressure, pain does not radiate. No back or flank pain. No urinary symptoms. No lower abdominal pain. She describes mild shortness of breath and mild pleuritic pain. She reports nausea, no vomiting. She reports mild dizziness. No syncope or near syncope. No diaphoresis. Her upper abdominal pain and lower chest pain symptoms began this morning as well. No specific exacerbating or relieving factors. No worsening symptoms with exertion or at rest. She reports left calf pain. No lower extremity swelling. No recent surgery, travel, immobilization or hospitalization. LMP within the last month. She is not taking any exogenous hormones. She denies any family history of early coronary disease or sudden cardiac at a young age. Review of Systems: Review of Systems: Constitutional: Denies fever or chills Eyes: Denies change in visual acuity HENT: Denies nasal congestion or sore throat Respiratory: Denies cough or hemoptysis. Reports mild shortness of breath and pleuritic discomfort of her chest Cardiovascular: Reports lower chest pain, denies palpitations, syncope or near syncope. Denies lower extremity swelling. GI: Epigastric abdominal pain, nausea, denies vomiting initially, she does begin vomiting on arrival. Denies constipation or diarrhea. : Denies Coleman symptoms Musculoskeletal: Denies back pain or joint pain Integument: Denies rash Neurologic: Denies headache, focal weakness or sensory changes, reports mild dizziness. No syncope or near syncope. No fall or head injury. Endocrine: Denies polyuria or polydipsia Lymphatic: Denies swollen glands Psychiatric: Mild anxiety, denies SI or HI. Allergies: Allergies: Allergies Coded Allergies Type Severity Reaction Last Updated Verified No Known Drug Allergies 03/28/21 No Physical Exam: PE: Constitutional: Well developed, well nourished, no acute distress, non-toxic appearance. [] HENT: Normocephalic, atraumatic, oropharynx is patent and clear. Mucous membranes are moist Eyes: Sclera are anicteric Neck: Normal range of motion, no tenderness, supple, no stridor. Trachea is midline. No JVD. No meningismus Cardiovascular:Heart rate regular rhythm, no murmur, +2 radial and +2 posterior tibial pulses bilaterally. No cyanosis. No edema. Warm and well-perfused appearing. Lungs & Thorax: Clear to auscultation bilaterally without rales, rhonchi or wheezes. Equal chest rise. No tachypnea. No retractions. No distress. Abdomen: Abdomen is obese, soft, nondistended, epigastric tenderness to palpation, mild voluntary guarding, no rebound tenderness. No lower abdominal tenderness. No right upper quadrant tenderness. No CVA tenderness. No flank or abdominal ecchymoses. No palpable pulsatile mass. Skin: Warm, dry, no erythema, no rash. No jaundice. Back: No tenderness, no CVA tenderness. Full ROM. Extremities: No tenderness, no cyanosis, no clubbing, ROM intact, no edema. Mild left calf tenderness. Negative Homans. No palpable cord. No erythema. No limb deformity. Neurologic: Alert and oriented X 3, normal motor function, normal sensory function, no focal deficits noted. [] Psychologic: Affect wildly anxious. She is cooperative. EKG: EKG: EKG is interpreted at 1924 Rhythm is sinus Rate is 63 bpm [place] is normal No STEMI EKG is interpreted at 2259 Rhythm is sinus Rate is 83 bpm [place] is normal No STEMI Radiology/Procedures: Radiology/Procedures: IMAGING REPORT Signed PATIENT: MINDI GARCIA ACCOUNT: [id number] : 1985 LOCATION: ER AGE: 35 SEX: F EXAM STATUS: REG ER ORD. PHYSICIAN: ADELAIDA SEPULVEDA DO REASON: chest pain PROCEDURE: PORTABLE CHEST 1V AP portable chest radiograph 06/29/2021 Clinical History: Chest pain. An AP erect portable digital radiograph of the chest was obtained. Comparison study is dated 03/05/2020. The cardiac and mediastinal silhouettes are within normal limits in size and configuration. No pulmonary infiltrate is seen. No pleural effusion or pneumothorax is noted. The osseous structures are grossly intact. Impression: No acute abnormality is seen. Electronically signed by: Tamir Chavez MD (06/29/2021 8:23 PM) [id number] DICTATED AND SIGNED BY: TAMIR CHAVEZ MD DATE: 06/29/212018 CC: ADELAIDA SEPULVEDA DO; ADRIAN QUIROGA MD ~ Heart Score: C/O Chest Pain: Yes HEART Score for Chest Pain: HEART Score for Chest Pain Response (Comments) Value History Slighlty/Non-Suspicious 0 ECG Normal 0 Age < 45 0 Risk Factors 1 or 2 Risk Factors 1 Troponin < Normal Limit 0 Total 1 Risk Factors: Risk Factors: DM, Current or recent (<one month) smoker, HTN, HLP, family history of CAD, obesity. Risk Scores: Score 0 - 3: 2.5% MACE over next 6 weeks - Discharge Home Score 4 - 6: 20.3% MACE over next 6 weeks - Admit for Clinical Observation Score 7 - 10: 72.7% MACE over next 6 weeks - Early Invasive Strategies Course & Med Decision Making: Course & Med Decision Making Pertinent Labs and Imaging studies reviewed. (See chart for details) Patient was initially given sublingual nitroglycerin, she reported some relief, but then she began experiencing nausea and vomiting symptoms. Her chest pain has resolved. She does still have some mild epigastric discomfort. She is given IV fluids, IV Zofran, IV Benadryl, IV Reglan. Serial troponin negative. Serial EKGs are performed, they are unremarkable and nonischemic. Tylenol was given for her headache. She did vomit several times. Symptoms of nausea and vomiting have resolved after Reglan and Benadryl. Right lower extremity venous Doppler is negative for DVT. I have discussed the findings, differential diagnosis and plan of care with her. I do suspect underlying GI source for pain. Her chest pain is somewhat atypical, D-dimer is negative, no ischemia on EKG, serial troponin exams are negative. She does have a history of marijuana use. She reports no recent use, though she is still positive on drug screen. I have discussed all of the findings, differential diagnosis and plan of care with her. She is now tolerating oral fluids without difficulty. She has a benign, non-surgical abdominal exam. She feels comfortable with the plan for di scharge home. Return precautions are given. Levi Disclaimer: Levi Disclaimer: This electronic medical record was generated, in whole or in part, using a voice recognition dictation system. Departure Departure: Impression: Primary Impression: Atypical chest pain Additional Impressions: Epigastric abdominal pain Nausea and vomiting Qualified Codes: R11.2 - Nausea with vomiting, unspecified Disposition: HOME / SELF CARE / HOMELESS Condition: STABLE Referrals: ADRIAN QUIROGA MD (PCP) CYNTHIA CHEUNG MD, SCOTT S MD Patient Instructions: Chest Pain (Nonspecific), Gastritis, Adult, Nausea and Vomiting Additional Instructions: Use the prescription medication as needed/as directed. Return for more severe pain, difficulty breathing, coughing up blood, more severe abdominal pain, vomiting blood, temperature of 100.4 or higher, or for any other concerns. Eat a bland diet, drink clear fluids. Avoid spicy, greasy or salty foods. Avoid marijuana use, as this could exacerbate your symptoms. Follow up with your primary care doctor, and if your symptoms persist, you should also see outpatient cardiology and GI services. Scripts Omeprazole (OMEPRAZOLE) 20 Mg Capsule.dr 1 CAP PO DAILY for gastritis, #30 CAP 0 Refills Prov: ADELAIDA SEPULVEDA DO 06/30/21 Ondansetron (ONDANSETRON ODT) 4 Mg Tab.rapdis 1 TAB PO PRN Q6-8HRS for nausea and vomiting, #30 TAB Prov: ADELAIDA SEPULVEDA DO 06/30/21 ADELAIDA SEPULVEDA DO June 29, 2021 19:39
[2021-06-29] MEDS ORDERED: ASPIRIN CHEWABLE 81 MG TABLET. PO ONE (20:00)
[2021-06-29] MEDS: NITROGLYCERIN SUBLINGUAL 0.4 MG BOTTLE OF 25. SL PRN ×2 (20:03→20:10)
[2021-06-29 20:15] LABS: BASO % 1 % (0-3); EOS # 0.1 x10^3/uL (0.0-0.7); EOS % 2 % (0-3); HEMATOCRIT 37.7 % (36.0-47.0); HEMOGLOBIN 13.3 g/dL (12.0-15.5); LYMPH # 2.1 x10^3/uL (1.0-4.8); LYMPH % 48 % (24-48); MEAN CORPUSCULAR HEMOGLOBIN 36 pg (25-35); MEAN CORPUSCULAR HGB CONC 35 g/dL (31-37); MEAN CORPUSCULAR VOLUME 102 fL (79-100); MONO # 0.4 x10^3/uL (0.0-1.1); MONO % 10 % (0-9); NEUT # 1.7 x10^3uL (1.8-7.7); NEUT % 39 % (31-73); PLATELET COUNT 196 x10^3/uL (140-400); RED BLOOD COUNT 3.71 x10^6/uL (3.50-5.40); WHITE BLOOD COUNT 4.3 x10^3/uL (4.0-11.0)
--- NOTE | 2021-06-29 20:26 | RAD ---
AP portable chest radiograph 06/29/2021 Clinical History: Chest pain. An AP erect portable digital radiograph of the chest was obtained. Comparison study is dated 03/05/2020. The cardiac and mediastinal silhouettes are within normal limits in size and configuration. No pulmon yeimy infiltrate is seen. No pleural effusion or pneumothorax is noted. The osseous structures are michelle sly intact. Impression: No acute abnormality is seen. Electronically signed by: Tamir Chavez MD (06/29/2021 8:23 PM) [id number]
[2021-06-29 20:29] LABS: CALCIUM 8.2 mg/dL (8.5-10.1); CREATININE 0.7 mg/dL (0.6-1.0); GFR 94.7; POTASSIUM 3.7 mmol/L (3.5-5.1)
[2021-06-29 20:38] LABS: U PREG PATIENT NEGATIVE (NEG)
[2021-06-29 20:40] LABS: BACTERIA,URINE 0 /HPF (0-FEW); CLARITY,URINE CLEAR; COLOR,URINE YELLOW; GLUCOSE,URINE NEG (NEG); NITRITE,URINE NEG (NEG); RBC,URINE OCC /HPF (0-2); SQUAMOUS EPITHELIAL CELL,UR MOD /LPF; WBC,URINE 0 /HPF (0-4)
[2021-06-29 20:42] LABS: ALBUMIN 3.3 g/dL (3.4-5.0); ALBUMIN/GLOBULIN RATIO 1.1 (1.0-1.7); TOTAL BILIRUBIN 0.2 mg/dL (0.2-1.0); TOTAL PROTEIN 6.4 g/dL (6.4-8.2)
[2021-06-29 20:44] LABS: BARBITURATES NEG (NEG); BENZODIAZEPINES NEG (NEG); CANNABINOIDS POS (NEG); COCAINE NEG (NEG); METHADONE NEG (NEG); OPIATES NEG (NEG); PHENCYCLIDINE NEG (NEG)
[2021-06-29 20:47] LABS: AMPHETAMINE/METHAMPHETAMINE NEG (NEG)
--- NOTE | 2021-06-29 20:53 | EKG ---
[address] [address] Test Date: 2021-06-29 Test Time: 19:21:31 Pat Name: MINDI GARCIA Department: Room: Gender: F Rn Or Lpn: : 1985 Requested By: ADELAIDA SEPULVEDA Order Number: [id number] Reading MD: Measurements Intervals [place] Rate: 63 P: 49 UT: 150 QRS: 24 QRSD: 78 T: 39 QT: 390 QTc: 402 Interpretive Statements SINUS RHYTHM NO SPECIFIC ECG ABNORMALITIES RI6.02 No previous ECG available for comparison
[2021-06-29] MEDS ORDERED: ACETAMINOPHEN 500 MG TABLET PO ONE (22:30)
[2021-06-29] MEDS ORDERED: ONDANSETRON PF 4 MG/2 ML VIAL. IVP ONE (22:45)
[2021-06-29] MEDS ORDERED: IV NORMAL SALINE 1,000ML 1,000 ML IV ONE (22:45)
--- NOTE | 2021-06-29 23:32 | EKG ---
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
[2021-06-30] MEDS ORDERED: METOCLOPRAMIDE HCL 10 MG/2 ML VIAL. IVP ONE (00:15)
[2021-06-30] MEDS ORDERED: diphenhydrAMINE 50 MG/ML VIAL IVP ONE (00:15)
[2021-06-30] MEDS ORDERED: IV NORMAL SALINE 1,000ML 1,000 ML IV ONE (00:15)
--- NOTE | 2021-06-30 01:12 | RAD ---
INDICATION: Reason: LE pain / Spl. Instructions: Called US at 2233 / History: COMPARISON: None available TECHNIQUE: Grayscale, color and doppler ultrasound images were obtained of the left lower extremity v enous vasculature. LEFT: No thrombus identified in the common femoral vein, femoral vein, popliteal vein or visualized calf ve ins. IMPRESSION: * No thrombus identified in deep venous system of the left lower extremity. Electronically signed by: Rj Barrett MD (06/30/2021 1:10 AM) [facility] [id number]
[2021-06-30] MEDS ORDERED: ONDA4TAB12 PO (01:20)
[2021-06-30] MEDS ORDERED: OMEP20CA16 PO (01:20)
[2021-06-30 01:32] VITALS: BP 161/97
== END 2021-06-30 01:38 | disposition home or self-care (01) ==
LOC: ER 19:09
DX: R07.89 Other chest pain (principal); R10.13 Epigastric pain; R11.2 Nausea with vomiting, unspecified; K08.89 Other specified disorders of teeth and supporting structures; M79.662 Pain in left lower leg; J45.909 Unspecified asthma, uncomplicated; G43.909 Migraine, unspecified, not intractable, without status migrainosus
CPT/HCPCS: 36415; 71045; 80053; 80307; 81001; 81025; 83690; 83735; 83880; 84484; 85025; 85379; 85610; 85730; 93005; 93971; 96361; 96374; 96375; 99285; J1200; J2405; J2765; J7030